=== PATIENT | female | born 1935 | race Caucasian/White ===

== ENCOUNTER 2024-04-10 16:50 | Inpatient (IN) ==
--- NOTE | 2024-04-10 17:36 | Emergency Department Note ---
Impression & Plan Acute UTI, MATHIEU (acute kidney injury), High anion gap metabolic acidosis, Hyperglycemia due to type 2 diabetes mellitus, Acute dehydration, T12 compression fracture ED Provider Note NAME: SANDRA BRASHER AGE: 88 SEX: F : 1935 ARRIVES VIA: Ambulance INFORMANT: Patient ED PROVIDER(S): Rashard Holley MD CHIEF COMPLAINT: Weakness. PLAN: Disposition: Admit MEDICAL DECISION MAKING: The patient is a pleasant 88-year-old woman with a past medical history of diabetes, hypertension, hyperlipidemia who presents to the emergency department via EMS for evaluation of generalized weakness in setting of having a fall this past Friday where the patient reports she fell onto her buttocks and then backwards onto her back and hit her head. Since then the patient has been ambulating but has had increasing generalized weakness per family report to EMS though poor history provided per report. The patient reports that she is uncertain if she fell due to dizziness or if she tripped on anything. She reports she has had a cough throughout the week. She denies nausea, vomiting or diarrhea. Patient ports that she has had low back pain since her fall but otherwise denies any additional pain. She denies fevers. On evaluation the patient is no distress, afebrile with heart rate in the 100s and vital signs otherwise stable. She appears clinically dry. She exhibits mild discomfort of the upper lumbar paraspinal region. She has no midline CTL spine tenderness palpation or step-offs. EKG without overt acute ischemia. CXR negative for acute cardiopulmonary process per my personal preliminary review/interpretation. WBC 13.3 K with neutrophilia but no left shift. H/H and platelets within normal limits. Chemistry demonstrates anion gap metabolic acidosis with anion gap of 21 bicarbonate of 13. Creatinine is 2.2. Glucose is 497 with sodium of 133 which corrects to a sodium of 140. Serum osmolality is 314 consistent with patient's clinically dry appearance. LFTs are unremarkable. Initial high- sensitivity troponin is 31 with delta 2-hour high-sensitivity troponin 49.5, nonspecific. TSH 11 with free T4 within normal limits. UA is suspicious for infection with 1+ bacteria albeit with negative nitrates. Respiratory BioFire was negative. CT of the head, chest, abdomen pelvis as well as a CT L-spine performed. Traumatic injuries limited to acute fracture of the inferior endplate of T12 with mild depression without evidence of retropulsion or subluxation. No involvement of posterior elements. VBG following initial gentle IV hydration 500 cc normal saline demonstrates pH of 7.31 with pCO2 of 34. Repeat PSG was also improving to 382. Lactic acid was 2.9 with additional IV fluid hydration ordered with caution for overload due to acute renal insufficiency. Heart rate improved. Patient agrees with plan for admission for further management. Blood cultures obtained and empiric treatment for UTI initiated with ceftriaxone. Repeat BSG is pending. Case was discussed with Reji Franciskaiser [facility]orena who will evaluate the patient for admission. Further management per admitting team. Triage Nursing notes reviewed and agree them. Prior/external medical records reviewed Vital Signs: reviewed Differential diagnosis: Infection, dehydration, metabolic abnormality, hypo/hyperglycemia, electrolyte disturbance, anemia, hypoxia, cardiac sources, intracerebral event, toxicologic, neurologic, as well as other pathologies. ER treatment provided: See below. Diagnostics interpreted by me: ECG: Sinus tachycardia, 101 bpm, no ectopy, left bundle branch block, no Sgarbossa criteria. QTc 500, QRS 132. Cardiac Monitoring: An order for continuous cardiac monitoring was placed and demonstrated Sinus tachycardia, 101 bpm, no ectopy. Laboratory studies: See below Imaging studies: See below Consultation(s): Case was discussed with Dr. Norris [facility] who will evaluate the patient for admission. HPI: The patient is a pleasant 88-year-old woman with a past medical history of diabetes, hypertension, hyperlipidemia who presents to the emergency department via EMS for evaluation of generalized weakness in setting of having a fall this past Friday where the patient reports she fell onto her buttocks and then backwards onto her back and hit her head. Since then the patient has been ambulating but has had increasing generalized weakness per family report to EMS though poor history provided per report. The patient reports that she is uncertain if she fell due to dizziness or if she tripped on anything. She reports she has had a cough throughout the week. She denies nausea, vomiting or diarrhea. Patient ports that she has had low back pain since her fall but otherwise denies any additional pain. She denies fevers. ROS: See above HPI for pertinent positives & negatives. A total of 10 systems reviewed and were otherwise negative. VITALS:See Below PHYSICAL EXAMINATION: GENERAL: Awake, alert, fatigued-appearing, in no distress HENT: Normocephalic, atraumatic. Oropharynx with dry mucous membranes and otherwise unremarkable. EYES: Normal conjunctiva. Sclera non-icteric. NECK: Supple. No nuchal rigidity. FROM. No JVD. No midline tenderness to palpation or step-offs. RESPIRATORY: Clear to auscultation. CARDIAC: Tachycardic rate, normal rhythm. Extremities warm and well perfused. Pulses equal. ABDOMEN: Soft, non-distended. No tenderness to palpation. No rebound or guarding. No masses. MUSCULOSKELETAL: Chest examination reveals no tenderness. The back is symmetrical on inspection without obvious abnormality. Mild discomfort of the upper lumbar paraspinal region. No midline CTL spine tenderness palpation or step-offs. There is no CVA tenderness to palpation. No joint edema. LOWER EXTREMITIES: Calves are equal size bilaterally and non-tender. No edema. No discoloration. NEURO: Alert to self, place and situation. Cranial nerves II-XII grossly intact. 5/5 strength and SILT x 4 extremities. Intact finger to nose. SKIN: No rash or jaundice noted. Rashard Holley MD Past Med/Surg History Problem List (Updated 04/10/24 @ 21:33 by Rashard Holley MD) T12 compression fracture (Acute) Acute dehydration (Acute) Hyperglycemia due to type 2 diabetes mellitus (Acute) High anion gap metabolic acidosis (Acute) MATHIEU (acute kidney injury) (Acute) Acute UTI (Acute) Cerebral aneurysm Medical History History of gastroesophageal reflux (GERD) Hyperlipidemia Type 2 diabetes mellitus Hypertension Social History Smoking Status: Never smoker Preferred Language: Syrian Feels Safe at Home: Yes Allergies Allergies Allergy/AdvReac Type Severity Reaction Status Date / Time No Known Allergies Allergy Unverified 08/15/18 15:13 Home Meds Home Medications Medication Instructions Recorded Confirmed amlodipine 10 mg tablet 10 mg PO DAILY 08/15/18 04/10/24 atorvastatin 10 mg tablet 10 mg PO DAILY 04/10/24 04/10/24 glipizide 2.5 mg tablet, extended 2.5 mg PO DAILY 04/10/24 04/10/24 release 24 hr lisinopril 5 mg tablet 5 mg PO DAILY 04/10/24 04/10/24 metoprolol succinate 25 mg 25 mg PO DAILY 04/10/24 04/10/24 tablet,extended release 24 hr pantoprazole 40 mg tablet,delayed 40 mg PO DAILY 04/10/24 04/10/24 release Results & Data (ED) Vital Signs Vital Signs - 24 hr 04/10/24 17:07 04/10/24 17:08 04/10/24 17:08 Pulse Rate 103 H 105 H Pulse Rate [Right Brachial] Pulse Rhythm Regular Pulse Rhythm [Right Brachial] Pulse Strength Normal Pulse Strength [Right Brachial] Respiratory Rate 14 Respiratory Effort / Characteristics Non-Labored Respiratory Depth Normal Respiratory Pattern Regular Blood Pressure 101/57 L Blood Pressure [Right Arm] Blood Pressure Mean 71 Blood Pressure Mean [Right Arm] Blood Pressure Position Lying Blood Pressure Position [Right Arm] Pulse Oximetry 94 Oxygen Delivery Method Room Air Room Air Sepsis Recent Fever Within 48 Hours No Sepsis New/Unexplained Change in Mental Status No Sepsis Action Taken by Nursing No Action Required 04/10/24 17:08 04/10/24 17:23 04/10/24 19:00 Pulse Rate Pulse Rate [Right Brachial] 105 H 93 H Pulse Rhythm Pulse Rhythm [Right Brachial] Regular Pulse Strength Pulse Strength [Right Brachial] Normal Respiratory Rate 14 16 Respiratory Effort / Characteristics Non-Labored Respiratory Depth Normal Respiratory Pattern Regular Blood Pressure Blood Pressure [Right Arm] 101/57 L 129/72 Blood Pressure Mean Blood Pressure Mean [Right Arm] 71 91 Blood Pressure Position Blood Pressure Position [Right Arm] Lying Pulse Oximetry 94 94 96 Oxygen Delivery Method Room Air Room Air Sepsis Recent Fever Within 48 Hours Sepsis New/Unexplained Change in Mental Status Sepsis Action Taken by Nursing 04/10/24 20:44 04/10/24 20:53 Pulse Rate 88 Pulse Rate [Right Brachial] 87 Pulse Rhythm Pulse Rhythm [Right Brachial] Pulse Strength Pulse Strength [Right Brachial] Respiratory Rate 16 Respiratory Effort / Characteristics Respiratory Depth Respiratory Pattern Blood Pressure Blood Pressure [Right Arm] 158/88 H Blood Pressure Mean Blood Pressure Mean [Right Arm] 111 Blood Pressure Position Blood Pressure Position [Right Arm] Pulse Oximetry 95 Oxygen Delivery Method Sepsis Recent Fever Within 48 Hours Sepsis New/Unexplained Change in Mental Status Sepsis Action Taken by Nursing Laboratory Data Attestation: I reviewed the patient's lab results. 04/10/24 16:58 04/10/24 16:58 Lab Results 12/04/10/24 04/10/24 Range/Units 16:58 17:49 18:04 WBC 13.34 H (4.8-10.8) K/ul RBC 4.40 (4.20-5.40) M/uL Hgb 13.8 (12.0-16.0) g/dl POC Hgb 13.6 (12.0-16.0) g/dl Hct 42.4 (37.0-47.0) % POC Hct 40 (37-47) % MCV 96.4 (80.0-100.0) fL MCH 31.4 (25.0-34.0) pg MCHC 32.5 (32.0-36.0) g/dL RDW Std Deviation 45.0 (36.4-46.3) fL RDW Coeff of Sarath 12.7 (11.5-14.5) % Plt Count 325 (130-400) K/uL MPV 10.9 (9.4-12.4) fL Immature Gran % (Auto) 0.4 % Neut % (Auto) 90.3 % Lymph % (Auto) 7.1 % [place] % (Auto) 1.8 % Eos % (Auto) 0.1 % Baso % (Auto) 0.3 % Neut # (Auto) 12.03 H (1.40-6.50) K/uL Lymph # (Auto) 0.95 L (1.20-3.40) K/uL [place] # (Auto) 0.24 (0.11-0.59) K/uL Eos # (Auto) 0.02 (0.00-0.50) K/uL Baso # (Auto) 0.04 (0.00-0.20) K/uL Immature Gran # (Auto) 0.06 (0.01-0.20) K/uL Echinocytes 1+ PT 11.2 (9.0-12.0) Seconds INR 1.0 (0.9-1.1) VBG pH (7.36-7.41) VBG pCO2 (38-50) mmHg VBG pO2 mmHg VBG HCO3 mmol/L VBG O2 Saturation % VBG Base Excess mEq/L POC Sodium 132 L (135-144) mmol/L Sodium 133 L (136-145) mmol/L POC Potassium 4.9 (3.3-5.0) mmol/L Potassium 4.2 (3.5-5.1) mmol/L POC Chloride 105 (101-112) mmol/L Chloride 99 (98-107) mmol/L Carbon Dioxide 13 L (21-32) mmol/L POC Total CO2 15 L (24-31) mmol/L Anion Gap 21 H (3-11) POC Anion Gap 18.0 (16-25) mmol/L POC BUN 54 H (7-18) mg/dl BUN 37 H (6-23) mg/dl Creatinine 2.20 H (0.6-1.2) mg/dl POC Creatinine 2.3 H (0.6-1.3) mg/dl Est Cr Clr Drug Dosing 16.5 ml/min eGFR 21.30 BUN/Creatinine Ratio 16.8 (10-20) Glucose 497 H* (70-99(Fasting)) mg/dl POC Glucose (other) 382 H* (70-99) mg/dl Osmolality 314 H (280-300) mOsm/kg Lactate (0.4-2.0) mmol/L Calcium 9.5 (8.6-10.3) mg/dl POC Ioniz Calcium Guillermina 1.12 (1.12-1.32) mmol/l Phosphorus 5.3 H (2.5-4.9) mg/dl Magnesium 2.6 H (1.7-2.4) mg/dl Total Bilirubin 1.1 H (0.2-1.0) mg/dl AST 38 (13-39) U/L ALT 26 (7-52) U/L Alkaline Phosphatase 80 (34-104) U/L Total Creatine Kinase 202 H (26-192) U/L Troponin I High Sens 31.1 H (0-14) pg/ml Total Protein 7.8 (6.0-8.3) gm/dl Albumin 4.6 (3.4-5.0) gm/dl Globulin 3.2 (2.5-4.0) gm/dl Albumin/Globulin Ratio 1.4 (0.9-2) Procalcitonin 1.36 H (0-0.5) ng/ml TSH 11.139 H (0.300-4.500) uIu/ml Free T4 1.10 (0.61-1.60) ng/dl Urine Color Yellow Urine Appearance Cloudy A (Clear) Urine pH 5.5 (4.5-7.5) Ur Specific [place] 1.016 (1.000-1.030) Urine Protein 1+ H (Negative) Urine Glucose (UA) Negative (Negative) Urine Ketones Negative (Negative) Urine Blood Negative (Negative) Urine Nitrite Negative (Negative) Urine Bilirubin Negative (Negative) Urine Urobilinogen Negative (Negative) Ur Leukocyte Esterase 1+ H (Negative) Urine WBC (Auto) 0-5 (0-5) /hpf Urine RBC (Auto) 0-2 (0-2) /hpf U Hyaline Cast (Auto) 11-20 H (0-2) /lpf U Epithel Cells (Auto) 3-5 H (0-2) /hpf Urine Bacteria (Auto) 1+ H (None Seen) Adenovirus (PCR) Not Detected (NotDetected) B. pertussis DNA (PCR) Not Detected (NotDetected) B.parapertussis DNA PCR Not Detected (NotDetected) C. pneumoniae DNA (PCR) Not Detected (NotDetected) Coronavirus OC43 (PCR) Not Detected (NotDetected) Coronavirus HKU1 (PCR) Not Detected (NotDetected) Coronavirus 229E (PCR) Not Detected (NotDetected) SARS-CoV-2 (PCR) Not Detected (NotDetected) Coronavirus NL63 (PCR) Not Detected (NotDetected) Human Metapneumovir PCR Not Detected (NotDetected) Influenza Type A (PCR) Not Detected (NotDetected) Influenza Type B (PCR) Not Detected (NotDetected) M. pneumoniae (PCR) Not Detected (NotDetected) Parainfluenza 1 (PCR) Not Detected (NotDetected) Parainfluenza 2 (PCR) Not Detected (NotDetected) Parainfluenza 3 (PCR) Not Detected (NotDetected) Parainfluenza 4 (PCR) Not Detected (NotDetected) RSV (PCR) Not Detected (NotDetected) Entero/Rhino (PCR) Not Detected (NotDetected) 04/10/24 04/10/24 Range/Units 19:05 19:58 WBC (4.8-10.8) K/ul RBC (4.20-5.40) M/uL Hgb (12.0-16.0) g/dl POC Hgb (12.0-16.0) g/dl Hct (37.0-47.0) % POC Hct (37-47) % MCV (80.0-100.0) fL MCH (25.0-34.0) pg MCHC (32.0-36.0) g/dL RDW Std Deviation (36.4-46.3) fL RDW Coeff of Sarath (11.5-14.5) % Plt Count (130-400) K/uL MPV (9.4-12.4) fL Immature Gran % (Auto) % Neut % (Auto) % Lymph % (Auto) % [place] % (Auto) % Eos % (Auto) % Baso % (Auto) % Neut # (Auto) (1.40-6.50) K/uL Lymph # (Auto) (1.20-3.40) K/uL [place] # (Auto) (0.11-0.59) K/uL Eos # (Auto) (0.00-0.50) K/uL Baso # (Auto) (0.00-0.20) K/uL Immature Gran # (Auto) (0.01-0.20) K/uL Echinocytes PT (9.0-12.0) Seconds INR (0.9-1.1) VBG pH 7.31 L (7.36-7.41) VBG pCO2 34 L (38-50) mmHg VBG pO2 39 mmHg VBG HCO3 17 mmol/L VBG O2 Saturation 63.5 % VBG Base Excess -8.2 mEq/L POC Sodium (135-144) mmol/L Sodium (136-145) mmol/L POC Potassium (3.3-5.0) mmol/L Potassium (3.5-5.1) mmol/L POC Chloride (101-112) mmol/L Chloride (98-107) mmol/L Carbon Dioxide (21-32) mmol/L POC Total CO2 (24-31) mmol/L Anion Gap (3-11) POC Anion Gap (16-25) mmol/L POC BUN (7-18) mg/dl BUN (6-23) mg/dl Creatinine (0.6-1.2) mg/dl POC Creatinine (0.6-1.3) mg/dl Est Cr Clr Drug Dosing ml/min eGFR BUN/Creatinine Ratio (10-20) Glucose (70-99(Fasting)) mg/dl POC Glucose (other) (70-99) mg/dl Osmolality (280-300) mOsm/kg Lactate 2.9 H* (0.4-2.0) mmol/L Calcium (8.6-10.3) mg/dl POC Ioniz Calcium Guillermina (1.12-1.32) mmol/l Phosphorus (2.5-4.9) mg/dl Magnesium (1.7-2.4) mg/dl Total Bilirubin (0.2-1.0) mg/dl AST (13-39) U/L ALT (7-52) U/L Alkaline Phosphatase (34-104) U/L Total Creatine Kinase (26-192) U/L Troponin I High Sens 49.5 H D (0-14) pg/ml Total Protein (6.0-8.3) gm/dl Albumin (3.4-5.0) gm/dl Globulin (2.5-4.0) gm/dl Albumin/Globulin Ratio (0.9-2) Procalcitonin (0-0.5) ng/ml TSH (0.300-4.500) uIu/ml Free T4 (0.61-1.60) ng/dl Urine Color Urine Appearance (Clear) Urine pH (4.5-7.5) Ur Specific [place] (1.000-1.030) Urine Protein (Negative) Urine Glucose (UA) (Negative) Urine Ketones (Negative) Urine Blood (Negative) Urine Nitrite (Negative) Urine Bilirubin (Negative) Urine Urobilinogen (Negative) Ur Leukocyte Esterase (Negative) Urine WBC (Auto) (0-5) /hpf Urine RBC (Auto) (0-2) /hpf U Hyaline Cast (Auto) (0-2) /lpf U Epithel Cells (Auto) (0-2) /hpf Urine Bacteria (Auto) (None Seen) Adenovirus (PCR) (NotDetected) B. pertussis DNA (PCR) (NotDetected) B.parapertussis DNA PCR (NotDetected) C. pneumoniae DNA (PCR) (NotDetected) Coronavirus OC43 (PCR) (NotDetected) Coronavirus HKU1 (PCR) (NotDetected) Coronavirus 229E (PCR) (NotDetected) SARS-CoV-2 (PCR) (NotDetected) Coronavirus NL63 (PCR) (NotDetected) Human Metapneumovir PCR (NotDetected) Influenza Type A (PCR) (NotDetected) Influenza Type B (PCR) (NotDetected) M. pneumoniae (PCR) (NotDetected) Parainfluenza 1 (PCR) (NotDetected) Parainfluenza 2 (PCR) (NotDetected) Parainfluenza 3 (PCR) (NotDetected) Parainfluenza 4 (PCR) (NotDetected) RSV (PCR) (NotDetected) Entero/Rhino (PCR) (NotDetected) Administered Medications Discontinued Medications Sodium Chloride (Nss) 500 mls @ 999 mls/hr IV .Q31M ONE Stop: 04/10/24 17:57 Last Infusion: 04/10/24 18:24 Dose: Infused Documented By: Admin: 04/10/24 17:52 Dose: 999 mls/hr Documented By: LIOR Acetaminophen (Ofirmev) 1,000 mg in 100 mls @ 400 mls/hr IV NOW STA Stop: 04/10/24 17:41 Last Infusion: 04/10/24 18:06 Dose: Infused Documented By: Admin: 04/10/24 17:49 Dose: 400 mls/hr Documented By: LIOR Sodium Chloride (Nss) 500 mls @ 999 mls/hr IV .Q31M ONE Stop: 04/10/24 20:15 Last Infusion: 04/10/24 20:45 Dose: Infused Documented By: Admin: 04/10/24 20:03 Dose: 999 mls/hr Documented By: BEATRICE Ceftriaxone Sodium (Rocephin) 2,000 mg in 50 mls @ 100 mls/hr IV NOW STA Stop: 04/10/24 20:14 Last Infusion: 04/10/24 20:44 Dose: Infused Documented By: Admin: 04/10/24 20:15 Dose: 100 mls/hr Documented By: BEATRICE Imaging Data Radiologist's Impression: Chest X-Ray 04/10/24 17:19 Exam(s): XR CXR 1 VIEW EXAM: XR Chest, 1 View CLINICAL HISTORY: Reason for exam: weakness. TECHNIQUE: Frontal view of the chest. COMPARISON: 04/10/2024 FINDINGS: Lungs: No consolidation. No overt edema. Pleural space: No pleural effusion. No pneumothorax. Heart: Bulky mitral annular calcifications. No cardiomegaly. IMPRESSION: No acute cardiopulmonary abnormality. Electronically signed by: Jose Lee MD 04/10/24 19:[address] 04/10/24 17:22 EXAM: CT Cervical Spine Without Intravenous Contrast INDICATION: Pain and weakness following fall 6 days ago. TECHNIQUE: Axial computed tomography images of the cervical spine without intravenous contrast. Sagittal and coronal reformatted images were created and reviewed. This CT exam was performed using one or more of the following dose reduction techniques: automated exposure control, adjustment of the mA and/or kV according to patient size, and/or use of iterative reconstruction technique. COMPARISON: 08/15/2018 FINDINGS: Limitations: None. Vertebrae: No significant change diffuse moderate facet arthrosis. Stable C5-C7 spondylosis at C5-C6 uncal spurring. There is stable grade 1 degenerative anterolisthesis C4 on C5 and C6 on C7. No fracture. Moderate to space narrowing C5-C6. Discs/spinal canal/neural foramina: See above. Soft tissues: No significant abnormality noted. Vasculature: There is atherosclerosis of the intracranial vertebral arteries and the cervical carotid arteries. Lung apices: No significant abnormality noted. IMPRESSION: Degenerative changes. No cervical fracture. ACT 112: Negative or not required by law. Electronically signed by Sandra Palacios 04-10-2024 6:[address] 04/10/24 17:22 EXAM: CT Head Without Intravenous Contrast INDICATION: Weakness and pain 6 days following fall. TECHNIQUE: Axial computed tomography images of the head/brain without intravenous contrast. Sagittal and/or coronal reformats are provided. Sagittal and coronal reformatted images were created and reviewed. This CT exam was performed using one or more of the following dose reduction techniques: automated exposure control, adjustment of the mA and/or kV according to patient size, and/or use of iterative reconstruction technique. COMPARISON: 08/15/2018 FINDINGS: Artifacts: Artifact from right anterior cavernous clip. Limitations: None. Brain and extra-axial spaces: There is age appropriate cortical atrophy and chronic ischemic periventricular white matter hypodensity. No acute infarct, hemorrhage or mass noted. Bones/joints: No acute changes. Soft tissues: See above. Vasculature: No acute abnormality noted. Sinuses: No layering fluid in the visualized portions of the paranasal sinuses. Mastoid air cells: No mastoid effusion. Orbits: No significant abnormality noted. IMPRESSION: Cerebral atrophy. No acute changes. ACT 112: Negative or not required by law. Electronically signed by Sandra Palacios 04-10-2024 6:39 PM Abdomen/Pelvis CT 04/10/24 18:04 EXAM: CT Abdomen and Pelvis Without Intravenous Contrast INDICATION: Pain and weakness following fall 6 days ago. TECHNIQUE: Assessment of intra-abdominal organ integrity is limited in the absence of IV contrast. COMPARISON: 08/15/2018 FINDINGS: Limitations: None. Lung bases: No abnormality noted. Pleural space: No visualized pleural effusion or pneumothorax. Heart: Increased cardiomegaly. Dense mitral annular calcification. There is moderate coronary calcification. No pericardial effusion. Mediastinum: No abnormality noted. ABDOMEN: Liver: Lack of intravenous contrast limits detection of some masses. No abnormality noted. Gallbladder and bile ducts: Cholecystectomy. No ductal dilation or stone noted. Pancreas: No pancreatic mass, calcification, inflammation or ductal dilation noted. Spleen: No significant abnormality noted. Adrenals: No significant abnormality noted. Kidneys and ureters: 3 mm nonobstructing right kidney stone. Left kidney appears normal. No hydronephrosis. Stomach and bowel: Moderate stool in the rectal vault. Extensive diverticulosis. Small amounts of prominent layering fluid noted in the colon and some small bowel loops. There is no inflammatory process noted. There is an acute minimally depressed fracture of the inferior endplate of T12 without retropulsion. No other fracture noted. PELVIS: Appendix: No findings to suggest acute appendicitis. Bladder: Appears normal for the degree of filling. No stones or inflammation. No large mass. Masses may not be detected in the absence of opacification. Reproductive: Hysterectomy. ABDOMEN and PELVIS: Intraperitoneal space: No free air. No significant fluid collection. Bones/joints: See above. Soft tissues: No significant abnormality noted. Vasculature: Atherosclerotic calcification of the aorta and branches. No aneurysm. Lymph nodes: No pathologically enlarged lymph nodes. IMPRESSION: 1. Study is performed without IV contrast which limits assessment. No traumatic change identified. Impression moderate rectal stool and extensive colonic diverticulosis. There may be minimal developing ileus. 2. Nonobstructing right kidney stone. ACT 112: Negative or not required by law. Electronically signed by Sandra Palacios 04-10-2024 6:[address] 04/10/24 18:04 EXAM: CT Chest Without Intravenous Contrast INDICATION: Pain and weakness following fall 6 days ago. TECHNIQUE: Assessment of aortic integrity limited in the absence of IV contrast. COMPARISON: No relevant prior studies available. FINDINGS: Limitations: None. Lungs and pleural spaces: There is airway thickening and mild atelectasis in the lower lobes. There is minimal mucus in the proximal trachea. No significant effusion. Heart: Cardiomegaly. Dense mitral annular calcification. There is moderate coronary calcification. No pericardial effusion. Mediastinum: There is diffuse mild distention of the esophagus. Thyroid: No abnormality noted. Bones/joints: Diffuse spondylosis of the thoracic segments noted. No thoracic fracture or subluxation. No stenosis. Soft tissues: No significant abnormality noted. Vasculature: Atherosclerotic aorta. No aneurysm. Lymph nodes: No enlarged lymph nodes. Kidneys and ureters: There is a 3 mm nonobstructing right kidney stone. IMPRESSION: 1. No traumatic change noted in the thorax. 2. See separately dictated lumbar spine CT report. ACT 112: Negative or not required by law. Electronically signed by Sandra Palacios 04-10-2024 6:[address] 04/10/24 18:04 EXAM: CT Lumbar Spine Without Intravenous Contrast INDICATION: Pain following fall 6 days ago. TECHNIQUE: Axial computed tomography images of the lumbar spine without intravenous contrast. Sagittal and coronal reformatted images were created and reviewed. This CT exam was performed using one or more of the following dose reduction techniques: automated exposure control, adjustment of the mA and/or kV according to patient size, and/or use of iterative reconstruction technique. COMPARISON: No relevant prior studies available. FINDINGS: Limitations: None. Vertebrae: There is an acute fracture of the inferior endplate of the T12 vertebra which contains small ribs. No retropulsion. Moderate generalized facet arthrosis and spondylosis. There is grade 1 degenerative anterolisthesis of L4 and L5. Sacrum/coccyx: No significant abnormality noted. No acute change noted. Discs/spinal canal/neural foramina: There is generalized disc bulge at L4-L5 with canal stenosis. There is mild right lateral nerve root abutment of the exited L5 root. Soft tissues: No significant abnormality noted. Kidneys and ureters: 3 mm nonobstructing right kidney stone. IMPRESSION: There is an acute mildly compressed fracture of the inferior endplate of T12 without retropulsion. No lumbar fracture noted. ACT 112: Negative or not required by law. Electronically signed by Sandra Palacios 04-10-2024 6:[address] 04/10/24 18:04 EXAM: CT Thoracic Spine Without Intravenous Contrast INDICATION: Pain and weakness following fall 6 days ago. TECHNIQUE: Axial computed tomography images of the thoracic spine without intravenous contrast. Sagittal and coronal reformatted images were created and reviewed. This CT exam was performed using one or more of the following dose reduction techniques: automated exposure control, adjustment of the mA and/or kV according to patient size, and/or use of iterative reconstruction technique. COMPARISON: No relevant prior studies available. FINDINGS: Limitations: None. Vertebrae: There is an acute fracture of the inferior endplate of T12 with mild depression. No retropulsion or subluxation. There is mild scoliotic curvature of the spine and accentuated kyphosis. There is diffuse facet arthrosis and moderate spondylosis. Discs/spinal canal/neural foramina: Multilevel moderate to space narrowing present. No stenosis. Other bones/joints: No abnormality noted. Soft tissues: No significant abnormality noted. Lungs and pleural spaces: Airway thickening and atelectasis noted in the lower lobes. Heart: No abnormality noted. Mediastinum: No significant abnormality noted. Liver: No significant abnormality noted. IMPRESSION: 1. Acute fracture inferior endplate of T12. 2. Airway thickening and atelectasis noted in the lower lobes. This could be acute or chronic. ACT 112: Negative or not required by law. Electronically signed by Sandra Palacios 04-10-2024 6:54 PM Discharge Plan Visit Data Chief Complaint: Weakness Stated Complaint: GEN. WEAKNESS, S/P FALL FRIDAY ED Provider: Rashard Holley Discharge Problem: Acute UTI, MATHIEU (acute kidney injury), High anion gap metabolic acidosis, Hyperglycemia due to type 2 diabetes mellitus, Acute dehydration, T12 compression fracture Forms Stand Alone Forms: [email or web address] Prescriptions Prescriptions: No Action amlodipine 10 mg tablet 10 mg PO DAILY Patient Comments: patient unsure of name and strength for blood pressure medication. found in external med history. atorvastatin 10 mg tablet 10 mg PO DAILY glipizide 2.5 mg tablet extended release 24hr 2.5 mg PO DAILY pantoprazole 40 mg tablet,delayed release (DR/EC) 40 mg PO DAILY lisinopril 5 mg tablet 5 mg PO DAILY metoprolol succinate 25 mg tablet extended release 24 hr 25 mg PO DAILY Referrals Referrals: Zainab Herndon DO [Primary Care Provider] - Discharge Problem: Hyperglycemia due to type 2 diabetes mellitus Qualifiers: Diabetes mellitus fdc insulin use: unspecified bed bug exterminator insulin use status Qualified Code(s): E11.65 - Type 2 diabetes mellitus with hyperglycemia T12 compression fracture Qualifiers: Encounter type: initial encounter Qualified Code(s): S22.080A - Wedge compression fracture of T11-T12 vertebra, initial encounter for closed fracture
[2024-04-10 17:37] LABS: Hematocrit (blood only) 42.4 % (37.0-47.0); Hemoglobin 13.8 g/dl (12.0-16.0); Mean Corpuscular Hemoglobin 31.4 pg (25.0-34.0); Mean Corpuscular Hgb Conc 32.5 g/dL (32.0-36.0); Mean Corpuscular Volume 96.4 fL (80.0-100.0); Mean Platelet Volume 10.9 fL (9.4-12.4); Platelet Count 325 K/uL (130-400); RDW Coefficient of Variation 12.7 % (11.5-14.5); White Blood Count 13.34 K/ul (4.8-10.8)
[2024-04-10] MEDS: ACETAMINOPHEN 1,000 MG/100 ML VIAL IV STA (17:49)
[2024-04-10] MEDS: SODIUM CHLORIDE 0.9% 500 ML IV ONE ×2 (17:52→20:03)
[2024-04-10 17:54] LABS: Basophils # (auto) 0.04 K/uL (0.00-0.20); Basophils % (auto) 0.3 %; Echinocytes 1+; Eosinophils # (auto) 0.02 K/uL (0.00-0.50); Eosinophils % (auto) 0.1 %; Immature Granulocytes # (auto) 0.06 K/uL (0.01-0.20); Immature Granulocytes % (auto) 0.4 %; Lymphocytes # (auto) 0.95 K/uL (1.20-3.40); Lymphocytes % (auto) 7.1 %; Monocytes # (auto) 0.24 K/uL (0.11-0.59); Monocytes % (auto) 1.8 %; Neutrophils # (auto) 12.03 K/uL (1.40-6.50); Neutrophils % (auto) 90.3 %
[2024-04-10 18:00] LABS: Albumin Globulin Ratio 1.4 (0.9-2); Albumin Level 4.6 gm/dl (3.4-5.0); BUN Creatinine Ratio 16.8 (10-20); Bilirubin,Total 1.1 mg/dl (0.2-1.0); Calcium 9.5 mg/dl (8.6-10.3); Creatinine Clr Calc Pharmacy 16.5 ml/min; Globulin 3.2 gm/dl (2.5-4.0); Magnesium 2.6 mg/dl (1.7-2.4); Phosphorus 5.3 mg/dl (2.5-4.9); Potassium 4.2 mmol/L (3.5-5.1); Total Protein 7.8 gm/dl (6.0-8.3); Troponin I High Sensitivity 31.1 pg/ml (0-14)
[2024-04-10 18:09] LABS: Prothrombin Time 11.2 Seconds (9.0-12.0)
[2024-04-10 18:14] LABS: Appearance Urine Cloudy (Clear); Bacteria Urine Automated 1+ (None Seen); Bilirubin Urine Negative (Negative); Blood Urine Negative (Negative); Color Urine Yellow; Glucose Urine UA Negative (Negative); Ketones Urine Negative (Negative); Leukocyte Esterase Urine 1+ (Negative); Nitrite Urine Negative (Negative); Protein Urine 1+ (Negative); RBC Urine Automated 0-2 /hpf (0-2); Specific Gravity Urine 1.016 (1.000-1.030); Urobilinogen Urine Negative (Negative); WBC Urine Automated 0-5 /hpf (0-5); pH Urine 5.5 (4.5-7.5)
[2024-04-10 18:15] LABS: Thyroid Stimulating Hormone 11.139 uIu/ml (0.300-4.500)
[2024-04-10 18:15] LABS: iSTAT Creatinine 2.3 mg/dl (0.6-1.3); iSTAT Hemoglobin 13.6 g/dl (12.0-16.0); iSTAT Ionized Calcium 1.12 mmol/l (1.12-1.32); iSTAT Potassium 4.9 mmol/L (3.3-5.0)
--- NOTE | 2024-04-10 18:39 | CT Scan Report ---
EXAM: CT Head Without Intravenous Contrast INDICATION: Weakness and pain 6 days following fall. TECHNIQUE: Axial computed tomography images of the head/brain without intravenous contrast. Sagittal and/or coronal reformats are provided. Sagittal and coronal reformatted images were created and reviewed. This CT exam was performed using one or more of the following dose reduction techniques: automated exposure control, adjustment of the mA and/or kV according to patient size, and/or use of iterative reconstruction technique. COMPARISON: 08/15/2018 FINDINGS: Artifacts: Artifact from right anterior cavernous clip. Limitations: None. Brain and extra-axial spaces: There is age appropriate cortical atrophy and chronic ischemic periventricular white matter hypodensity. No acute infarct, hemorrhage or mass noted. Bones/joints: No acute changes. Soft tissues: See above. Vasculature: No acute abnormality noted. Sinuses: No layering fluid in the visualized portions of the paranasal sinuses. Mastoid air cells: No mastoid effusion. Orbits: No significant abnormality noted. IMPRESSION: Cerebral atrophy. No acute changes. ACT 112: Negative or not required by law. Electronically signed by Sandra Palacios 04-10-2024 6:39 PM
--- NOTE | 2024-04-10 18:42 | CT Scan Report ---
EXAM: CT Cervical Spine Without Intravenous Contrast INDICATION: Pain and weakness following fall 6 days ago. TECHNIQUE: Axial computed tomography images of the cervical spine without intravenous contrast. Sagittal and coronal reformatted images were created and reviewed. This CT exam was performed using one or more of the following dose reduction techniques: automated exposure control, adjustment of the mA and/or kV according to patient size, and/or use of iterative reconstruction technique. COMPARISON: 08/15/2018 FINDINGS: Limitations: None. Vertebrae: No significant change diffuse moderate facet arthrosis. Stable C5-C7 spondylosis at C5-C6 uncal spurring. There is stable grade 1 degenerative anterolisthesis C4 on C5 and C6 on C7. No fracture. Moderate to space narrowing C5-C6. Discs/spinal canal/neural foramina: See above. Soft tissues: No significant abnormality noted. Vasculature: There is atherosclerosis of the intracranial vertebral arteries and the cervical carotid arteries. Lung apices: No significant abnormality noted. IMPRESSION: Degenerative changes. No cervical fracture. ACT 112: Negative or not required by law. Electronically signed by Sandra Palacios 04-10-2024 6:41 PM
--- NOTE | 2024-04-10 18:44 | CT Scan Report ---
EXAM: CT Chest Without Intravenous Contrast INDICATION: Pain and weakness following fall 6 days ago. TECHNIQUE: Assessment of aortic integrity limited in the absence of IV contrast. COMPARISON: No relevant prior studies available. FINDINGS: Limitations: None. Lungs and pleural spaces: There is airway thickening and mild atelectasis in the lower lobes. There is minimal mucus in the proximal trachea. No significant effusion. Heart: Cardiomegaly. Dense mitral annular calcification. There is moderate coronary calcification. No pericardial effusion. Mediastinum: There is diffuse mild distention of the esophagus. Thyroid: No abnormality noted. Bones/joints: Diffuse spondylosis of the thoracic segments noted. No thoracic fracture or subluxation. No stenosis. Soft tissues: No significant abnormality noted. Vasculature: Atherosclerotic aorta. No aneurysm. Lymph nodes: No enlarged lymph nodes. Kidneys and ureters: There is a 3 mm nonobstructing right kidney stone. IMPRESSION: 1. No traumatic change noted in the thorax. 2. See separately dictated lumbar spine CT report. ACT 112: Negative or not required by law. Electronically signed by Sandra Palacios 04-10-2024 6:44 PM
[2024-04-10 18:45] LABS: Adenovirus PCR Not Detected (NotDetected); Bordetella parapertussis PCR Not Detected (NotDetected); Bordetella pertussis PCR Not Detected (NotDetected); Chlamydia pneumoniae PCR Not Detected (NotDetected); Coronavirus 229E PCR Not Detected (NotDetected); Coronavirus CoV-2 (COVID19)PCR Not Detected (NotDetected); Coronavirus HKU1 PCR Not Detected (NotDetected); Coronavirus NL63 PCR Not Detected (NotDetected); Coronavirus OC43PCR Not Detected (NotDetected); Human Metapneumovirus PCR Not Detected (NotDetected); Influenza A PCR Not Detected (NotDetected); Influenza B PCR Not Detected (NotDetected); Mycoplasma pneumoniae PCR Not Detected (NotDetected); Parainfluenza Virus 1 PCR Not Detected (NotDetected); Parainfluenza Virus 2 PCR Not Detected (NotDetected); Parainfluenza Virus 3 PCR Not Detected (NotDetected); Parainfluenza Virus 4 PCR Not Detected (NotDetected); Respiratory Syncytial VirusPCR Not Detected (NotDetected); Rhinovirus/Enterovirus PCR Not Detected (NotDetected)
--- NOTE | 2024-04-10 18:48 | CT Scan Report ---
EXAM: CT Lumbar Spine Without Intravenous Contrast INDICATION: Pain following fall 6 days ago. TECHNIQUE: Axial computed tomography images of the lumbar spine without intravenous contrast. Sagittal and coronal reformatted images were created and reviewed. This CT exam was performed using one or more of the following dose reduction techniques: automated exposure control, adjustment of the mA and/or kV according to patient size, and/or use of iterative reconstruction technique. COMPARISON: No relevant prior studies available. FINDINGS: Limitations: None. Vertebrae: There is an acute fracture of the inferior endplate of the T12 vertebra which contains small ribs. No retropulsion. Moderate generalized facet arthrosis and spondylosis. There is grade 1 degenerative anterolisthesis of L4 and L5. Sacrum/coccyx: No significant abnormality noted. No acute change noted. Discs/spinal canal/neural foramina: There is generalized disc bulge at L4-L5 with canal stenosis. There is mild right lateral nerve root abutment of the exited L5 root. Soft tissues: No significant abnormality noted. Kidneys and ureters: 3 mm nonobstructing right kidney stone. IMPRESSION: There is an acute mildly compressed fracture of the inferior endplate of T12 without retropulsion. No lumbar fracture noted. ACT 112: Negative or not required by law. Electronically signed by Sandra Palacios 04-10-2024 6:47 PM
--- NOTE | 2024-04-10 18:52 | CT Scan Report ---
EXAM: CT Abdomen and Pelvis Without Intravenous Contrast INDICATION: Pain and weakness following fall 6 days ago. TECHNIQUE: Assessment of intra-abdominal organ integrity is limited in the absence of IV contrast. COMPARISON: 08/15/2018 FINDINGS: Limitations: None. Lung bases: No abnormality noted. Pleural space: No visualized pleural effusion or pneumothorax. Heart: Increased cardiomegaly. Dense mitral annular calcification. There is moderate coronary calcification. No pericardial effusion. Mediastinum: No abnormality noted. ABDOMEN: Liver: Lack of intravenous contrast limits detection of some masses. No abnormality noted. Gallbladder and bile ducts: Cholecystectomy. No ductal dilation or stone noted. Pancreas: No pancreatic mass, calcification, inflammation or ductal dilation noted. Spleen: No significant abnormality noted. Adrenals: No significant abnormality noted. Kidneys and ureters: 3 mm nonobstructing right kidney stone. Left kidney appears normal. No hydronephrosis. Stomach and bowel: Moderate stool in the rectal vault. Extensive diverticulosis. Small amounts of prominent layering fluid noted in the colon and some small bowel loops. There is no inflammatory process noted. There is an acute minimally depressed fracture of the inferior endplate of T12 without retropulsion. No other fracture noted. PELVIS: Appendix: No findings to suggest acute appendicitis. Bladder: Appears normal for the degree of filling. No stones or inflammation. No large mass. Masses may not be detected in the absence of opacification. Reproductive: Hysterectomy. ABDOMEN and PELVIS: Intraperitoneal space: No free air. No significant fluid collection. Bones/joints: See above. Soft tissues: No significant abnormality noted. Vasculature: Atherosclerotic calcification of the aorta and branches. No aneurysm. Lymph nodes: No pathologically enlarged lymph nodes. IMPRESSION: 1. Study is performed without IV contrast which limits assessment. No traumatic change identified. Impression moderate rectal stool and extensive colonic diverticulosis. There may be minimal developing ileus. 2. Nonobstructing right kidney stone. ACT 112: Negative or not required by law. Electronically signed by Sandra Palacios 04-10-2024 6:51 PM
--- NOTE | 2024-04-10 18:54 | CT Scan Report ---
EXAM: CT Thoracic Spine Without Intravenous Contrast INDICATION: Pain and weakness following fall 6 days ago. TECHNIQUE: Axial computed tomography images of the thoracic spine without intravenous contrast. Sagittal and coronal reformatted images were created and reviewed. This CT exam was performed using one or more of the following dose reduction techniques: automated exposure control, adjustment of the mA and/or kV according to patient size, and/or use of iterative reconstruction technique. COMPARISON: No relevant prior studies available. FINDINGS: Limitations: None. Vertebrae: There is an acute fracture of the inferior endplate of T12 with mild depression. No retropulsion or subluxation. There is mild scoliotic curvature of the spine and accentuated kyphosis. There is diffuse facet arthrosis and moderate spondylosis. Discs/spinal canal/neural foramina: Multilevel moderate to space narrowing present. No stenosis. Other bones/joints: No abnormality noted. Soft tissues: No significant abnormality noted. Lungs and pleural spaces: Airway thickening and atelectasis noted in the lower lobes. Heart: No abnormality noted. Mediastinum: No significant abnormality noted. Liver: No significant abnormality noted. IMPRESSION: 1. Acute fracture inferior endplate of T12. 2. Airway thickening and atelectasis noted in the lower lobes. This could be acute or chronic. ACT 112: Negative or not required by law. Electronically signed by Sandra Palacios 04-10-2024 6:54 PM
[2024-04-10 19:06] LABS: T4 Free Thyroxine 1.1 ng/dl (0.61-1.60)
--- NOTE | 2024-04-10 19:30 | XRay Report ---
Exam(s): XR CXR 1 VIEW EXAM: XR Chest, 1 View CLINICAL HISTORY: Reason for exam: weakness. TECHNIQUE: Frontal view of the chest. COMPARISON: 04/10/2024 FINDINGS: Lungs: No consolidation. No overt edema. Pleural space: No pleural effusion. No pneumothorax. Heart: Bulky mitral annular calcifications. No cardiomegaly. IMPRESSION: No acute cardiopulmonary abnormality. Electronically signed by: Jose Lee MD 04/10/24 19:30 PM
[2024-04-10 20:00] LABS: Troponin I High Sensitivity 49.5 pg/ml (0-14)
[2024-04-10 20:10] LABS: Base Excess VBG -8.2 mEq/L; HCO3 VBG 17 mmol/L; Oxygen Saturation VBG 63.5 %; PCO2 VBG 34 mmHg (38-50); PO2 VBG 39 mmHg; pH VBG 7.31 (7.36-7.41)
[2024-04-10] MEDS: cefTRIAXone SODIUM 2,000 MG/50 ML BAG IV STA (20:15)
[2024-04-10] MEDS: NovoLIN-R INSULIN PER UNIT CHARGE IV STA (21:14)
[2024-04-10] MEDS: PIPERACILLIN/TAZOBACTAM 4.5 GM/100 ML BAG IV ONE (21:20)
[2024-04-10] MEDS: SODIUM CHLORIDE 0.9% 1,000 ML IV ONE (21:20)
--- NOTE | 2024-04-10 21:56 | History & Physical Report ---
Date of Service April 10, 2024 Assessment & Plan (1) Encephalopathy: Plan: Encephalopathy Delirium on dementia Multifactorial: Severe sepsis (SIRS plus ARF on CKD plus encephalopathy plus lactic acidosis) secondary to complicated UTI Hyperglycemic crisis (DKA HHS combo), history DM 2 on oral medications, well- controlled as of recent hemoglobin A1c of 6.05 January 2024 Troponin elevation secondary to illness Traumatic T12 compression fracture, patient currently denies pain. chronic LBBB hypertension, BP on the lower side hyperlipidemia, on statin Rx history SAH status post coil embolization Subclinical hypothyroidism Admit to medical telemetry CS, Zosyn for now on the basis of pathogen history (history E. coli, Enterococcus on review of prior urine CS) Monitor creatinine and lactic acid response to IVF Basal bolus insulin, ISS BG goal 1 10-1 40, update hemoglobin A1c; IV insulin if with persistent AGMA Follow troponin, TTE if with progression Orthopedic spine consult Re: T12 compression fracture Initiate levothyroxine, recheck outpatient TSH after 6 weeks DVT prophylaxis. SCDs re: history SAH PT OT eval once medically stable DNR as per discussion with patient's /POA, Lavern Ronaldo Ruckerphart. He requests updates providers through [phone]. Text document was generated using [employer] voice recognition software. It may contain grammatical or spelling errors. Kindly contact undersigned for clarification of any documentation item in question. History of Present Illness Chief Complaint: Could not walk as per patient back pain, fall, worsening confusion as per family Primary Care Provider: Zainab Herndon DO History obtained from patient, family, and records. Limited history from patient secondary to confusion. Medical history significant for chronic LBBB, hypertension, hyperlipidemia, history SAH status post coil embolization, CRI (baseline creatinine 1.2), DM2 on oral medications, GERD, dementia, mood disorder. Patient fell at home few days ago. No syncope as per family, no chest pain, no SOB, no head trauma. Patient complaining of back pain without radiation. Patient later on noted to be more confused than usual. Loose stools noted. Trouble walking from weakness. Patient brought to ER for evaluation. IV ceftriaxone administered at the ER. BSG 497 upon arrival at the ER. Medical History as above Surgical History : ANDRAE, BSO, cholecystectomy, vascular procedure Family History : Alcoholism Personal/Social history : Non-smoker, occasional EtOH intake, retired from factory work, lives with Allergies Allergy/AdvReac Type Severity Reaction Status Date / Time No Known Allergies Allergy Unverified 08/15/18 15:13 Home Medications Medication Instructions Recorded Confirmed Type amlodipine 10 mg tablet 10 mg PO DAILY 08/15/18 04/10/24 History atorvastatin 10 mg tablet 10 mg PO DAILY 04/10/24 04/10/24 History glipizide 2.5 mg tablet, extended 2.5 mg PO DAILY 04/10/24 04/10/24 History release 24 hr lisinopril 5 mg tablet 5 mg PO DAILY 04/10/24 04/10/24 History metoprolol succinate 25 mg 25 mg PO DAILY 04/10/24 04/10/24 History tablet,extended release 24 hr pantoprazole 40 mg tablet,delayed 40 mg PO DAILY 04/10/24 04/10/24 History release Past Med/Surg History Problem List (Updated 04/11/24 @ 01:31 by Matt Norris MD) Encephalopathy T12 compression fracture (Acute) Acute dehydration (Acute) Hyperglycemia due to type 2 diabetes mellitus (Acute) High anion gap metabolic acidosis (Acute) MATHIEU (acute kidney injury) (Acute) Acute UTI (Acute) Cerebral aneurysm Medical History History of gastroesophageal reflux (GERD) Hyperlipidemia Type 2 diabetes mellitus Hypertension Social History Smoking Status: Unknown if ever smoked Hx Alcohol Use: No Hx Substance Use: No Preferred Language: Nigerien [employer] Required: No Beliefs That Will Affect Care: None Current Living Situation: Spouse Feels Safe at Home: Yes Safety Concerns: Feels Safe At This Time Assistive Devices: Cane, Denture - Upper and Walker Assistive Devices Comment: pt states she has a walker and cane at home Review of Systems Review of Systems: Could not be reliably obtained secondary to dementia Physical Exam Physical Exam: GENERAL: Demented, comfortable, no respiratory distress SKIN: Normal color, warm HEENT: [place] palpebral conjunctivae, no ptosis, dry buccal mucosa NECK : Supple, no tenderness CHEST : CTA, no tenderness HEART : RRR, no obvious murmurs BACK : Minimal mid back tenderness, negative SLR ABDOMEN: Some distention, nontender EXTREMITIES : No LE swelling/tenderness, no other conspicuous deformities noted NEUROLOGIC : Demented, no facial asymmetry, MMTS BUE 4/5. BLE 3/5, gait and stance not assessed Results & Data Results & Data Vital Signs (Past 12 Hours) Vital Signs Temp Pulse Pulse Resp BP BP Pulse Ox 04/10/24 21:21 36.4 C L 04/10/24 20:53 88 04/10/24 20:44 87 16 158/88 H 95 04/10/24 19:00 93 H 16 129/72 96 04/10/24 17:23 94 04/10/24 17:08 105 H 14 101/57 L 94 04/10/24 17:08 04/10/24 17:08 105 H 14 101/57 L 94 04/10/24 17:07 103 H O2 Del Method 04/10/24 21:21 04/10/24 20:53 04/10/24 20:44 04/10/24 19:00 04/10/24 17:23 Room Air 04/10/24 17:08 Room Air 04/10/24 17:08 Room Air 04/10/24 17:08 Room Air 04/10/24 17:07 Laboratory Results Laboratory Results WBC 13.34 K/ul (4.8-10.8) H 04/10/24 16:58 RBC 4.40 M/uL (4.20-5.40) 04/10/24 16:58 Hgb 13.8 g/dl (12.0-16.0) 04/10/24 16:58 POC Hgb 13.6 g/dl (12.0-16.0) 04/10/24 18:04 Hct 42.4 % (37.0-47.0) 04/10/24 16:58 POC Hct 40 % (37-47) 04/10/24 18:04 MCV 96.4 fL (80.0-100.0) 04/10/24 16:58 MCH 31.4 pg (25.0-34.0) 04/10/24 16:58 MCHC 32.5 g/dL (32.0-36.0) 04/10/24 16:58 RDW Std Deviation 45.0 fL (36.4-46.3) 04/10/24 16:58 RDW Coeff of Sarath 12.7 % (11.5-14.5) 04/10/24 16:58 Plt Count 325 K/uL (130-400) 04/10/24 16:58 MPV 10.9 fL (9.4-12.4) 04/10/24 16:58 Immature Gran % (Auto) 0.4 % 04/10/24 16:58 Neut % (Auto) 90.3 % 04/10/24 16:58 Lymph % (Auto) 7.1 % 04/10/24 16:58 Mower % (Auto) 1.8 % 04/10/24 16:58 Eos % (Auto) 0.1 % 04/10/24 16:58 Baso % (Auto) 0.3 % 04/10/24 16:58 Neut # (Auto) 12.03 K/uL (1.40-6.50) H 04/10/24 16:58 Lymph # (Auto) 0.95 K/uL (1.20-3.40) L 04/10/24 16:58 Mower # (Auto) 0.24 K/uL (0.11-0.59) 04/10/24 16:58 Eos # (Auto) 0.02 K/uL (0.00-0.50) 04/10/24 16:58 Baso # (Auto) 0.04 K/uL (0.00-0.20) 04/10/24 16:58 Immature Gran # (Auto) 0.06 K/uL (0.01-0.20) 04/10/24 16:58 Echinocytes 1+ 04/10/24 16:58 PT 11.2 Seconds (9.0-12.0) 04/10/24 16:58 INR 1.0 (0.9-1.1) 04/10/24 16:58 VBG pH 7.31 (7.36-7.41) L 04/10/24 19:58 VBG pCO2 34 mmHg (38-50) L 04/10/24 19:58 VBG pO2 39 mmHg 04/10/24 19:58 VBG HCO3 17 mmol/L 04/10/24 19:58 VBG O2 Saturation 63.5 % 04/10/24 19:58 VBG Base Excess -8.2 mEq/L 04/10/24 19:58 POC Sodium 132 mmol/L (135-144) L 04/10/24 18:04 Sodium 133 mmol/L (136-145) L 04/10/24 16:58 POC Potassium 4.9 mmol/L (3.3-5.0) 04/10/24 18:04 Potassium 4.2 mmol/L (3.5-5.1) 04/10/24 16:58 POC Chloride 105 mmol/L (101-112) 04/10/24 18:04 Chloride 99 mmol/L (98-107) 04/10/24 16:58 Carbon Dioxide 13 mmol/L (21-32) L 04/10/24 16:58 POC Total CO2 15 mmol/L (24-31) L 04/10/24 18:04 Anion Gap 21 (3-11) H 04/10/24 16:58 POC Anion Gap 18.0 mmol/L (16-25) 04/10/24 18:04 POC BUN 54 mg/dl (7-18) H 04/10/24 18:04 BUN 37 mg/dl (6-23) H 04/10/24 16:58 Creatinine 2.20 mg/dl (0.6-1.2) H 04/10/24 16:58 POC Creatinine 2.3 mg/dl (0.6-1.3) H 04/10/24 18:04 Est Cr Clr Drug Dosing 16.5 ml/min 04/10/24 16:58 eGFR 21.30 04/10/24 16:58 BUN/Creatinine Ratio 16.8 (10-20) 04/10/24 16:58 Glucose 497 mg/dl (70-99(Fasting)) H* 04/10/24 16:58 POC Glucose (other) 382 mg/dl (70-99) H* 04/10/24 18:04 Osmolality 314 mOsm/kg (280-300) H 04/10/24 16:58 Lactate 2.9 mmol/L (0.4-2.0) H* 04/10/24 19:58 Calcium 9.5 mg/dl (8.6-10.3) 04/10/24 16:58 POC Ioniz Calcium Guillermina 1.12 mmol/l (1.12-1.32) 04/10/24 18:04 Phosphorus 5.3 mg/dl (2.5-4.9) H 04/10/24 16:58 Magnesium 2.6 mg/dl (1.7-2.4) H 04/10/24 16:58 Total Bilirubin 1.1 mg/dl (0.2-1.0) H 04/10/24 16:58 AST 38 U/L (13-39) 04/10/24 16:58 ALT 26 U/L (7-52) 04/10/24 16:58 Alkaline Phosphatase 80 U/L (34-104) 04/10/24 16:58 Total Creatine Kinase 202 U/L (26-192) H 04/10/24 16:58 Troponin I High Sens 49.5 pg/ml (0-14) H D 04/10/24 19:05 Total Protein 7.8 gm/dl (6.0-8.3) 04/10/24 16:58 Albumin 4.6 gm/dl (3.4-5.0) 04/10/24 16:58 Globulin 3.2 gm/dl (2.5-4.0) 04/10/24 16:58 Albumin/Globulin Ratio 1.4 (0.9-2) 04/10/24 16:58 Procalcitonin 1.36 ng/ml (0-0.5) H 04/10/24 16:58 TSH 11.139 uIu/ml (0.300-4.500) H 04/10/24 16:58 Free T4 1.10 ng/dl (0.61-1.60) 04/10/24 16:58 Urine Color Yellow 04/10/24 17:49 Urine Appearance Cloudy (Clear) A 04/10/24 17:49 Urine pH 5.5 (4.5-7.5) 04/10/24 17:49 Ur Specific [place] 1.016 (1.000-1.030) 04/10/24 17:49 Urine Protein 1+ (Negative) H 04/10/24 17:49 Urine Glucose (UA) Negative (Negative) 04/10/24 17:49 Urine Ketones Negative (Negative) 04/10/24 17:49 Urine Blood Negative (Negative) 04/10/24 17:49 Urine Nitrite Negative (Negative) 04/10/24 17:49 Urine Bilirubin Negative (Negative) 04/10/24 17:49 Urine Urobilinogen Negative (Negative) 04/10/24 17:49 Ur Leukocyte Esterase 1+ (Negative) H 04/10/24 17:49 Urine WBC (Auto) 0-5 /hpf (0-5) 04/10/24 17:49 Urine RBC (Auto) 0-2 /hpf (0-2) 04/10/24 17:49 U Hyaline Cast (Auto) 11-20 /lpf (0-2) H 04/10/24 17:49 U Epithel Cells (Auto) 3-5 /hpf (0-2) H 04/10/24 17:49 Urine Bacteria (Auto) 1+ (None Seen) H 04/10/24 17:49 Stl C. diff Tox B Gene Negative Cdiff Gene (Neg) 04/10/24 20:32 Adenovirus (PCR) Not Detected (NotDetected) 04/10/24 17:49 B. pertussis DNA (PCR) Not Detected (NotDetected) 04/10/24 17:49 B.parapertussis DNA PCR Not Detected (NotDetected) 04/10/24 17:49 C. pneumoniae DNA (PCR) Not Detected (NotDetected) 04/10/24 17:49 Coronavirus OC43 (PCR) Not Detected (NotDetected) 04/10/24 17:49 Coronavirus HKU1 (PCR) Not Detected (NotDetected) 04/10/24 17:49 Coronavirus 229E (PCR) Not Detected (NotDetected) 04/10/24 17:49 SARS-CoV-2 (PCR) Not Detected (NotDetected) 04/10/24 17:49 Coronavirus NL63 (PCR) Not Detected (NotDetected) 04/10/24 17:49 Human Metapneumovir PCR Not Detected (NotDetected) 04/10/24 17:49 Influenza Type A (PCR) Not Detected (NotDetected) 04/10/24 17:49 Influenza Type B (PCR) Not Detected (NotDetected) 04/10/24 17:49 M. pneumoniae (PCR) Not Detected (NotDetected) 04/10/24 17:49 Parainfluenza 1 (PCR) Not Detected (NotDetected) 04/10/24 17:49 Parainfluenza 2 (PCR) Not Detected (NotDetected) 04/10/24 17:49 Parainfluenza 3 (PCR) Not Detected (NotDetected) 04/10/24 17:49 Parainfluenza 4 (PCR) Not Detected (NotDetected) 04/10/24 17:49 RSV (PCR) Not Detected (NotDetected) 04/10/24 17:49 Entero/Rhino (PCR) Not Detected (NotDetected) 04/10/24 17:49 Impressions Chest X-Ray 04/10/24 17:19 Exam(s): XR CXR 1 VIEW EXAM: XR Chest, 1 View CLINICAL HISTORY: Reason for exam: weakness. TECHNIQUE: Frontal view of the chest. COMPARISON: 04/10/2024 FINDINGS: Lungs: No consolidation. No overt edema. Pleural space: No pleural effusion. No pneumothorax. Heart: Bulky mitral annular calcifications. No cardiomegaly. IMPRESSION: No acute cardiopulmonary abnormality. Electronically signed by: Jose Lee MD 04/10/24 19:[address] 04/10/24 17:22 EXAM: CT Cervical Spine Without Intravenous Contrast INDICATION: Pain and weakness following fall 6 days ago. TECHNIQUE: Axial computed tomography images of the cervical spine without intravenous contrast. Sagittal and coronal reformatted images were created and reviewed. This CT exam was performed using one or more of the following dose reduction techniques: automated exposure control, adjustment of the mA and/or kV according to patient size, and/or use of iterative reconstruction technique. COMPARISON: 08/15/2018 FINDINGS: Limitations: None. Vertebrae: No significant change diffuse moderate facet arthrosis. Stable C5-C7 spondylosis at C5-C6 uncal spurring. There is stable grade 1 degenerative anterolisthesis C4 on C5 and C6 on C7. No fracture. Moderate to space narrowing C5-C6. Discs/spinal canal/neural foramina: See above. Soft tissues: No significant abnormality noted. Vasculature: There is atherosclerosis of the intracranial vertebral arteries and the cervical carotid arteries. Lung apices: No significant abnormality noted. IMPRESSION: Degenerative changes. No cervical fracture. ACT 112: Negative or not required by law. Electronically signed by Sandra Palacios 04-10-2024 6:[address] 04/10/24 17:22 EXAM: CT Head Without Intravenous Contrast INDICATION: Weakness and pain 6 days following fall. TECHNIQUE: Axial computed tomography images of the head/brain without intravenous contrast. Sagittal and/or coronal reformats are provided. Sagittal and coronal reformatted images were created and reviewed. This CT exam was performed using one or more of the following dose reduction techniques: automated exposure control, adjustment of the mA and/or kV according to patient size, and/or use of iterative reconstruction technique. COMPARISON: 08/15/2018 FINDINGS: Artifacts: Artifact from right anterior cavernous clip. Limitations: None. Brain and extra-axial spaces: There is age appropriate cortical atrophy and chronic ischemic periventricular white matter hypodensity. No acute infarct, hemorrhage or mass noted. Bones/joints: No acute changes. Soft tissues: See above. Vasculature: No acute abnormality noted. Sinuses: No layering fluid in the visualized portions of the paranasal sinuses. Mastoid air cells: No mastoid effusion. Orbits: No significant abnormality noted. IMPRESSION: Cerebral atrophy. No acute changes. ACT 112: Negative or not required by law. Electronically signed by Sandra Palacios 04-10-2024 6:39 PM Abdomen/Pelvis CT 04/10/24 18:04 EXAM: CT Abdomen and Pelvis Without Intravenous Contrast INDICATION: Pain and weakness following fall 6 days ago. TECHNIQUE: Assessment of intra-abdominal organ integrity is limited in the absence of IV contrast. COMPARISON: 08/15/2018 FINDINGS: Limitations: None. Lung bases: No abnormality noted. Pleural space: No visualized pleural effusion or pneumothorax. Heart: Increased cardiomegaly. Dense mitral annular calcification. There is moderate coronary calcification. No pericardial effusion. Mediastinum: No abnormality noted. ABDOMEN: Liver: Lack of intravenous contrast limits detection of some masses. No abnormality noted. Gallbladder and bile ducts: Cholecystectomy. No ductal dilation or stone noted. Pancreas: No pancreatic mass, calcification, inflammation or ductal dilation noted. Spleen: No significant abnormality noted. Adrenals: No significant abnormality noted. Kidneys and ureters: 3 mm nonobstructing right kidney stone. Left kidney appears normal. No hydronephrosis. Stomach and bowel: Moderate stool in the rectal vault. Extensive diverticulosis. Small amounts of prominent layering fluid noted in the colon and some small bowel loops. There is no inflammatory process noted. There is an acute minimally depressed fracture of the inferior endplate of T12 without retropulsion. No other fracture noted. PELVIS: Appendix: No findings to suggest acute appendicitis. Bladder: Appears normal for the degree of filling. No stones or inflammation. No large mass. Masses may not be detected in the absence of opacification. Reproductive: Hysterectomy. ABDOMEN and PELVIS: Intraperitoneal space: No free air. No significant fluid collection. Bones/joints: See above. Soft tissues: No significant abnormality noted. Vasculature: Atherosclerotic calcification of the aorta and branches. No aneurysm. Lymph nodes: No pathologically enlarged lymph nodes. IMPRESSION: 1. Study is performed without IV contrast which limits assessment. No traumatic change identified. Impression moderate rectal stool and extensive colonic diverticulosis. There may be minimal developing ileus. 2. Nonobstructing right kidney stone. ACT 112: Negative or not required by law. Electronically signed by Sandra Palacios 04-10-2024 6:[address] 04/10/24 18:04 EXAM: CT Chest Without Intravenous Contrast INDICATION: Pain and weakness following fall 6 days ago. TECHNIQUE: Assessment of aortic integrity limited in the absence of IV contrast. COMPARISON: No relevant prior studies available. FINDINGS: Limitations: None. Lungs and pleural spaces: There is airway thickening and mild atelectasis in the lower lobes. There is minimal mucus in the proximal trachea. No significant effusion. Heart: Cardiomegaly. Dense mitral annular calcification. There is moderate coronary calcification. No pericardial effusion. Mediastinum: There is diffuse mild distention of the esophagus. Thyroid: No abnormality noted. Bones/joints: Diffuse spondylosis of the thoracic segments noted. No thoracic fracture or subluxation. No stenosis. Soft tissues: No significant abnormality noted. Vasculature: Atherosclerotic aorta. No aneurysm. Lymph nodes: No enlarged lymph nodes. Kidneys and ureters: There is a 3 mm nonobstructing right kidney stone. IMPRESSION: 1. No traumatic change noted in the thorax. 2. See separately dictated lumbar spine CT report. ACT 112: Negative or not required by law. Electronically signed by Sandra Palacios 04-10-2024 6:[address] 04/10/24 18:04 EXAM: CT Lumbar Spine Without Intravenous Contrast INDICATION: Pain following fall 6 days ago. TECHNIQUE: Axial computed tomography images of the lumbar spine without intravenous contrast. Sagittal and coronal reformatted images were created and reviewed. This CT exam was performed using one or more of the following dose reduction techniques: automated exposure control, adjustment of the mA and/or kV according to patient size, and/or use of iterative reconstruction technique. COMPARISON: No relevant prior studies available. FINDINGS: Limitations: None. Vertebrae: There is an acute fracture of the inferior endplate of the T12 vertebra which contains small ribs. No retropulsion. Moderate generalized facet arthrosis and spondylosis. There is grade 1 degenerative anterolisthesis of L4 and L5. Sacrum/coccyx: No significant abnormality noted. No acute change noted. Discs/spinal canal/neural foramina: There is generalized disc bulge at L4-L5 with canal stenosis. There is mild right lateral nerve root abutment of the exited L5 root. Soft tissues: No significant abnormality noted. Kidneys and ureters: 3 mm nonobstructing right kidney stone. IMPRESSION: There is an acute mildly compressed fracture of the inferior endplate of T12 without retropulsion. No lumbar fracture noted. ACT 112: Negative or not required by law. Electronically signed by Sandra Palacios 04-10-2024 6:[address] 04/10/24 18:04 EXAM: CT Thoracic Spine Without Intravenous Contrast INDICATION: Pain and weakness following fall 6 days ago. TECHNIQUE: Axial computed tomography images of the thoracic spine without intravenous contrast. Sagittal and coronal reformatted images were created and reviewed. This CT exam was performed using one or more of the following dose reduction techniques: automated exposure control, adjustment of the mA and/or kV according to patient size, and/or use of iterative reconstruction technique. COMPARISON: No relevant prior studies available. FINDINGS: Limitations: None. Vertebrae: There is an acute fracture of the inferior endplate of T12 with mild depression. No retropulsion or subluxation. There is mild scoliotic curvature of the spine and accentuated kyphosis. There is diffuse facet arthrosis and moderate spondylosis. Discs/spinal canal/neural foramina: Multilevel moderate to space narrowing present. No stenosis. Other bones/joints: No abnormality noted. Soft tissues: No significant abnormality noted. Lungs and pleural spaces: Airway thickening and atelectasis noted in the lower lobes. Heart: No abnormality noted. Mediastinum: No significant abnormality noted. Liver: No significant abnormality noted. IMPRESSION: 1. Acute fracture inferior endplate of T12. 2. Airway thickening and atelectasis noted in the lower lobes. This could be acute or chronic. ACT 112: Negative or not required by law. Electronically signed by Sandra Palacios 04-10-2024 6:54 PM Diagnostic Findings EKG as per my interpretation :Rate 105, sinus tachycardia, LAD, LAFB, LBBB, LVH,
[2024-04-10 22:05] LABS: Adenovirus F 40/41 PCR Not Detected (NotDetected); Astrovirus PCR Not Detected (NotDetected); Campylobacter PCR Not Detected (NotDetected); Cryptosporidium PCR Not Detected (NotDetected); Cyclospora cayetanensis PCR Not Detected (NotDetected); Entamoeba histolytica PCR Not Detected (NotDetected); Enteroaggregative E.coli(EAEC) Not Detected (NotDetected); Enteropathogenic E.coli (EPEC) Not Detected (NotDetected); Enterotoxigenic E.coli (ETEC) Not Detected (NotDetected); Giardia lamblia PCR Not Detected (NotDetected); Norovirus GI/GII PCR Not Detected (NotDetected); Plesiomonas shigelloides PCR Not Detected (NotDetected); Rotavirus A PCR Not Detected (NotDetected); Salmonella PCR Not Detected (NotDetected); Sapovirus PCR Not Detected (NotDetected); Shiga-like Toxin E.coli (STEC) Not Detected (NotDetected); Shigella/Enteroinvasive E.coli Not Detected (NotDetected); Vibrio cholerae PCR Not Detected (NotDetected); Vibrio species PCR Not Detected (NotDetected); Yersinia enterocolitica PCR Not Detected (NotDetected)
[2024-04-10 22:47] LABS: Base Excess VBG -10.7 mEq/L; HCO3 VBG 14 mmol/L; Oxygen Saturation VBG 78.6 %; PCO2 VBG 29 mmHg (38-50); PO2 VBG 48 mmHg
[2024-04-10 23:07] LABS: BUN Creatinine Ratio 20.4 (10-20); Calcium 8.4 mg/dl (8.6-10.3); Creatinine Clr Calc Pharmacy 19.6 ml/min; Potassium 3.4 mmol/L (3.5-5.1)
[2024-04-10 23:47] LABS: Troponin I High Sensitivity 281.1 pg/ml (0-14)
[2024-04-10] MEDS ORDERED: GLUCOSE 40% GEL 15 GM TUBE PO PRN (23:51)
[2024-04-10] MEDS ORDERED: CARBOHYDRATES FOR HYPOGLYCEMIA PO PRN (23:51)
[2024-04-10] MEDS ORDERED: DEXTROSE 50% 50 ML SYRINGE IV PRN (23:51)
[2024-04-10] MEDS ORDERED: GLUCAGON FOR INJ 1 MG VIAL SQ PRN (23:51)
[2024-04-10] MEDS ORDERED: GLUCOSE 10 TAB/TUBE PO PRN (23:51)
[2024-04-11] MEDS: POTASSIUM CHLORIDE CRTAB 20 MEQ TABCR PO STA (00:24)
[2024-04-11] MEDS: NSS + 20MEQ KCL 20 MEQ/1,000 ML BAG IV STA (00:24)
[2024-04-11] MEDS: LIDOCAINE 5% 1 PATCH TD SCH (00:25)
[2024-04-11] MEDS: INSULIN ASPART PER UNIT CHARGE SC SCH ×2 (00:25→09:04)
[2024-04-11] MEDS: LANTUS PER UNIT CHARGE SQ STA (00:26)
[2024-04-11 02:07] LABS: Base Excess VBG -12.4 mEq/L; HCO3 VBG 14 mmol/L; Oxygen Saturation VBG 62.8 %; PCO2 VBG 31 mmHg (38-50); PO2 VBG 38 mmHg; pH VBG 7.25 (7.36-7.41)
[2024-04-11 02:25] LABS: Hematocrit (blood only) 37.3 % (37.0-47.0); Hemoglobin 12.4 g/dl (12.0-16.0); Mean Corpuscular Hemoglobin 31.7 pg (25.0-34.0); Mean Corpuscular Hgb Conc 33.2 g/dL (32.0-36.0); Mean Corpuscular Volume 95.4 fL (80.0-100.0); Mean Platelet Volume 10.5 fL (9.4-12.4); Platelet Count 256 K/uL (130-400); RDW Coefficient of Variation 12.8 % (11.5-14.5); RDW Standard Deviation 44.4 fL (36.4-46.3); Red Blood Count 3.91 M/uL (4.20-5.40); White Blood Count 21.17 K/ul (4.8-10.8)
[2024-04-11 02:28] LABS: BUN Creatinine Ratio 21.7 (10-20); Creatinine Clr Calc Pharmacy 19.4 ml/min
[2024-04-11] MEDS: NSS + 20MEQ KCL 20 MEQ/1,000 ML BAG IV ONE (02:29)
[2024-04-11 02:31] LABS: Basophils # (auto) 0.07 K/uL (0.00-0.20); Basophils % (auto) 0.3 %; Echinocytes 1+; Immature Granulocytes % (auto) 2.4 %; Lymphocytes # (auto) 0.51 K/uL (1.20-3.40); Lymphocytes % (auto) 2.4 %; Monocytes # (auto) 0.78 K/uL (0.11-0.59); Monocytes % (auto) 3.7 %; Neutrophils # (auto) 19.31 K/uL (1.40-6.50); Neutrophils % (auto) 91.2 %
[2024-04-11] MEDS ORDERED: metroNIDAZOLE 500 MG/100 ML BAG IV STA (02:31)
[2024-04-11 02:36] LABS: Troponin I High Sensitivity 326.8 pg/ml (0-14)
[2024-04-11] MEDS: PLASMA-LYTE A 1,000 ML IV ONE (02:39)
[2024-04-11] MEDS: SODIUM BICARB 8.4% INJ 50 MEQ/50 ML SYR IV STA (03:21)
[2024-04-11] MEDS: PIPERACILLIN/TAZOBACTAM 4.5 GM/100 ML BAG IV SCH (05:04)
[2024-04-11] MEDS: LEVOTHYROXINE SODIUM 25 MCG TABLET PO SCH (05:08)
[2024-04-11] MEDS: ALBUT/IPRATROP 3MG/0.5MG NEB 3 ML VIAL NEB STA (05:35)
--- NOTE | 2024-04-11 05:50 | XRay Report ---
EXAM: XR chest 1V portable CLINICAL HISTORY: SOB. TECHNIQUE: X-ray images of the chest were obtained in the AP portable projection. COMPARISON: The previous CT study dated 04/10/2024 was reviewed. FINDINGS: Pulmonary Parenchyma: No evidence of consolidation, collapse, or focal opacities. Bilateral lower lung zones atelectatic plates. No evidence of pleural effusion or pleural thickening. Heart and Mediastinum: Cardiomegaly. There is a longitudinal structure is seen passing along right aspect of the mediastinum adjacent to the aorta (possibly dilated esophagus as seen in previous CT) Bilateral prominent hilar vascular markings. No hilar or mediastinal lymphadenopathy. Bony Thorax: Bony thorax appears intact without fractures or deformities. IMPRESSION: 1. No acute cardiopulmonary abnormalities identified. 2. Bilateral lower lung zones atelectatic plates. 3. Cardiomegaly. 4. Bilateral prominent hilar vascular markings; possibly non specific versus secondary to congestion. Electronically signed by Ju Thorpe 04-11-2024 05:49 AM
[2024-04-11 05:55] LABS: Base Excess VBG -7.1 mEq/L; HCO3 VBG 18 mmol/L; Oxygen Saturation VBG < 60.0 %; PCO2 VBG 34 mmHg (38-50); PO2 VBG 28 mmHg; pH VBG 7.33 (7.36-7.41)
[2024-04-11] MEDS ORDERED: HEPARIN SOD 5,000 UNIT/0.5 ML VIAL SQ SCH (06:00)
[2024-04-11 06:24] LABS: BUN Creatinine Ratio 22.3 (10-20); Calcium 8.2 mg/dl (8.6-10.3); Potassium 4.8 mmol/L (3.5-5.1)
[2024-04-11 06:29] LABS: Troponin I High Sensitivity 295.9 pg/ml (0-14)
[2024-04-11] MEDS: ALBUMIN 25% 25 GM/100 ML VIAL IV SCH (06:34)
[2024-04-11 07:22] LABS: Estimated Average Glucose 183 mg/dl
[2024-04-11] MEDS: ATORVASTATIN 10 MG TAB PO SCH (08:14)
[2024-04-11] MEDS: METOPROLOL SUCC 25MG EXT REL TAB PO SCH (08:14)
[2024-04-11] MEDS: PANTOprazole 40 MG TAB PO SCH (08:14)
[2024-04-11] MEDS: amLODIPine BESYLATE 5 MG TAB PO SCH (08:14)
[2024-04-11] MEDS: PNEUMOCOCCAL VACCINE (PCV20) 20-VAL CONJ-DIP CRM/PF 0.5 ML SYR IM ONE (08:15)
[2024-04-11] MEDS: LANTUS PER UNIT CHARGE SQ SCH (09:05)
--- NOTE | 2024-04-11 09:58 | Orthopedic Consultation ---
Date of Service April 11, 2024 Assessment & Plan (1) T12 compression fracture: Plan Stable appearing T12 endplate fracture, patient can mobilize as tolerated with walker. TLSO brace ordered from orthotics as this will help with pain control, no lifting greater than 5 pounds, no bending, twisting turning. Brace when OOB for pain control. History of Present Illness Reason for Consultation: Back Pain Attending Physician: Mark Anthony Faust MD Patient is a pleasant 88 year old female admiotted for ambulatory dysfunction secondary to weakness and also DKA which is improved. This morning she is alert and answering questions eating in chair. She states she had a fall about 6 days ago and had considerable back pain which limited her ambulation, she has a walker here and states she is doing better with that. Isolated lower thoracic back pain, no neuro deficits or radicular pain. Allergies Allergy/AdvReac Type Severity Reaction Status Date / Time No Known Allergies Allergy Unverified 08/15/18 15:13 Home Medications Medication Instructions Recorded Confirmed Type amlodipine 10 mg tablet 10 mg PO DAILY 08/15/18 04/10/24 History atorvastatin 10 mg tablet 10 mg PO DAILY 04/10/24 04/10/24 History glipizide 2.5 mg tablet, extended 2.5 mg PO DAILY 04/10/24 04/10/24 History release 24 hr lisinopril 5 mg tablet 5 mg PO DAILY 04/10/24 04/10/24 History metoprolol succinate 25 mg 25 mg PO DAILY 04/10/24 04/10/24 History tablet,extended release 24 hr pantoprazole 40 mg tablet,delayed 40 mg PO DAILY 04/10/24 04/10/24 History release Past Med/Surg History Problem List (Updated 04/11/24 @ 01:31 by Matt Norris MD) Encephalopathy T12 compression fracture (Acute) Acute dehydration (Acute) Hyperglycemia due to type 2 diabetes mellitus (Acute) High anion gap metabolic acidosis (Acute) MATHIEU (acute kidney injury) (Acute) Acute UTI (Acute) Cerebral aneurysm Medical History History of gastroesophageal reflux (GERD) Hyperlipidemia Type 2 diabetes mellitus Hypertension Social History Smoking Status: Unknown if ever smoked Hx Alcohol Use: No Hx Substance Use: No Preferred Language: Indonesian Process Treater Required: No Beliefs That Will Affect Care: None Current Living Situation: Spouse Feels Safe at Home: Yes Safety Concerns: Feels Safe At This Time Assistive Devices: Cane, Denture - Upper and Walker Assistive Devices Comment: pt states she has a walker and cane at home Review of Systems All systems reviewed & are unremarkable except as noted in HPI & below. Physical Exam 5/5 strength hip flex, quad, tib ant, ehl, gs SILT LE no clonus lower thoracic tender to palpation Results & Data Results & Data Laboratory Results . Diagnostic Findings Thoracic CT interpreted personally T12 mild inferior endplate compression deformity, appears acute, no posterior cortex involvement, no spinous process gapping, no facet involvement. Accentuated kyphosis in upper T spine, moderate arthropathy throughout Lumbar CT interpreted personally, no evidence of lumbar fracture, moderate spondylosis, L4-5 degenerative spondylolisthesis PG Care Time/CCT Total # of Minutes Spent Total Time Spent with Patient: Total time spent is greater than 50% in coordination of care (as documented) at patient's floor/unit and/or counseling patient: [place] [address] IN/OBS CONSULT LVL 3,45M Patient Type New History Problem Focused Exam Problem Focused Medical Decision Making Straight Forward Diagnoses T12 compression fracture S22.080A Encounter type: initial encounter (1) T12 compression fracture Encounter type: initial encounter Qualified Code(s): S22.080A - Wedge compression fracture of T11-T12 vertebra, initial encounter for closed fracture
--- NOTE | 2024-04-11 11:11 | Hospitalist Progress Note ---
Date of Service April 11, 2024 Assessment & Plan (1) Encephalopathy: Plan: 88-year-old lady with PMH of chronic LBBB, HTN, HLD, SAH status post coil embolization, CKD [baseline creatinine 1.2], T2DM on oral meds, GERD, dementia, mood disorder was brought to the ED with complaint of confusion. Patient fell few days ago ORTHO RN, was complaining of back pain without radiation, currently having loose stool at the time of presentation and was getting weaker. She is being managed for the following: Complicated UTI Severe sepsis POA: Secondary to above. WBC, Pulse rate, lactic elevated at presentation. MATHIEU for CKD noted at presentation. Metabolic encephalopathy: Secondary to above in the setting of dementia. Generalized weakness: Secondary to above Patient presents with confusion and worsening weakness. Admitting UA suggestive of UTI, follow admitting blood culture and urine culture. Continue with Zosyn 04/10 (history E. coli, Enterococcus on review of prior urine CS). Patient more awake and alert, vitals more stable. Lactate trending down. PT/OT Follow cultures. MATHIEU over CKD III: Baseline creatinine of 1.2, admitting creatinine of 2.2. Status post IV fluid, creatinine improving. Avoid nephrotoxic, labs in AM. Uncontrolled hyperglycemia: History of T2DM on oral medications, A1c of 6.9 in December 2023. A1c of 8.0 this admission. Hold home glipizide, continue sliding scale insulin while in hospital. Repeat A1c in 3 months. Follow-up with diabetic clinic upon discharge for ongoing monitoring/management. Demand ischemia: Troponin initially up trended then flat trended around 300. Patient with no chest pain. EKG with sinus tachycardia. Likely secondary to acute illness. Continue telemetry monitoring. Traumatic T12 compression fracture: Patient currently denies pain, orthospine evaluated, patient appreciated the medicine. TLSO brace when OOB, PT/OT. no lifting greater than 5 pounds, no bending, twisting turning. Hypothyroidism: Patient with TSH of 11.1 at presentation. Initiated le vothyroxine, continue. Repeat thyroid function test in 6 weeks, follow-up with PCP office for ongoing monitoring/management. Other chronic medical conditions: Continue with/resume home meds as when able. chronic LBBB hypertension, BP fairly under control. hyperlipidemia, on statin Rx history SAH status post coil embolization DVT prophylaxis. SCDs re: history SAH PT OT eval once medically stable DNR/dni Patient's /POA, Mr. Ronaldo Mcleod [phone]. Text document was generated using [employer] voice recognition software. It may contain grammatical or spelling errors. Kindly contact undersigned for clarification of any documentation item in question. Admission and Anticipated Discharge Date Admission Date: April 10, 2024 Subjective Patient was seen and examined at bedside. Patient was sitting up in chair, on room air, resting comfortably. per RN, patient is doing better Mentation barriga, patient has multiple loose stools overnight and in the morning, eating okay. Patient reports some back pain. Physical Exam Physical Exam: GENERAL: Demented, comfortable, no respiratory distress SKIN: Normal color, warm HEENT: [place] palpebral conjunctivae, no ptosis, moist buccal mucosa NECK : Supple, no tenderness CHEST : CTA, no tenderness HEART : RRR, no obvious murmurs BACK : Minimal mid back tenderness. ABDOMEN: Some distention, nontender EXTREMITIES : No LE swelling/tenderness, no other conspicuous deformities noted NEUROLOGIC : Demented, no facial asymmetry, MMTS BUE 4/5. BLE 4/5, gait and stance not assessed Results & Data Results & Data Vital Signs (Past 12 Hours) Vital Signs Temp Pulse Pulse Pulse Resp BP Pulse Ox 04/11/24 09:04 36.8 C 90 20 129/76 92 04/11/24 05:35 77 18 93 04/11/24 03:48 36.6 C 82 18 122/66 92 04/11/24 00:00 36.6 C 82 16 121/71 92 04/10/24 23:48 81 04/10/24 22:54 85 18 107/66 95 O2 Del Method 04/11/24 09:04 Room Air 04/11/24 05:35 Room Air 04/11/24 03:48 Room Air 04/11/24 00:00 Room Air 04/10/24 23:48 04/10/24 22:54
[2024-04-11 12:08] LABS: BUN Creatinine Ratio 21.1 (10-20); Calcium 8.6 mg/dl (8.6-10.3); Creatinine Clr Calc Pharmacy 21.6 ml/min; Potassium 4.3 mmol/L (3.5-5.1)
--- OUTSIDE RECORDS SUMMARY | 2024-04-11 12:19 | External Medical Summary | Summary of Care ---
Author Name Unknown Organization [facility] Address [address] [facility] [place] [address] Phone [phone] Care Team Providers Care Gluer Machine Setup Operator Name Role Phone Zainab Herndon DO Primary Care Provider Reason for Visit * Reason Comments eRx-Medication Refill Encounter Details Date Type Department Care Team (Late st Contact Info) Description 03/18/2024 Refill Cardiology [address] [place] [id number] Ashli Davenport MD [address] [place] [phone] Essential hypertension with goal blood pressure less than 140/90 Allergies No known active allergiesdocumented as of this encounter (statuses as of 03/19/2024) Medications Rollator Ultra-Light 1 Rollator with hand brakes 1 Each 11/02/19 23 Active Lisinopril 5 MG Oral Tablet (Prinivil)Indicat ions: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 90 Tablet 3 04/29/19 24 Active glipiZIDE ER 2.5 MG Oral Tablet Extended Release 24 Hour (glipiZIDE XL)Indications:Ty pe 2 diabetes mellitus with stage 3b chronic kidney disease, without long-term current use of insulin (HCC) Take 1 Tablet by mouth in the morning. 30 minutes before a meal.. 90 Tablet 1 10/28/19 24 Active amLODIPine Besylate 10 MG Oral Tablet (Norvasc)Indicati ons:Essential hypertension with goal blood pressure less than 140/90 Take 1 Tablet by mouth in the morning. 90 Tablet 3 10/28/19 24 Active Pantoprazole Sodium 40 MG Oral Tablet Delayed Release (Protonix)Indicat ions:History of non-ST elevation myocardial infarction (NSTEMI) Take 1 Tablet by mouth at bedtime. 90 Tablet 3 12/23/19 24 Active Aspirin 81 MG Oral Tablet ChewableIndicatio ns:History of RI (myocardial infarction) Take 1 Tablet by mouth in the morning. with food.. 100 Tablet 3 01/02/20 24 Active Zoster Vac Recomb Adjuvanted 50 MCG/0.5ML Intramuscular Suspension Reconstituted (Shingrix) Inject 0.5 mL into a large muscle now and repeat dose in 60 to 180 days 1 Each 1 01/02/20 24 Active Atorvastatin Calcium 10 MG Oral Tablet (Lipitor) Take 1 Tablet by mouth in the morning. 90 Tablet 3 01/02/20 24 Active Metoprolol Succinate ER 25 MG Oral Tablet Extended Release 24 Hour (toPROL XL)Indications:Es sential hypertension with goal blood pressure less than 140/90 TAKE 1/2 TABLET EVERY MORNING 45 Tablet 03/19/20 24 Active Metoprolol Succinate ER 25 MG Oral Tablet Extended Release 24 Hour (toPROL XL)Indications:Es sential hypertension with goal blood pressure less than 140/90 TAKE 1/2 TABLET EVERY MORNING 45 Tablet 3 02/11/20 23 024 Discontinued documented as of this encounter (statuses as of 03/19/2024) Active Problems Problem Noted Date Diagnosed Date History of non-ST elevation myocardial infarctio n (NSTEMI) 04/30/2022 Chronic kidney disease, stage 3b 11/06/2020 Overview: Per CKD protocol Type 2 diabetes mellitus wit h stage 3b chronic kidney disease 10/10/2020 Overview: Per CKD protocol Benign hypertension with stage 3b chronic kidney disease 10/10/2020 Overview: Per CKD protocol Dementia without behavioral disturbance 03/28/20 Overview (01/28/2022): ICD-10 update of inactive term Frequent falls 04/08/2019 Microalbuminuria due to type 2 diabetes mellitus 01/06/2018 Obesity, Class I, BMI 30.0-34.9 (see actual BMI) 01/28/2017 H/O intracranial hemorrhage 01/28/2017 Essential hypertension with goal blood pressure less than 140/90 01/17/2016 Gastroesophageal reflux disease without esophagi tis 01/17/2016 Type 2 diabetes mellitus wit h hemoglobin A1c goal of less than 8.0% 09/15/2013 Overview (08/24/2015): ICD-10 update of inactive term Senile osteoporosis 09/05/2012 Abnormality of gait 03/13/2012 Vitamin D deficiency 03/13/2012 Hyperlipidemia with target LDL less than 70 02/26 Overview (08/28/2015): ICD-10 update of inactive term Cerebral aneurysm documented as of this encounter (statuses as of 03/19/2024) Resolved Problems Problem Noted Date Diagnosed Date Resolved Date NSTEMI (non-ST elevated myoc ardial infarction) 04/30/2022 04/30/2022 Type 2 diabetes mellitus wit h stage 3a chronic kidney disease 09/05/2020 10/12/2020 Overview: Per CKD protocol Benign hypertension with sta ge 3a chronic kidney disease 09/05/2020 10/12/2020 Overview: Per CKD protocol Diabetes mellitus with stage 3 chronic kidney disease 03/06/2020 09/07/2020 Overview: Per CKD protocol Leg edema, left 04/08/2019 03/28/2020 Incontinence of feces 04/08/20192019 Leg swelling 12/08/2018 03/28/2020 Benign hypertension with chr onic kidney disease, stage III 01/28/2017 09/07/2020 Overview: Per CKD protocol Type 2 diabetes mellitus wit h stage 3 chronic kidney disease, without long-term current use of insulin 01/28/2017 03/09/2020 Overview: Per CKD protocol HTN, goal below 140/90 06/16/201401/16 Urge incontinence 09/15/2013 01/28/2017 Constipation, slow transit 07/14/2013 0 09/15/2013 Balance problems 07/14/2013 01/28/2017 Kidney disease, chronic, sta ge III (GFR 30-59 ml/min) 06/21/2013 08/08/2017 Overview: Per CKD protocol #1 Persistent insomnia 03/15/2013 07/05/19 15 HTN, goal below 140/90 01/21/201301/21 HTN, goal below 140/80 01/21/201306/16 Type 2 diabetes mellitus wit h hemoglobin A1c goal of less than 7.0% 03/13/2012 09/15/2013 Overview (08/22/2015): ICD-10 update of inactive term Anemia 03/13/2012 01/09/2015 Memory deficits 03/13/2012 03/28/2020 [facility] 03/13/2012 012 Slow transit constipation 03/11/2012 SAH (subarachnoid hemorrhage) 02/03/2012 01/28/2017 Hypokalemia 02/03/2012 03/13/2012 GERD (gastroesophageal reflux disease) 07/17/2016 Major depressive disorder Overview (02/18/2017): ICD-10 update of inactive term Subarachnoid hemorrhage 02/26 Cerebral aneurysm 01/28/2017 HTN, goal below 130/80 01/21 Type II or unspecified type diabetes mellitus without mention of complication, not stated as uncontrolled 03/13/2012 documented as of this encounter (statuses as of 03/19/2024) Immunizations Name Administration Dates Next Due COVID-19 mRNA, LNP-s, No Pre serve, 2-Dose Series (Moderna) 08/15/2020,07/11/2020 COVID-19, MRNA-LNP, PF, 30 M CG/0.3 mL, 12 YRS AND ABOVE, IM (PFIZER-Comirnaty) 02/05/2024 Pneumococcal Conjugate Vacc, 13 Valent (Prevnar) 07/04/2014 Pneumococcal Polysaccharide PPV23 (Pneumovax) 09/28/2008 Season Influenza, Quad, PF, Adjuvanted, 65+ Yrs, IM (FLUAD) 02/07/2020 Seasonal Influenza Vac., MDV , IM, 0.5 mL (Fluzone) 12/27/2013,03/15/2013,01/27/2012 Seasonal Influenza, High Dos e, Trivalent, PF, IM (Fluzone HD) 02/05/2024,03/22/2019 Seasonal Influenza, PF, 6 M & above, IM , (FluLaval or Fluzone) 03/12/2019,12/31/2017,01/28/2017 Seasonal Influenza, Quadriva lent Hd (Fluzone Hd) 04/04/2021 Seasonal Influenza, Quadriva lent Hd, 65+ Yrs 03/19/2022 Seasonal Influenza, Quadriva lent, No Preserve, IM 01/17/2016,02/13/2015 documented as of this encounter Social History Tobacco Use Types Packs/Day Years Used Date Smoking Tobacco: Never Smokeless Tobacco: Never Alcohol Use Standard Drinks/Week Comments No 0 (1 standard drink = 0.6 oz pur e alcohol) PHQ-2 Answer Date Recorded PHQ Adult Total Score 3 01/20/2024 Hunger Vital Sign Answer Date Recorded Within the past 12 months, y ou worried that your food would run out before you got the money to buy more. Never true 01/20/20 24 Within the past 12 months, t he food you bought just didn't last and you didn't have money to get more. Never true 01/20/2024 Childcare Answer Date Recorded Do you feel overwhelmed with taking care of a child, family member or friend? No 01/20/2024 Does your family need help f inding childcare? (Household - for ages 0-17 years) Not on file 01/20/2024 Clothing Answer Date Recorded Have you been unable to get clothing when it was really needed? No 01/20/2024 Is your family able to get c lothes or diapers when needed? (Household - for ages 0-17 years) Not on file 01/20/2024 Personal Safety Answer Date Recorded Do you feel unsafe or have concerns for your saf ety? No 01/20/2024 Do you have concerns for you r family's safety? (Household - for ages 0-17 years) Not on file 01/20/2024 Utilities Answer Date Recorded Do you have trouble paying y our heating, water, or electric bill? No 01/20/2024 Is your family able to pay t he heat, water, or electric bill? (Household - for ages 0-17 years) Not on file 01/20/2024 Does your family have access to good internet? (Household - for ages 0-17 years) Not on file 01/20/2024 Employment Status Answer Date Recorded Are you unemployed or without regular income? No 01/20/2024 Does the household have a re lar source of income? (Household - for ages 0-17 years) Not on file 01/20/2024 Social Connections Answer Date Recorded How often do you feel lonely or isolated from th ose around you? Never 01/20/2024 Financial Resource Strain Answer Date R ecorded Do you have any trouble payi ng for your medications, or do you think you might in the future? No 01/20/2024 Does your family have troubl e paying for medicine? (Household - for ages 0-17 years) Not on file 01/20/2024 Transportation Needs Answer Date Record ed Do you have trouble getting a ride to medical visits or work? (Adult - for ages 18 years and over) Not on file 01/20/2024 Does your family have a hard time getting a ride to doctors visits? (Household - for ages 0-17 years) Not on file 01/20/2024 Has lack of transportation k ept you from medical appointments, meetings, work, or from getting things needed for daily living? Check all that apply. No 01/20/2024 Do you (or your family) have trouble finding or paying for a ride (transportation)? (Household - for ages 0-17 years) Not on file 01/20/2024 Housing Stability Answer Date Recorded Do you currently live in a s helter or have no steady place to sleep at night? No 01/20/2024 Do you think you are at risk of becoming homeless? (Adult - for ages 18 years and over) Not on file 01/20/2024 Does your family worry about paying for your home or becoming homeless? (Household - for ages 0-17 years) Not on file 0 01/20/2024 Are you homeless or worried that you might be in the future? No 01/20/2024 Are you (or your family) sherin eless or worried that you might be in the future? (Household - for ages 0-17 years) Not on file Food Insecurity Answer Date Recorded Do you need food for this week? No 01/20/2024 Are you able to get enough f ood for your family? (Household - for ages 0-17 years) Not on file 01/20/2024 Does your family need food t his week? (Household - for ages 0-17 years) Not on file 01/20/2024 Do you always have enough fo od for your family? (Household - for ages 0-17 years) Not on file 01/20/2024 Comments No Sex and Gender Information Value Date Recorded Sex Assigned at Female 01/20/2024 1:28 PM EDT Legal Sex Female 5:27 AM EST Gender Identity Female 01/20/2024 1:28 PM EDT Sexual Orientation Straight 01/20/2024 1: 28 PM EDT Occupation Industry Job Start Date Job End Date Retired Not on file Not on file Not on file documented as of this encounter Miscellaneous Notes * Telephone Encounter - Ashli Davenport MD - 03/19/2024 10:42 AM ESTSigned Prescriptions: Disp Refills Metoprolol Succinate ER 25 MG Oral Tablet *45 Tab*0 Sig: TAKE 1/2 TABLET EVERY MORNING Authorizing Provider: ASHLI DAVENPORT * Telephone Encounter - Marlee Chávez CPhT - 03/19/2024 10:25 AM ESTPending Prescriptions: Disp Refills Metoprolol Succinate ER 25 MG Oral Tablet *45 Tab*0 Sig: TAKE 1/2 TABLET EVERY MORNING * Telephone Encounter - Marlee Chávez CPhT - 03/19/2024 10:24 AM EST Received message from [facility] regarding patient needing an appointment. Call Placed, Unable to reach pt, as there was no answer and no VM available to leave message. Letter created and sent to patient. Thank you, Marlee Chávez CPhT Manager Of Disaster Recovery [facility] 03/19/2024,10:24 AM * Telephone Encounter - Robert Giang [facility] - 03/19/2024 9:47 AM ESTPending Prescriptions: Disp Refills Metoprolol Succinate ER 25 MG Oral Tablet *45 Tab*0 Sig: TAKE 1/2 TABLET EVERY MORNING * Telephone Encounter - Robert Ginag [facility] - 03/19/2024 9:43 AM EST Unable to authorize medication refills for pended medication(s) at this time. Part of the protocol criteria used for refill authorization was not satisfied. Per refill protocol patient should have office visit on file within past year. Please contact patient to schedule office visit with CARDIOLOGY. Last Visit: 08/06/2022 (in office), Visit date not found (telemedicine) Next Visit: Visit date not found After contacting patient, please forward request to Ashli Davenport MD. Thank you, Robert Giang, PharmD Clinical Pharmacist [facility] ([facility] [phone] 03/19/2024, 9:46 AM documented in this encounter Plan of Treatment Upcoming Encounters Date Type Department Care Team (Late st Contact Info) Description 08/20/2024 3:10 PM EDT Office Visit Family Medicine [address] [place] [phone] Zainab Herndon, [address] [place] [phone] 01/20/2025 2:30 PM EDT Nurse Only Ancillary [address] [place] [address] [place], Nurse Annual [address] [place] [address] Health Maintenance Due Date Last Done Comments DTap/Tdap Vaccines (1 - Tdap) 1954 Zoster Vaccines (1 of 2) 10/14/1987 DXA Scan 09/28/2022 09/28/2020, 02/28, 08/02/2015, Additional history exists HbA1c 07/01/2024 01/02/2024, 10/26, 11/01/2022, Additional history exists Albumin/Creatinine Ratio 01/01/2025 024, 04/30/2022, 04/04/2021, Additional history exists CKD HGB USE SMARTSET 82286 01/01/202501/01, 01/02/2024, 05/28/2022, Additional history exists CKD PHOS USE SMARTSET 48227 01/01/2025 09/0 09/2023, 04/30/2022, 04/10/2022, Additional history exists Diabetic Foot Exam 01/01/2025 01/02/2024, 0 11/01/2022, 10/03/2021, Additional history exists Adult Wellness Visit 01/19/2025 01/20/2024 Depression Screening 01/19/2025 01/20/2024 Diabetic Eye Exam 01/19/2025 01/20/2024, , 07/16/2018, Additional history exists Pneumococcal Vaccine: 65+ Years Completed 07/04/2014, 09/28/2008 *BISPHONATE OR OTHER ACCEPTABLE MEDICATION NEEDED FOR OSTEOPOROSIS (REFER TO SMARTSET #1146) Addressed 01/28/2017 (Refused) Overridden wi th the intention of not completing the topic VITAMIN D LEVEL ONCE IN A LIFETIME-USE SMARTSET# 84920 Completed 01/02/2024, 04/04/2021, 09/27/2020, Additional history exists COVID-19 Vaccine Completed 02/05/2024, , 10/03/2021, Additional history exists Influenza Vaccine (FLU shot) Completed 02/05/2024, 03/19/2022, 03/19/2022, Additional history exists HPV (Gardasil) Vaccine Aged Out No lo nger eligible based on patient's age to complete this topic Hepatitis B Vaccine Aged Out No longe r eligible based on patient's age to complete this topic MENINGOCOCCAL (MENACTRA/MENVEO) Aged Out No longer eligible based on patient's age to complete this topic documented as of this encounter Medical Devices Implanted Type Area Termite Exterminator Device Identifier Shelf Expiration Date Model / Serial / Lot Galaxy Xtrasoft 2.5 X 5 Coil Implanted:Qty: 1 on 02/03/2012 at OR [facility] N/A: Head [employer] 07/03/2013 / [id number] / [id number] documented as of this encounter Visit Diagnoses Diagnosis Essential hypertension with goal blood pressure less than 140/90 documented in this encounter Advance Directives * Full Code (Latest Code Status on File) Date Activated Date Inactivated Comments 02/03/2012 2:32 AM 02/19/2012 10:12 PM This order reflects the patients wishes and were consensually agreed upon. Question Answer Comments Discussion of Advance Directives occurred with: Not Discussed Does the patient have a Living Will? No Does the patient have Health Care Power of Attor eleanor? No Care Teams Gluer Machine Setup Operator Relationship Specialty Start Date End Date Zainab Herndon DO [address] [place] [address] [place] [phone] PCP - General Internal Medicine 9/6/17 documented as of this encounter
--- OUTSIDE RECORDS SUMMARY | 2024-04-11 12:19 | External Medical Summary | Summary of Care ---
Author Name Unknown Organization [facility] Address [address] [facility] [place] [address] Phone [phone] Care Team Providers Care Input Output Clerk Name Role Phone Zainab Herndon DO Primary Care Provider Reason for Visit * Reason Comments Adult Annual Wellness Visit, Subsequent Visit Encounter Details Date Type Department Care Team (Late Contact Info) Description 01/20/2024 1:00 PM EDT Nurse Only Ancillary [address] [place] [id number] [facility] [address] [place] [address] Adult Annual Wellness Visit, Subsequent Visit Allergies No known active allergiesdocumented as of this encounter (statuses as of 01/20/2024) Medications Medication Sig Dispensed Refills Start Date End Date Status Rollator Ultra-Light 1 Rollator with hand brakes 1 Each 11/01/2022 Active Metoprolol Succinate ER 25 MG Oral Tablet Extended Release 24 Hour (toPROL XL)Indications:Essent ial hypertension with goal blood pressure less than 140/90 TAKE 1/2 TABLET EVERY MORNING 45 Tablet 3 02/10/2023 Active Lisinopril 5 MG Oral Tablet (Prinivil)Indications :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 90 Tablet 3 04/29/2023 Active glipiZIDE ER 2.5 MG Oral Tablet Extended Release 24 Hour (glipiZIDE XL)Indications:Type 2 diabetes mellitus with stage 3b chronic kidney disease, without long-term current use of insulin (HCC) Take 1 Tablet by mouth in the morning. 30 minutes before a meal.. 90 Tablet 1 10/28/2023 Active amLODIPine Besylate 10 MG Oral Tablet (Norvasc)Indications: Essential hypertension with goal blood pressure less than 140/90 Take 1 Tablet by mouth in the morning. 90 Tablet 3 10/28/2023 Active Pantoprazole Sodium 40 MG Oral Tablet Delayed Release (Protonix)Indications :History of non-ST elevation myocardial infarction (NSTEMI) Take 1 Tablet by mouth at bedtime. 90 Tablet 3 12/23/2023 Active Aspirin 81 MG Oral Tablet ChewableIndications:H istory of [place] (myocardial infarction) Take 1 Tablet by mouth in the morning. with food.. 100 Tablet 3 01/02/2024 Active Zoster Vac Recomb Adjuvanted 50 MCG/0.5ML Intramuscular Suspension Reconstituted (Shingrix) Inject 0.5 mL into a large muscle now and repeat dose in 60 to 180 days 1 Each 1 01/02/2024 Active Atorvastatin Calcium 10 MG Oral Tablet (Lipitor) Take 1 Tablet by mouth in the morning. 90 Tablet 3 01/02/2024 Active documented as of this encounter (statuses as of 01/20/2024) Active Problems Problem Noted Date Diagnosed Date History of non-ST elevation myocardial infarctio n (NSTEMI) 04/30/2022 Chronic kidney disease, stage 3b 11/06/2020 Overview: Per CKD protocol Type 2 diabetes mellitus wit h stage 3b chronic kidney disease 10/10/2020 Overview: Per CKD protocol Benign hypertension with stage 3b chronic kidney disease 10/10/2020 Overview: Per CKD protocol Dementia without behavioral disturbance 03/28/20 Overview: ICD-10 update of inactive term Frequent falls 04/08/2019 Microalbuminuria due to type 2 diabetes mellitus 01/06/2018 Obesity, Class I, BMI 30.0-34.9 (see actual BMI) 01/28/2017 H/O intracranial hemorrhage 01/28/2017 Essential hypertension with goal blood pressure less than 140/90 01/17/2016 Gastroesophageal reflux disease without esophagi tis 01/17/2016 Type 2 diabetes mellitus wit h hemoglobin A1c goal of less than 8.0% 09/15/2013 Overview: ICD-10 update of inactive term Senile osteoporosis 09/05/2012 Abnormality of gait 03/13/2012 Vitamin D deficiency 03/13/2012 Hyperlipidemia with target LDL less than 70 02/26 Overview: ICD-10 update of inactive term Cerebral aneurysm documented as of this encounter (statuses as of 01/20/2024) Resolved Problems Problem Noted Date Diagnosed Date [...] goal of less than 7.0% 03/13/2012 09/15/2013 Overview: ICD-10 update of inactive term Anemia 03/13/2012 01/09/2015 Memory deficits 03/13/2012 03/28/2020 [facility] 03/13/2012 012 Slow transit constipation 03/11/2012 SAH (subarachnoid hemorrhage) 02/03/2012 01/28/2017 Hypokalemia 02/03/2012 03/13/2012 GERD (gastroesophageal reflux disease) 07/17/2016 Major depressive disorder Overview: ICD-10 update of inactive term Subarachnoid hemorrhage 02/26 Cerebral aneurysm 01/28/2017 HTN, goal below 130/80 01/21 Type II or unspecified type diabetes mellitus without mention of complication, not stated as uncontrolled 03/13/2012 documented as of this encounter (statuses as of 01/20/2024) Immunizations Name Administration Dates Next Due COVID-19 mRNA, LNP-s, No Pre serve, 2-Dose Series (Moderna) 08/15/2020,07/11/2020 Pneumococcal Conjugate Vacc, 13 Valent (Prevnar) 07/04/2014 Pneumococcal Polysaccharide PPV23 (Pneumovax) 09/28/2008 Season Influenza, Quad, PF, Adjuvanted, 65+ Yrs, IM (FLUAD) 02/07/2020 Seasonal Influenza, High Dos e, Trivalent, PF, IM (Fluzone HD) 03/22/2019 Seasonal Influenza, PF, 6 M & above, IM , (FluLaval or Fluzone) 03/12/2019,12/31/2017,01/28/2017 Seasonal Influenza, Quadriva lent Hd (Fluzone Hd) 04/04/2021 Seasonal Influenza, Quadriva lent Hd, 65+ Yrs 03/19/2022 Seasonal Influenza, Quadriva lent, No Preserve, IM 01/17/2016,02/13/2015 Seasonal Influenza, Trivalen t, (IIV3), with Preserv, (Fluzone) 12/27/2013,03/15/2013,01/27/2012 documented as of this encounter Social History [...] 01/20/2024 Does the household have a re gular source of income? (Household - for ages [...] ages 0-17 years) Not on file 01/20/2024 Sex and Gender Information Value Date Recorded Sex Assigned at Female 01/20/2024 1:28 PM EDT Gender Identity Female 01/20/2024 1:28 PM EDT Sexual Orientation Straight 01/20/2024 1: 28 PM EDT Job Start Date Occupation Industry Not on file Not on file Not on file documented as of this encounter Last Filed Vital Signs Vital Sign Reading Time Taken Comments Blood Pressure 104/60 01/20/2024 1:23 PM EDT Pulse 95 01/20/2024 1:23 PM EDT Temperature 36.3 C (97.3 F) 01/20/2024 1:23 PM ED T Respiratory Rate - - Oxygen Saturation 96% 01/20/2024 1:23 PM EDT Inhaled Oxygen Concentration - - Weight 74.4 kg (164 lb) 01/20/2024 1:23 PM EDT Height 152.4 cm (5') 01/20/2024 1:23 PM EDT Body Mass Index 32.03 01/20/2024 1:23 PM EDT documented in this encounter Patient Instructions * Patient Instructions* Alisia Lopez RN - 01/20/2024 1:19 PM EDT Images from the original note were not included. Patient Instructions - Fall Prevention (This education is for all patients over 65 regardless of symptoms) Remember to take your current medications as prescribed. In order to prevent falls, you are encouraged to: Exercise Utilize assistive/adaptive devices Avoid multifocal lenses when walking Avoid hazards in home Maintain a regular toileting schedule Any questions please contact our office. Preventing Falls in the Home (This education is for all patients over 65 regardless of symptoms) As you get older, falls are more likely. Thats because your reaction time slows. Your muscles and joints may also get stiffer, making them less flexible. Illness, medications, and vision changes can also affect your balance. A fall could leave you unable to live on your own. To make your home safer, follow these tips: Floors Put nonskid pads under area rugs Remove throw rugs Replace worn floor coverings Tack carpets firmly to each step on carpeted stairs. Put nonskid strips on the edges of uncarpeted stairs Keep floors and stairs free of clutter and cords Arrange furniture so there are clear pathways Clean up any spills right away Bathrooms Install grab bars in the tub or shower Apply nonskid strips or put a nonskid rubber mat in the tub or shower Sit on a bath chair to bathe Use bathmats with nonskid backing Lighting Keep a flashlight in each room Put a nightlight along the pathway between the bedroom and the bathroom [employer] Patient Education Copyright 2008 - 2010 [employer] except where otherwise noted Preventing Falls: Exercises to Improve Balance, Flexibility, Strength, and Staying Power (This education is for all patients over 65 regardless of symptoms) Certain types of exercises may help make you less likely to fall. Try the ones below. Or do other exercises that your healthcare provider suggests. Depending on your health, you may need to start slowly. Dont let that stop you. Even small amounts of exercise can help you. Be sure to talk to yourhealthcare provider before starting any exercise program. Improve Balance Many types of exercise can help improve balance. Richi chi and yoga are good examples. Heres another one to try. You can do it anytime and almost anywhere. Stand next to a counter or solid support. Push yourself up onto your tiptoes. Hold for 5 seconds. If you start to lose your balance, hold on to the counter. Rest and repeat 5 times. Work up to holding for 20 to 30 seconds, if you can. Increase Flexibility Being more flexible makes it easier for you to move around safely. Try exercises like the seated hamstring stretch. Sit in a chair and put one foot on a stool. Straighten your leg and reach with both hands down either side of your leg. Reach as far down your leg as you can. Hold for about 20 seconds. Go back to the starting position. Then repeat 5 times. Switch legs. Build Strength Resistance exercises help build strength. You can do them without equipment. Or you can use weights, elastic bands, or special machines. One such exercise is called the biceps curl. You can hold a 1 pound weight or even a can of soup. Do this exercise at least 3 times a week. Strive for everyday. Sit up straight in a chair. Keep your elbow close to your body and your wrist straight. Bend your arm, moving your hand up to your shoulder. Then slowly lower your arm. Repeat 5 times. Switch to the other arm. Build Your Staying Power Aerobic exercises make your heart and lungs stronger so you can keep moving longer. Walking and swimming are two of the best types of exercises you can do. Using a stationary bike is great, too. Find an aerobic exercise that you enjoy. Start slowly and build up. Even 5 minutes is helpful. Aimfor a goal of 30 minutes, at least 3 times a week. You dont have to do 30 minutes in one session. Break it up and walk a little throughout the day. More Helpful Tips Start easy. Slowly work up to doing more. Talk with your healthcare provider about the best exercises for you. Call senior centers or health clubs about exercise programs. If needed, have a family member watch you walk every so often to check your stability. Exercise with a friend. Choose an activity you both enjoy. Try exercises that you can do anytime, anywhere. Here are two examples. Have someone with you when you first try these: Practice walking by placing one foot right in front of the other. Stand up and sit down 10 times. Repeat this throughout the day. [employer] Patient Education Copyright 2009 - 2010 [employer] except where otherwise noted. Preventing Falls: Moving Safely Using a Cane or Walker (This education is for all patients over 65 regardless of symptoms) Keep the cane away from your feet so you dont trip. A walking aid, such as a cane or walker, can help you stay more independent and avoid falls. Remember to keep your walking aid within easy reach when youre in a chair or in bed. And learn how to use it safely so you dont injure yourself. Using a Cane If you have a stronger side, hold the cane on that side. Get your balance. Move the cane and your weaker leg forward. Support your weight on both the cane and your weaker side. Step with your stronger leg. Start again from step 1. If youre using a folding walker, be sure you know how to lock it open. Check that its locked open before each use. Using a Walker Roll the walker (or lift it, if youre using one without wheels) forward about 12 inches. Step forward with your weaker leg first. Use the walker to help keep your balance. Bring your other foot forward to the center of the walker. Start again from step 1. Helpful Tips Check with your healthcare provider about the right walking aid to use. Ask about a walker with a seat attached. Check the tips of your cane or walker to make sure they have nonskid covers. Move slowly from room to room. Dont godinez. Sit down to get dressed. Use a mi pack or backpack to keep your hands free. Get help for jobs that mean climbing, even on a stepstool. [employer] Patient Education Copyright 2008 - 2010 [employer] except where otherwise noted. Urinary Incontinence Plan of Care Documentation: (This education is for all patients over 65 regardless of symptoms) Current medications reconciled. Patient encouraged to: Practice kegal exercises Provide education materials Use the restroom every 2 hours throughout the day Limit caffeine, alcohol, spicy foods and acidic foods Keep a bladder diary Limit fluid intake 3-4 hours before bed Lose weight Prevent constipation Take fluid pills at a time when you can get to the bathroom quickly Control sugar better if diabetic Limit fluid intake to 60 oz. per day Wear support stockings (TEDs)if you have edema Alisia Lopez RN 01/20/2024 Kegel Exercises Kegel exercises dont require special clothing or equipment. Theyre easy to learn and simple to do. And if you do them right, no one can tell youre doing them, so they can be done almost anywhere. Your doctor, nurse, or physical therapist can answer any questions you have and help you get started. A Weak Pelvic Floor The pelvic floor muscles may weaken due to aging, and vaginal childbirth, injury, surgery, chronic cough, or lack of exercise. If the pelvic floor is weak, your bladder and other pelvic organs may sag out of place. The urethra may also open too easily and allow urine to leak out. Kegel exercises can help you strengthen your pelvic floor muscles so they can better support the pelvic organs and control urine flow. How Kegel Exercises Are Done Try each of the Kegel exercises described below. When youre doing them, try not to move your leg, buttock, or stomach muscles. While youre urinating, try to stop the flow of urine. Start and stop it as often as you can. Contract as if you were stopping your urine stream, but do it when youre not urinating. Tighten your rectum as if trying not to pass gas. Contract your anus, but dont move your buttocks. Helpful Hints Do your Kegels as often as you can. The more you do them, the faster youll feel the results. Pick an activity you do often as a reminder. For instance, do your Kegels every time you sit down. Tighten your pelvic floor before you sneeze, get up from a chair, cough, laugh, or lift. This protects your pelvic floor from injury and can help prevent urine leakage. Try to hold each Kegel for a slow count to five. You probably wont be able to hold them for thatlong at first, but keep practicing. It will get easier as your pelvic floor gets stronger. Eventually, special weights that you place in your vagina may be recommended to help make your Kegels even more effective. [employer] Patient Education Copyright 2009 - 2010 [employer] except where otherwise noted. Here are some helpful tips for your urinary incontinence: (This education is for all patients over 65 regardless of symptoms) Practice Kegel exercises Use the restroom every 2 hours throughout the day Limit caffeine, alcohol, spicy foods, and acidic foods Keep a bladder diary Limit fluid intake 3-4 hours before bed Lose weight Prevent constipation Take fluid pills at a time when can get to the bathroom quickly Control sugar better if diabetic Limit fluid intake to 60 oz. per day Any questions, please feel free to contact our office. Diabetic Retinopathy: Evaluating Your Eyes Diabetic retinopathy is a condition that happens when diabetes damages blood vessels in the rear ofthe eye. It can lead to vision loss. To help catch it early, have a complete dilated eye exam at least once a year. During the exam, the eye healthcare provider will review your medical history, examine your eyes, and check your vision. Women who are and have pre-existing type 1 or type 2 diabetes have an increased risk of retinopathy. Women with diabetes should have an eye exam before or in the first trimester. They should continue to be monitored every trimester and for 1 year after delivery, depending on the severity of the retinopathy. The retina is the light-sensitive part of the eye that allows you to see. High blood sugar can damage blood vessels of the retina and cause them to leak or bleed. This damage can lead to abnormal blood vessel growth. This condition is called diabetic retinopathy. You may not have symptoms early in the disease. Later, there may be floaters, blurred vision, or poor night vision. There may also be partial or complete vision loss. Early cases of diabetic retinopathy can be treated by carefully controlling blood sugar, blood pressure, and cholesterol. Surgery or laser treatments may help restore lost vision. Laser surgery can shrink abnormal blood vessels or close ones that are leaking. Medicines injected in the eye can help decrease swelling of the retina. Home care Take all medicines, including insulin or oral diabetic medicine, exactly as prescribed. Follow the diet advised by your healthcare provider. If you have high cholesterol, follow a low-fat, low-cholesterol diet. Monitor blood sugars as advised. Try to achieve your ideal weight. If you smoke, quit smoking. Tobacco use worsens the effect of diabetes on your blood vessels. If you have high blood pressure, consider buying an automatic blood pressure machine. These are available at most pharmacies. Use this to monitor your blood pressure. Report your blood pressure readings to your healthcare provider. Exercise regularly. Follow-up care Follow up with your healthcare provider, or as advised. You must have a complete eye exam at least once a year, more often if needed. Untreated diabetic retinopathy can lead to complete loss of vision. Occupational therapists can help you adapt to any vision loss you have, including learning techniques to safely administer insulin. When to seek medical advice Call your healthcare provider right away if any of these occur. Increasing blurriness or any sudden changes in your vision Sudden flashes of light inside your eye New floaters (small dots or strings that seem to be moving across your field of vision) Eye pain, redness, or discharge from your eyelid New dark spots appearing in your field of vision Halos around lights Dimness of vision Partial or complete loss of vision Women with diabetes should have a complete eye exam before becoming , or as soon as possible when they find out they are . Retinopathy sometimes worsens during . Your eye exam Your eye healthcare provider uses an eye chart and other tools to check your vision. Then he or sheexamines your eyes for signs of disease. You are given eye drops to widen (dilate) your pupils. Youmay have one or more of the following tests: Tonometry to measure fluid pressure inside the eye. Slit lamp exam to allow the healthcare provider to view the structures of your eye. Ultrasound to create an image of the eye using sound waves. Ultrasound may be used if blood is found in the clear gel that fills the eye (vitreous). Ocular coherence tomography (OCT) to create an image of the retina using light waves. This shows ifthere is fluid leaking into certain parts of the eye. It can also measure the thickness of the retina. Fluorescein angiography This test may be done to check the health of the inside lining of the eye (retina). It also checks the tiny blood vessels (capillaries) that carry blood to the retina. During the test: Photographs are taken of the retina. A dye is then injected into the bloodstream through the arm or hand. The dye travels to the capillaries in the eye. More photographs are taken of the retina. The dye causes the capillaries to stand out on the photographs. You may feel brief nausea during the procedure. For a few hours after the test, your skin, eyes, and urine may appear yellow. Talk with your healthcare provider for more information about this test. Date Last Reviewed: 09/27/[id number] [employer] [place] [address]. All rights reserved. This information is not intended as a substitute for professional medical care. Always follow your healthcare professional's instructions. Hi Ms. Mcleod, As your primary care physician, I know that regular visits with my patients who have several chronic conditions can go a long way in helping you stay healthy. Many times, the clinic team and I are in touch with you and/or other care team members between office visits to adjust medications, discuss any changes in your health, and review our care plan to make sure it is still meeting your needs. I am dedicated to helping you take a more active role in your overall care. It is important that there are resources available to you, so I created a personalized plan of care with a Health Calendar for you, which is included on the next page of this letter. Below is a list that summarizes your electronic health record: Health Maintenance Due: Health Maintenance Due Topic Date Due DTap/Tdap Vaccines (1 - Tdap) Never done Zoster Vaccines (1 of 2) Never done DXA Scan 09/28/2022 Diabetic Eye Exam 12/20/2022 Influenza Vaccine (FLU shot) (1) 12/28/2023 COVID-19 Vaccine ( season) 2023 Current Medication List: (as of Visit date not found (in office), Visit date not found (telemedicine) ) Current Outpatient Medications Medication Sig Dispense Refill Rollator Ultra-Light 1 Rollator with hand brakes 1 Each 0 Metoprolol Succinate ER 25 MG Oral Tablet Extended Release 24 Hour (toPROL XL) TAKE 1/2 TABLET EVERY MORNING 45 Tablet 3 Lisinopril 5 MG Oral Tablet (Prinivil) Take 1 Tablet by mouth in the morning. 90 Tablet 3 glipiZIDE ER 2.5 MG Oral Tablet Extended Release 24 Hour (glipiZIDE XL) Take 1 Tablet by mouth in the morning. 30 minutes before a meal.. 90 Tablet 1 amLODIPine Besylate 10 MG Oral Tablet (Norvasc) Take 1 Tablet by mouth in the morning. 90 Tablet 3 Pantoprazole Sodium 40 MG Oral Tablet Delayed Release (Protonix) Take 1 Tablet by mouth at bedtime. 90 Tablet 3 Aspirin 81 MG Oral Tablet Chewable Take 1 Tablet by mouth in the morning. with food.. 100 Tablet 3 Atorvastatin Calcium 10 MG Oral Tablet (Lipitor) Take 1 Tablet by mouth in the morning. 90 Tablet 3 Zoster Vac Recomb Adjuvanted 50 MCG/0.5ML Intramuscular Suspension Reconstituted (Shingrix) Inject 0.5 mL into a large muscle now and repeat dose in 60 to 180 days 1 Each 1 No current facility-administered medications for this visit. Current List of Allergies: (as of Visit date not found (in office), Visit date not found (telemedicine) ) Review of patient's allergies indicates: No Known Allergies Most Recent Lab Results: Results for orders placed or performed in visit on 01/02/24 ALBUMIN / CREATININE RATIO, URINE Result Value Ref Range Albumin, Random Urine 8.00 mg/dL Creatinine, Random Urine 127 mg/dL Albumin / Creatinine Ratio, Urine 63 (H) <30 mg/g Creat PHOSPHORUS Result Value Ref Range Phosphorus 3.9 2.5 - 4.8 mg/dL HEMOGLOBIN A1C Result Value Ref Range Hemoglobin A1C 6.9 (H) 4.0 - 5.6 % Estimated Average Glucose 151 (H) <126 mg/dL LIPID PANEL WITH DIRECT LDL IF TG IS HIGH Result Value Ref Range Triglycerides 355 (H) <=174 mg/dL Cholesterol 254 (H) <200 mg/dL HDL Cholesterol 51 >49 mg/dL Non-HDL Cholesterol 203 (H) <=159 mg/dL LDL Cholesterol 132 (H) <=129 mg/dL 25-HYDROXY VITAMIN D Result Value Ref Range 25-Hydroxy Vitamin D 29 >19 ng/mL ANEMIA CBC Result Value Ref Range WBC 5.45 4.00 - 10.80 K/uL RBC 3.68 3.85 - 5.15 M/uL HGB 12.2 12.0 - 15.3 g/dL HCT 38.8 36.0 - 45.2 % MCV 105.4 81.5 - 97.5 fL MCH 33.2 27.0 - 34.0 pg MCHC 31.4 32.0 - 36.0 g/dL RDW 14.4 11.5 - 15.5 % PLT 284 140 - 400 K/uL MPV 11.0 6.6 - 11.1 fL nRBCs 0 <=0 /100 WBCs DIFFERENTIAL, AUTOMATED Result Value Ref Range WBC 5.45 4.00 - 10.80 K/uL Neutrophils % 64.2 40.0 - 75.0 % Lymphocytes % 22.0 18.0 - 42.0 % Monocytes % 10.3 1.0 - 11.0 % Eosinophils % 2.2 0.0 - 6.0 % Basophils % 0.9 0.0 - 2.0 % Immature Granulocytes % 0.4 0.0 - 2.0 % Absolute Neutrophils 3.50 1.80 - 7.70 K/uL Absolute Lymphocytes 1.20 1.00 - 4.80 K/ul Absolute Monocytes 0.56 0.00 - 1.10 K/uL Absolute Eosinophils 0.12 0.00 - 0.70 K/uL Absolute Basophils 0.05 0.00 - 0.20 K/uL Absolute Immature Granulocytes 0.02 0.00 - 0.20 K/uL Sincerely, Zainab Herndon, 01/20/2024 [facility] Calendar (as of Visit date not found (in office), Visit date not found (telemedicine) ) Care needs Care needs Last completed Due next Diphtheria, tetanus & pertussis vaccines (1 - Tdap) --- Never done Zoster (Shingles) Vaccine (1 of 2) --- Never done Bone Density 09/28/2020 09/28/2022 Diabetic Eye Exam 12/20/2021 12/20/2022 Flu vaccine (recommended) (1) 03/19/2022 12/28/2023 COVID-19 Vaccine (2023- season) 2022 12/28/2023 A1C blood sugar test 01/02/2024 07/01/2024 Urine albumin/creatinine test 01/02/2024 01/01/2025 Diabetic Foot Exam 01/02/2024 01/01/2025 Adult Wellness Visit 01/20/2024 01/19/2025 As you look over the recommended services, be sure to check with your insurance company to determine what's covered. [employer] is a great tool that helps you review your medical record online, including test results, doctor notes and your health summary. You can also schedule appointments with me and other members of your care team, request prescription refills and ask for advice related to your medical conditions at [employer]. documented in this encounter Progress Notes * Alisia Lopez RN - 01/20/2024 1:19 PM EDT Images from the original note were not included. Fall Risk Plan of Care Documentation: - Current medications reconciled Patient encouraged to: - Exercise - Provide education materials for Core strengthening - Utilize assistive/adaptive devices - Provide education materials - Avoid multifocal lenses when walking - Avoid hazards in home - Provide education materials - Maintain a regular toileting schedule Alisia Lopez RN 01/20/2024 Urinary Incontinence Plan of Care Documentation: (This education is for all patients over 65 regardless of symptoms) Current medications reconciled. Patient encouraged to: Practice kegal exercises Provide education materials Use the restroom every 2 hours throughout the day Limit caffeine, alcohol, spicy foods and acidic foods Keep a bladder diary Limit fluid intake 3-4 hours before bed Lose weight Prevent constipation Take fluid pills at a time when you can get to the bathroom quickly Control sugar better if diabetic Limit fluid intake to 60 oz. per day Wear support stockings (TEDs)if you have edema Alisia Lopez RN 01/20/2024The importance of having a yearly diabetic eye exam has been discussed with patient. Orderand/or Referral placed along with patient instructions. Provider made aware. Alisia Lopez RN The importance of having a yearly diabetic eye exam has been discussed with patient. Order and/or Referral placed along with patient instructions. Provider made aware. Alisia Lopez RN Diabetic Retinopathy: Evaluating Your Eyes Diabetic retinopathy is a condition that happens when diabetes damages blood vessels in the rear ofthe eye. It can lead to vision loss. To help catch it early, have a complete dilated eye exam at least once a year. During the exam, the eye healthcare provider will review your medical history, examine your eyes, and check your vision. Women who are and have pre-existing type 1 or type 2 diabetes have an increased risk of retinopathy. Women with diabetes should have an eye exam before or in the first trimester. They should continue to be monitored every trimester and for 1 year after delivery, depending on the severity of the retinopathy. The retina is the light-sensitive part of the eye that allows you to see. High blood sugar can damage blood vessels of the retina and cause them to leak or bleed. This damage can lead to abnormal blood vessel growth. This condition is called diabetic retinopathy. You may not have symptoms early in the disease. Later, there may be floaters, blurred vision, or poor night vision. There may also be partial or complete vision loss. Early cases of diabetic retinopathy can be treated by carefully controlling blood sugar, blood pressure, and cholesterol. Surgery or laser treatments may help restore lost vision. Laser surgery can shrink abnormal blood vessels or close ones that are leaking. Medicines injected in the eye can help decrease swelling of the retina. Home care Take all medicines, including insulin or oral diabetic medicine, exactly as prescribed. Follow the diet advised by your healthcare provider. If you have high cholesterol, follow a low-fat, low-cholesterol diet. Monitor blood sugars as advised. Try to achieve your ideal weight. If you smoke, quit smoking. Tobacco use worsens the effect of diabetes on your blood vessels. If you have high blood pressure, consider buying an automatic blood pressure machine. These are available at most pharmacies. Use this to monitor your blood pressure. Report your blood pressure readings to your healthcare provider. Exercise regularly. Follow-up care Follow up with your healthcare provider, or as advised. You must have a complete eye exam at least once a year, more often if needed. Untreated diabetic retinopathy can lead to complete loss of vision. Occupational therapists can help you adapt to any vision loss you have, including learning techniques to safely administer insulin. When to seek medical advice Call your healthcare provider right away if any of these occur. Increasing blurriness or any sudden changes in your vision Sudden flashes of light inside your eye New floaters (small dots or strings that seem to be moving across your field of vision) Eye pain, redness, or discharge from your eyelid New dark spots appearing in your field of vision Halos around lights Dimness of vision Partial or complete loss of vision Women with diabetes should have a complete eye exam before becoming , or as soon as possible when they find out they are . Retinopathy sometimes worsens during . Your eye exam Your eye healthcare provider uses an eye chart and other tools to check your vision. Then he or sheexamines your eyes for signs of disease. You are given eye drops to widen (dilate) your pupils. Youmay have one or more of the following tests: Tonometry to measure fluid pressure inside the eye. Slit lamp exam to allow the healthcare provider to view the structures of your eye. Ultrasound to create an image of the eye using sound waves. Ultrasound may be used if blood is found in the clear gel that fills the eye (vitreous). Ocular coherence tomography (OCT) to create an image of the retina using light waves. This shows ifthere is fluid leaking into certain parts of the eye. It can also measure the thickness of the retina. Fluorescein angiography This test may be done to check the health of the inside lining of the eye (retina). It also checks the tiny blood vessels (capillaries) that carry blood to the retina. During the test: Photographs are taken of the retina. A dye is then injected into the bloodstream through the arm or hand. The dye travels to the capillaries in the eye. More photographs are taken of the retina. The dye causes the capillaries to stand out on the photographs. You may feel brief nausea during the procedure. For a few hours after the test, your skin, eyes, and urine may appear yellow. Talk with your healthcare provider for more information about this test. Date Last Reviewed: 09/27/[id number] [employer] [place] [address], [place] [address]. All rights reserved. This information is not intended as a substitute for professional medical care. Always follow your healthcare professional's instructions.AD8 Dementia Screening Interview Person answering questions: patient Remember, "Yes, a change" indicates that there has been a change in the last several years caused by cognitive (thinking and memory) problems 1. Problems with judgement (eg: problems making decisions, bad financial decisions, problems with thinking). No (0) 2. Less interest in hobbies/activities. No (0) 3. Repeats the same things over and over (questions, stories, or statements). Yes (1) 4. Trouble learning how to use a tool, appliance, or gadget (eg: VCR, computer, microwave, remote control). No (0) 5. Forgets correct month or year. Yes (1) 6. Trouble handling complicated financial affairs (eg: balancing checkbook, income taxes, paying bills). No (0) 7. Trouble remembering appointments. Yes (1) 8. Daily problems with thinking and/or memory. Yes (1) TOTAL AD8: 4 - AD8 Dementia Screening Score The final score is a sum of the number items marked "Yes, A Change". 0 - 1: Normal cognition; 2 or greater: Cognitive impairments is likely to be present - further testing required Adult Annual Wellness Visit: Sandra Mcleod is a 88 year old female who presents for an Adult Annual Wellness Visit. Depression Screening: Did the patient complete the screening questionnaire for Depression? Yes Is the patient's total score for Depression 15 or greater? No, no further intervention needed, unless requested by patient. Did the patient answer positively to the suicide question? No, no further intervention needed, unless requested by patient. In general, compared to other people your age, what would you say that your health is? Good Ht Readings from Last 1 Encounters: 01/20/24 1.524 m (5') Wt Readings from Last 1 Encounters: 01/20/24 74.4 kg (164 lb) Body Mass Index: BMI Greater than 30 Body mass index is 32.03 kg/m. BP Readings from Last 1 Encounters: 01/20/24 104/60 Medical/Surgical/Family History Reviewed: Yes Past Medical History: Diagnosis Date Abnormality of gait 03/13/2012 Anemia 03/13/2012 Balance problems 07/14/2013 Cerebral aneurysm Constipation, slow transit 07/14/2013 Depressive disorder, not elsewhere classified DM type 2, goal A1c below 7 03/13/2012 DM type 2, goal A1C below 8.0 09/15/2013 Essential hypertension with goal blood pressure less than 140/90 01/17/2016 Fall at prison 03/13/2012 Gastroesophageal reflux disease without esophagitis 01/17/2016 GERD (gastroesophageal reflux disease) HTN, goal below 130/80 HTN, goal below 140/80 01/21/2013 HTN, goal below 140/90 06/16/2014 Memory deficits 03/13/2012 Persistent insomnia 03/15/2013 SAH (subarachnoid hemorrhage) (HCC) 02/03/2012 Senile osteoporosis 09/05/2012 Subarachnoid hemorrhage (HCC) Type II or unspecified type diabetes mellitus without mention of complication, not stated as uncontrolled Urge incontinence 09/15/2013 Vitamin D deficiency 03/13/2012 Past Surgical History: Procedure Laterality Date ANGIO-VERTEBRAL/CEREBRAL 02/03/2012 ANGIOGRAPHY VERTEBRAL CEREBRAL OR INTRACRANIAL performed by Alan Hernandez MD at [facility] [address] CATHETER IN ARTERIES 06/30/2013 CATHETER PLACEMENT, BRACHIOCEPHALIC, THIRD ORDER BRANCH performed by Alan Hernandez MD at OR [facility] [place] REMOVE CATARACT, INSERT LENS PROSTH 09/27/13 left eye - Dr. Iqbal REMOVE CATARACT, INSERT LENS PROSTH 11/30/13 right eye REMOVE GALLBLADDER Dr Silvestre TOTAL ABD HYSTERECTOMY W/WO REMOVAL OF TUBE(S) 1970 took ovaries too, Friday in [place] Family History Problem Relation Name Age of Onset Alcohol and Other Disorders Associated Sister Lung Disorder Father Other (Other) Brother in MVA Has patient ever had cancer? No Social History Tobacco Use Smoking status: Never Smokeless tobacco: Never Substance Use Topics Alcohol use: No Vaping/E-Cigarette Use Vaping/E-Cigarette Substances Vaping/E-Cigarette Devices Tobacco/Alcohol screening completed today? Yes Hospital Care: Admissions (within the last year): Not Applicable ER within 30 days: No Does the patient have an Advance Directives/Living Will? No. Does the patient want information? Yes. Information given to patient Last Physical Exam: Last physical exam: 01.02.24 Does patient see primary provider regularly? Yes Does patient see other providers? Yes, Specialist Patient Care Team updated? Yes Review of patient's allergies indicates: No Known Allergies Immunization History Administered Date(s) Administered COVID-19 mRNA, LNP-s, No Preserve, 2-Dose Series (Moderna) 07/11/2020, 08/15/2020, 04/04/2021, 10/03/2021 Covid-19, Mrna, Lnp-s, Pf, Bivalent, 50 Mcg, IM, 12 yrs and above (Moderna) 03/19/2022 Pneumococcal Conjugate Vacc, 13 Valent (Prevnar) 07/04/2014 Pneumococcal Polysaccharide PPV23 (Pneumovax) 09/28/2008 Season Influenza, Quad, PF, Adjuvanted, 65+ Yrs, IM (FLUAD) 02/07/2020 Seasonal Influenza, High Dose, Trivalent, PF, IM (Fluzone HD) 03/22/2019 Seasonal Influenza, PF, 6 M & above, IM , (FluLaval or Fluzone) 01/28/2017, 12/31/2017, 03/12/2019 Seasonal Influenza, Quadrivalent Hd (Fluzone Hd) 04/04/2021 Seasonal Influenza, Quadrivalent Hd, 65+ Yrs 03/19/2022 Seasonal Influenza, Quadrivalent, No Preserve, IM 02/13/2015, 01/17/2016 Seasonal Influenza, Trivalent, (IIV3), with Preserv, (Fluzone) 01/27/2012, 03/15/2013, 12/27/2013 Current Outpatient Medications Medication Sig Dispense Refill Rollator Ultra-Light 1 Rollator with hand brakes 1 Each 0 Metoprolol Succinate ER 25 MG Oral Tablet Extended Release 24 Hour (toPROL XL) TAKE 1/2 TABLET EVERY MORNING 45 Tablet 3 Lisinopril 5 MG Oral Tablet (Prinivil) Take 1 Tablet by mouth in the morning. 90 Tablet 3 glipiZIDE ER 2.5 MG Oral Tablet Extended Release 24 Hour (glipiZIDE XL) Take 1 Tablet by mouth in the morning. 30 minutes before a meal.. 90 Tablet 1 amLODIPine Besylate 10 MG Oral Tablet (Norvasc) Take 1 Tablet by mouth in the morning. 90 Tablet 3 Pantoprazole Sodium 40 MG Oral Tablet Delayed Release (Protonix) Take 1 Tablet by mouth at bedtime.90 Tablet 3 Aspirin 81 MG Oral Tablet Chewable Take 1 Tablet by mouth in the morning. with food.. 100 Tablet 3 Atorvastatin Calcium 10 MG Oral Tablet (Lipitor) Take 1 Tablet by mouth in the morning. 90 Tablet 3 Zoster Vac Recomb Adjuvanted 50 MCG/0.5ML Intramuscular Suspension Reconstituted (Shingrix) Inject 0.5 mL into a large muscle now and repeat dose in 60 to 180 days 1 Each 1 No current facility-administered medications for this visit. 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 Yes Patient takes medications as prescribed? Yes Patient manages own medications: No Patient uses a pill box? Yes, refill(s) completed by judah rader Dental Exam: upper dentures only Eye Screening: Yes: Every yearly Are you having trouble with hearing? No Do you use an assistive device to help your hearing? No Exercise Screening: exercises 1-2 times per week, physical therapy Nutrition Assessment: Eats three meals a day coffee for breakfast. Pain Screening: Are you having any pain? No Sleep Screening Tool 'STOP': Do you snore? Yes Do you feel fatigued during the day? No Do you wake up feeling like you haven't slept? No Have you been told you stop breathing at night? No Do you gasp for air or choke while sleeping? No Have you been told you have Sleep Apnea? No Do you have high blood pressure or are on medication(s) to control high blood pressure? Yes SCORE: If you check YES to two or more questions, make a referral for Obstructive Sleep Apnea Declined corinna referral Patient and Caregiver Support System: Patient lives with a spouse Means of Transportation: Family transports Patient lives in Two Story - How many stairs: 13, railings Community Resources: Meals on Wheels Functional Status and ADL Skills: Has patient ever had an amputation? No Functional Assessment: 89- Able to carry on normal activity, minor symptoms of disease Ambulation: Patient ambulates with assistive device. Cane and Walker Dressing: Gets clothes and dresses without any assistance: Independent Able to move freely in chair or bed including turning over: Independent Repositioning (bed or chair): Not applicable Transfers: Independent Toileting: Goes to bathroom, uses toilet, arranges clothes and returns without any assistance: Independent Toileting: continent of bowel and incontinent of bladder Feeding: Self Bathing: Assist; Shower Chair, walk in shower and grab bars Requires minimal assistance with ADLs. Instrumental ADL's: Shopping: Moderate Assistance Housekeeping: Moderate Assistance Handling Finances: Moderate Assistance DME Vendor Name: Not Applicable Fall Risk Assessment: Can the patient demonstrate that she can stand from a sitting position? Yes Has the patient had a fall within the last 6 months? Yes Does the patient have a problem with her gait or balance? Yes Does the patient take 4 or more prescription medicines? Yes Does the patient use sedatives or narcotics? No Fall Risk Factors Present: History of falls within the past 6 months Yes Uses more than 4 medications Uses assistive devices Balance or gait disturbances Lower extremity weakness Visually impaired History of dementia Xqn-Xn-wqe-Go Test: Time began at 100. Patient stood from sitting position and walked approximately 10 feet, returned and sat down. Total time for jwb-oy-ewf-go test was 15 seconds. Jmf-Zy-rjg-Go Test completed? Yes Gender Specific Preventative Plan: Health Maintenance Topic Date Due DTap/Tdap Vaccines (1 - Tdap) Never done Zoster Vaccines (1 of 2) Never done DXA Scan 09/28/2022 Diabetic Eye Exam 12/20/2022 Influenza Vaccine (FLU shot) (1) 12/28/2023 COVID-19 Vaccine ( season) 2023 HbA1c 07/01/2024 Albumin/Creatinine Ratio 01/01/2025 Diabetic Foot Exam 01/01/2025 CKD HGB USE SMARTSET 31205 01/01/2025 CKD PHOS USE SMARTSET 75121 01/01/2025 Depression Screening 01/19/2025 Adult Wellness Visit 01/19/2025 VITAMIN D LEVEL ONCE IN A LIFETIME-USE SMARTSET# [id number] Completed Pneumococcal Vaccine: 65+ Years Completed *BISPHONATE OR OTHER ACCEPTABLE MEDICATION NEEDED FOR OSTEOPOROSIS (REFER TO SMARTSET #[id number]) Addressed Hepatitis B Vaccine Aged Out MENINGOCOCCAL (MENACTRA/MENVEO) Aged Out HPV (Gardasil) Vaccine Aged Out Follow Up/ Referrals/Handouts: Depression screening - completed Mini mental screening - 20, I will send a message to Zainab Herndon, DO to make her aware Functional assessment - doing fine, lives with 90yo spouse Falls Risk screening - patient has fallen recently and is doing physical therapy 2 x a wk. Exercise screening - encouraged to stay active Nutrition assessment -. Education Provided Pain screening - none Incontinence screening - patient does have UI, but declined a uro/stone derrickman and rigger referral Routine general medical examination at a health care facility (Primary) Risk and functional assessment DM type 2 nursing care encounter (HCC) - TELEMEDICINE DIABETIC EYE Advanced care planning/counseling discussion Advance Care Planning is important for all adults. Discussed the process of thinking and talking about future healthcare decisions.ACP form and pamphlet given to patient to take home to discuss with family. Once form is completed , patient to get a copy to us to scan into their chart. Abnormality of gait Patient is doing physical therapy 2 x a wk currently Benign hypertension with stage 3b chronic kidney disease ([facility]) - Med reconciliation completed and compliance discussed. - pt to continue present medications. Chronic kidney disease, stage 3b ([facility]) Component Latest Ref Rng 11/12/2023 BUN 6 - 20 mg/dL 19 CREATININE 0.5 - 1.0 mg/dL 1.2 (H) EGFR >=60 mL/min 44 (L) Legend: (H) High (L) Low Dementia without behavioral disturbance (HCC) MINI MENTAL SCORE 20 Essential hypertension with goal blood pressure less than 140/90 - Med reconciliation completed and compliance discussed. - pt to continue present medications. BP Readings from Last 3 Encounters: 01/20/24 104/60 01/02/24 146/78 11/12/23 148/70 Frequent falls Gastroesophageal reflux disease without esophagitis - Med reconciliation completed and compliance discussed. - pt to continue present medications. Hyperlipidemia with target LDL less than 70 - Med reconciliation completed and compliance discussed. - pt to continue present medications. Labs were recently abnormal and again I asked the Grand daughter to make sure she is still taking the Atorvastatin. Component Latest Ref Rng 01/02/2024 Triglycerides <=174 mg/dL 355 (H) Cholesterol <200 mg/dL 254 (H) HDL Cholesterol >49 mg/dL 51 Non-HDL Cholesterol <=159 mg/dL 203 (H) LDL Cholesterol <=129 mg/dL 132 (H) Legend: (H) High Senile osteoporosis - Med reconciliation completed and compliance discussed. - pt to continue present medications. Type 2 diabetes mellitus with hemoglobin A1c goal of less than 8.0% (HCC) Type 2 diabetes mellitus with stage 3b chronic kidney disease ([facility]) - Med reconciliation completed and compliance discussed. - pt to continue present medications. Hemoglobin AIC Results: Lab Results Component Value Date/Time HEMOGLOBIN A1C - [facility] 6.9 (H) 01/02/2024 09:44 AM HEMOGLOBIN A1C - [facility] 7.1 (H) 11/12/2023 09:29 AM HEMOGLOBIN A1C - [facility] 7.0 (H) 11/01/2022 04:02 PM HEMOGLOBIN A1C - [facility] 7.7 (H) 02/07/2020 12:04 PM HEMOGLOBIN A1C - [facility] 6.9 (H) 10/14/2018 02:09 PM HEMOGLOBIN A1C - [facility] 8.3 (H) 04/08/2018 02:46 PM Vitamin D deficiency - Med reconciliation completed and compliance discussed. - pt to continue present medications. Eye exam done today. Declined dexa Follow Up: Return in 1 year (on 01/19/2025) for 12 month Subsequent Adult Wellness Visit. | For: 12 month Subsequent Adult Wellness Visit | Check-out note: 12 month Subsequent Adult Wellness Visit Would patient like to schedule next AWV visit? Yes Alisia Lopez RN documented in this encounter Miscellaneous Notes * ACP (Advance Care Planning) - Alisia Lopez RN - 01/20/2024 3:37 PM EDT Images from the original note were not included. Patient-centered Communication 01/20/2024 The patient/surrogate voluntarily agreed to participate in advance care planning discussion. They were advised that this is a separate service which may incur out of pocket cost in the form of copayment and/or deductibles. Location: Clinic Individual(s) present for conversation: Patient and grand daughter prasanth Decisions Additional Comments Synopsis [employer] Most Recent Value Past ~10 years 01/20/2024 15:53 Additional Comments Additional Comments: Advance Care Planning is important for all adults. Discussed the process of thinking and talking about future healthcare decisions.ACP form and pamphlet given to patient to take home to discuss with family. Once form is completed , patient to get a copy to us to scan into their chart. 01/20/2024 Advance Care Planning is important for all adults. Discussed the process of thinking and talking about future healthcare decisions.ACP form and pamphlet given to patient to take home to discuss with family. Once form is completed , patient to get a copy to us to scan into their chart. Discerning What Matters Most to the Patient: Source: Content from [facility] Aligning Care With What Matters Most: No data to display Rationale for Decisions Source: Content from [facility] 5 minutes spent in direct [id number] discussion today, Alisia Lopez RN * Pt Handout (on AVS) - Alisia Lopez RN - 01/20/2024 1:57 PM EDT Images from the original note were not included. [id number] Progressive Relaxation Your body needs relaxation to reduce stress and calm the [id number] response. It helps to planfor about 20 minutes of relaxation every day when you can take time for yourself. Sit or lie comfortably, limiting distractions like phones. Put on some soft music or simply sit in silence. Then incorporate the progressive relaxation technique below. How to do progressive relaxation Progressive relaxation helps your whole body relax. To try this technique, follow these steps: 1. Find a quiet room. Sit in a comfortable chair or lie on your back. 2. Breathe in deeply to a slow count of 5. Feel your belly, chest, and back expand. Breathe out slowly to a count of 5. Do this for several minutes. 3. After a few minutes, breathe in deeply again, but this time tighten the muscles in your feet. Notice how it feels. Hold the tension for 3 seconds. 4. Breathe out while relaxing the tightened muscles. Notice how relaxed you feel. 5. Repeat steps 3 and 4 with another muscle group. You can move from your feet, calves, and thighs to your stomach, arms, and hands. Remember the 4 A?s Avoid a stressor. For example, if someone is smoking when you?re trying to quit, leave the room. Alter how you deal with a stressor. For example, let the [employer] machine fish bait picker if a constantly ringing phone is a stressor. Accept a stressor you can?t change, like a job loss, by knowing that your feelings are normal. Adapt to some stressors. For example, when starting a new exercise program, instead of focusing on how hard it will be, think how good you will feel. Last Reviewed Date: 07/27/202119993336-7281 [employer]. All rights reserved. This information is not intended as a substitute for professional medical care. Always follow your healthcare professional's instructions. * Pt Handout (on AVS) - Alisia Lopez RN - 01/20/2024 1:56 PM EDT [id number] Overview of Sleep Disorders Facts about sleep disorders Loss of sleep can cause problems at home or on the job. It can lead to serious or even fatal accidents. The National Sleep Foundation notes that: Between 50 and 70 million [place] adults have some type of sleep or wakefulness disorder. Sleep problems often get worse as you get older. Poor sleep cost billions of dollars a year. This is from healthcare expenses and lost productivity. Drowsy drivers cause about 40,000 vehicle crashes in the [place] every year. This includes more than 1,500 deaths. Types of sleep disorders There are many types of sleep disorders. They can affect health and quality of life. The disorders include: Insomnia Sleep apnea Sleepwalking Bedwetting Nightmares Night terror Restless legs syndrome Snoring Narcolepsy Why is sleep important? Sleep is not just resting or taking a break from busy routines. Sleep is a quintanilla part of good health.Getting enough sleep may help the body recover from illness and injury. Not getting enough sleep over a period of time is linked to health problems. They include obesity, diabetes, and heart disease. The mental benefits of sleep are also important. Sleep problems can make daily life feel more stressful and less productive. Some people with chronic trouble sleeping (insomnia) are more likely to have mental health problems. Sleep problems are also tied to depression. In a research survey, people who had trouble getting enough sleep had trouble doing tasks that use memory and learning. How much sleep do you need? Sleep needs vary from person to person. But most healthy adults need about 7 to 9 hours of sleep a night. You may need more or better sleep if you: Have trouble staying alert during quiet activities Are irritable with coworkers, family, or friends Have trouble focusing or remembering facts Have trouble falling asleep or staying asleep, or wake up early and can't get back to sleep Getting treatment for a sleep disorder For those who suffer from sleep disorders, help is available from many sources. Sleep problems can be treated or managed by different kinds of healthcare providers. You may be treated by a healthcareprovider who specializes in any of these: Internal medicine Gerontology Pediatrics Family practice Pulmonary medicine Neurology Psychiatry Otolaryngology You can also find a healthcare provider who is certified in sleep medicine by the [place] [employer]. Talk with your healthcare provider about finding a sleep disorder program. Last Reviewed Date: 04/28/202219990872-9248 [employer]. All rights reserved. This information is not intended as a substitute for professional medical care. Always follow your healthcare professional's instructions. * Pt Handout (on AVS) - Alisia Lopez RN - 01/20/2024 1:56 PM EDT [id number] Controlling Your Cholesterol Cholesterol is a waxy substance. Your body needs it to stay healthy. But too much can cause problems. It travels in your blood through the blood vessels. If you have a lot of cholesterol in your blood, it can build up along the wheeler of the blood vessels. This makes the vessels narrower and decreases blood flow. You are then at greater risk of a heart attack or a stroke. Good and bad cholesterol Cholesterol is a type of lipid. Lipids are fats. Blood is mostly water. Fat and water don't mix. Solipids are carried in the blood inside a protein shell. These are called lipoproteins. There are 2 main kinds of lipoproteins: LDL (low-density lipoprotein). This is known as bad cholesterol. It mainly carries cholesterol to body cells. Excess LDL will build up on artery wheeler. This raises your risk for heart disease and stroke. HDL (high-density lipoprotein). This is known as good cholesterol. This protein shell collects excess cholesterol that LDL has left behind on blood vessel wheeler. That's why high levels of HDL can lower your risk of heart disease and stroke. Controlling cholesterol levels Total cholesterol includes LDL and HDL cholesterol, as well as other fats in the bloodstream. If your total cholesterol is high, follow the steps below to help lower your total cholesterol level: Eat less unhealthy fat Cut back on saturated fats and trans fats. A diet that?s high in these fats raises your bad cholesterol. It's not enough to just cut back on foods that have cholesterol. Trans fats are also calledpartially hydrogenated oil. Choose lean cuts of meat and low-fat dairy. Use oils instead of solid fats. Limit baked goods, processed meats, and fried foods. Eat about 2 servings of fish each week. A serving size is about 3.5 ounces. Good choices includesalmon, mackey, tuna, sardines, or mackerel. The fish should not be fried. Most fish contain omega-3 fatty acids. These help lower total blood cholesterol. [place]-3 fatty acids lowers triglyceride levels, another form of fat in the blood. If you are , planning to be , or are , talk with your healthcare provider for advice. Ask about the best fish choices and how much is safe to eat. Eat more whole grains. Eat soluble fiber, such as oat bran. These lower overall cholesterol. Be active Moderate physical activity has been shown to raise high-density lipoprotein (HDL) cholesterol, the good cholesterol. That's one of the many reasons regular physical activity can help keep you healthy. If you haven't been exercising regularly, start slowly. Check with your healthcare provider to make sure the exercise plan is right for you. Choose a physical activity you enjoy. Walk, swim, or ride a bike. These are all good ways to be active. Start at a level where you feel comfortable. Increase your time and pace a little each week. Work up to 30 to 40 minutes of moderate to high intensity physical activity at least 3 to 4 daysper week. Remember, some activity is better than none. Quit smoking Quitting smoking can improve your lipid levels. It also lowers your risk for heart disease and stroke. Manage your weight If you are overweight, your healthcare provider will help you to lose weight. They will help you lower your BMI (body mass index) to a normal or near-normal level. Making diet changes and increasing physical activity can help. Take medicine as directed Many people need medicine to help their cholesterol levels. Medicine to treat high cholesterol is effective and safe. But keep in mind that medicine does not take the place of exercise and eating healthy foods. All of these things work together. Your healthcare provider can tell you if you may needa medicine to help lower your cholesterol. Last Reviewed Date: 07/28/202319996425-7628 [employer]. All rights reserved. This information is not intended as a substitute for professional medical care. Always follow your healthcare professional's instructions. * Pt Handout (on AVS) - Alisia Lopez RN - 01/20/2024 1:56 PM EDT Images from the original note were not included. [id number] 5 Steps for Eating Healthier Changing the way you eat can improve your health. It can lower your cholesterol and blood pressure,and help you stay at a healthy weight. Your diet doesn?t have to be bland and boring to be healthy.Just watch your calories and follow these steps: Step 1. Eat fewer unhealthy fats Choose more fish and lean meats instead of fatty cuts of meat. Skip butter and lard, and use less margarine. Replace these with healthier fats, such as olive, canola, or avocado oils. Pass on foods that have palm, coconut, or partially hydrogenated oils. Eat fewer high-fat dairy foods like cheese, ice cream, and whole milk. Get a heart-healthy cookbook and try some new recipes. Step 2. Go light on salt Keep the saltshaker off the table. Limit high-salt ingredients, such as soy sauce, bouillon, and garlic salt. Instead of adding salt when cooking, season your food with herbs, spices, and other flavorings. Try lemon, garlic, onion, vinegar, or salt-free herb seasonings. Limit convenience foods, such as boxed or canned foods and restaurant food. Read food labels and choose lower-sodium options. Buy fresh, frozen, or canned vegetables that don't have added salt. Step 3. Limit sugar Pause before you add sugars to pancakes, cereal, coffee, or tea. This includes white and brown table sugar, syrup, honey, and molasses. Cut your usual amount by half. Swap out sugar-filled soda and other drinks. Buy sugar-free or low-calorie beverages. Remember, water is always the best choice. Try adding lemon juice to water for extra flavor. Read labels and choose foods with less added sugar. Keep in mind that dairy foods and foods withfruit will have some natural sugar. Cut the sugar in recipes by 1/3 to 1/2. Boost the flavor with extracts like almond, vanilla, or orange. Or add spices such as cinnamon or nutmeg. Step 4. Eat more fiber Eat fresh fruits and vegetables every day. Boost your diet with whole grains. Go for oats, whole-grain rice, and bran. Add beans and lentils to your meals. Drink more water to match your fiber increase to help prevent constipation. Step 5. Pay attention to serving sizes Remember that a serving size is a standard measurement. It will let you track the amount of fat,calories, and other nutrients in the food you eat. Read the Nutrition Facts label on packaged foods to learn their serving sizes. Use serving sizes to assess how much food you put on your plate. Pay attention to your portions.How many servings are you eating? Keep in mind that your needs may change if you?re more active or less active, or if you have other factors that change your calorie needs. Use your hand to help you measure serving sizes. For example: o 1 teaspoon: This is about the size of the first joint of your thumb. o 1 tablespoon: This is about the size of the first 2 joints of your thumb. o 1 ounce: This is about what you can fit in your cupped hand. o 2 to 3 ounces: This is about the size of the palm of your hand. o cup: This is also about what you can fit in your cupped hand. o 1 cup: This is about the size of your fist. Last Reviewed Date: 03/28/202219998462-6721 [employer]. All rights reserved. This information is not intended as a substitute for professional medical care. Always follow your healthcare professional's instructions. documented in this encounter Plan of Treatment Upcoming Encounters Date Type Department Care Team (Late st Contact Info) Description 02/05/2024 3:00 PM EDT Nurse Only Ancillary [address] [place] [address] [place], Nurse [address] [place] [address] 02/05/2024 3:15 PM EDT [address] [address] [phone] Jm Burkett MD [address] [place] [id number] 08/20/2024 3:10 PM EDT Office [address] [facility] [address] [phone] Zainab Herndon, [address] [place] [address] 01/20/2025 2:30 PM EDT Nurse Only Ancillary [address] [place] [address] [place], Nurse [address] [place] [id number] Health Maintenance Due Date Last Done Comments DTap/Tdap Vaccines (1 - Tdap) 1954 Zoster Vaccines (1 of 2) 10/14/1987 DXA Scan 09/28/2022 09/28/2020, 02/28, 08/02/2015, Additional history exists COVID-19 Vaccine ( season) 2023 03/19/2022, 10/03/2021, 04/04/2021, Additional history exists Influenza Vaccine (FLU shot) (#1) 2023 03/19/2022, 03/19/2022, 04/04/2021, Additional history exists HbA1c 07/01/2024 01/02/2024, 10/26, 11/01/2022, Additional history exists Albumin/Creatinine Ratio 01/01/2025 024, 04/30/2022, 04/04/2021, Additional history exists CKD HGB USE SMARTSET 15606 01/01/202501/01, 01/02/2024, 05/28/2022, Additional history exists CKD PHOS USE SMARTSET [id number] 01/01/2025 09/0 09/2023, 04/30/2022, 04/10/2022, Additional history [...] D LEVEL ONCE IN A LIFETIME-USE SMARTSET# [id number] Completed 01/02/2024, 04/04/2021, 09/27/2020, Additional history exists HPV (Gardasil) Vaccine Aged Out No lo nger eligible based on patient's age to complete this topic Hepatitis B Vaccine Aged Out No longe r eligible based on patient's age to complete this topic MENINGOCOCCAL (MENACTRA/MENVEO) Aged Out No longer eligible based on patient's age to complete this topic documented as of this encounter Medical Devices Implanted Type Area Replanting Machine Crewman Device Identifier Shelf Expiration Date Model / Serial / Lot Galaxy Xtrasoft 2.5 X 5 Coil Implanted:Qty: 1 on 02/03/2012 at [facility] [place] N/A: Head [employer] XI 07/03/2013 / [id number] / [id number] documented as of this encounter Procedures Procedure Name Priority Date/Time Associated Diagnosis Comments TELEMEDICINE DIABETIC EYE Routine 01/20/2024 DM type 2 nursing care encounter (HCC) documented in this encounter Results * TELEMEDICINE DIABETIC EYE (01/20/2024) 01/20/2024 Zainab Herndon DO DIGITAL PHOTOGRAPHY documented in this encounter Visit Diagnoses Diagnosis Routine general medical examination at a health care facility- Primary Risk and functional assessment Screening for unspecified condition DM type 2 nursing care encounter (HCC) Type II or unspecified type diabetes mellitus without mention of complication, not stated as uncontrolled Advanced care planning/counseling discussion Other specified counseling Abnormality of gait 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) Chronic kidney disease, stage 3b (HCC) Dementia without behavioral disturbance (HCC) Dementia, unspecified, without behavioral disturbance Essential hypertension with goal blood pressure less than 140/90 Frequent falls Personal history of fall Gastroesophageal reflux disease without esophagitis Esophageal reflux Hyperlipidemia with target LDL less than 70 Other and unspecified hyperlipidemia Senile osteoporosis Type 2 diabetes mellitus with hemoglobin A1c goal of less than 8.0% ([facility]) Vitamin D deficiency Unspecified vitamin D deficiency documented in this encounter Advance Directives * [...] Power of Attor eleanor? No Care Teams Input Output Clerk Relationship Specialty Start Date End Date Zainab Herndon DO [address] [place] [address] [place] [address] PCP - General Internal Medicine 01/01/17 documented as of this encounter
--- OUTSIDE RECORDS SUMMARY | 2024-04-11 12:19 | External Medical Summary | Summary of Care ---
Author Name Unknown Organization [facility] Address [address] [place] [address] Phone [phone] Care Team Providers Care Instrument Room Technician Name Role Phone Zainab Herndon DO Primary Care Provider [phone] Reason for Referral * Evaluate & Treat - Unlimited Visits (Within 10 days (routine)) - Authorized Specialty Diagnoses / Procedures Referred By Leandro dutta Referred To Contact HOME CARE / Home Care Diagnoses Ambulatory dysfunction Zainab Herndon DO [address] [place] [address] [place] [address] Referral ID Status Reason Start Date Expiration Date Visits Requested Visits Authorized [id number] Authorized Specialty Services Required 01/06/2024 999 999 Question Answer Referral Priority Within 10 days (routine) Where should this appointment be scheduled? Gloria Comments Documentation of Vcpr-di-Vgnw Encounter Addendum Patient Name: Sandra Mcleod I certify that this patient is under my care and that I, or a nurse practitioner or physician's emergency room physician assistant working with me, had a wpgj-vt-sbdk encounter that meets the physician gfru-sn-culv encounter requirements with this patient on: 01/02/24 The encounter with the patient was in whole, or in part, for the following medical condition, which is the primary reason for home health care (List medical condition): Gait dysfunction I certify that, based on my findings, the following services are medically necessary home health services: Physical Therapy To provide the following care/treatments: (All hospitalists not following the patient after discharge should complete this section): Improve ambulatory status Primary Care Physician to follow home care plan of care after discharge: Zainab Herndon DO My clinical findings support the need for the above services because: limited mobility following recent illnesses Further, I certify that my clinical findings support that this patient is homebound (i.e. Absences from home require considerable and taxing effort and are for medical reasons or yazdanism services or infrequently or of short duration when for other reason) because: Requires assistance and assistive device to leave the home. Physician Signature: Date of Signature: Physician Printed Name: Zainab Herndon DO Reason for Visit * Reason Onset Date Comments Home Health 01/06/2024 Encounter Details Date Type Department Care Team (Late st Contact Info) Description 01/06/2024 Telephone Family Medicine [address] [phone] Zainab Herndon DO [address] [place] [address] [place] [address] Home Health Allergies No known active allergiesdocumented as of this encounter (statuses as of 01/14/2024) Medications Medication Sig Dispensed Refills Start Date [...] 81 MG Oral Tablet ChewableIndications:H istory of [place] (myocardial infarction) Take 1 Tablet by mouth [...] as of this encounter (statuses as of 01/14/2024) Active Problems Problem Noted Date Diagnosed Date History of non-ST elevation myocardial infarctio n (NSTEMI) 04/30/2022 Chronic kidney disease, stage 3b 11/06/2020 Overview: Per CKD protocol Type 2 diabetes mellitus wit h stage 3b chronic kidney disease 10/10/2020 Overview: Per CKD protocol Benign hypertension with stage 3b chronic kidney disease 10/10/2020 Overview: Per CKD protocol Dementia without behavioral disturbance 03/28/20 20 Overview: ICD-10 update of inactive term Frequent [...] as of this encounter (statuses as of 01/14/2024) Resolved Problems Problem Noted Date Diagnosed Date [...] 01/09/2015 Memory deficits 03/13/2012 03/28/2020 [facility] 03/13/2012 012 Slow transit constipation 03/11/2012 SAH (subarachnoid hemorrhage) 02/03/2012 01/28/2017 Hypokalemia 02/03/2012 03/13/2012 GERD (gastroesophageal reflux disease) 07/17/2016 Major depressive disorder Overview: ICD-10 update of inactive term Subarachnoid hemorrhage 02/26 Cerebral aneurysm 01/28/2017 HTN, goal below 130/80 01/21 Type II or unspecified type diabetes mellitus without mention of complication, not stated as uncontrolled 03/13/2012 documented as of this encounter (statuses as of 01/14/2024) Immunizations Name Administration Dates Next Due COVID-19 [...] pur e alcohol) PHQ-2 Answer Date Recorded PHQ-2 Score 0 03/01/2018 Utilities Answer Date Recorded Do you have trouble paying y our heating, water, or electric bill? (Adult - for ages 18 years and over) Not on file 10/14/2023 Is your family able to pay t he heat, water, or electric bill? (Household - for ages 0-17 years) Not on file 10/14/2023 Does your family have access to good internet? (Household - for ages 0-17 years) Not on file 10/14/2023 Social Connections Answer Date Recorded How often do you feel lonely or isolated from those around you? (Adult - for ages 18 years and over) Not on file 10/14/2023 Sex and Gender Information Value Date Recorded Sex Assigned at Not on file Gender Identity Not on file Sexual Orientation Not on file Job Start Date Occupation Industry Not on file Not on file Not on file documented as of this encounter Miscellaneous Notes * Telephone Encounter - Mar Puga RN - 01/14/2024 3:44 PM EDT faxed * Telephone Encounter - Zainab Herndon DO - 01/06/2024 11:37 AM EDT Please fax new referral. * Telephone Encounter - Shannon De Leon LPN - 01/06/2024 10:04 AM EDT Jamila from [facility] calling to request new HH order. They had an old order from 11/11 for HH. When this order was received HH was unable to successful onreaching pt to set up services. Yesterday they received a call from family to set up HH services but the order from 11/11 is too old. documented in this encounter Plan of Treatment Upcoming Encounters Date Type Department Care Team (Late st Contact Info) Description 01/20/2024 1:00 PM EDT Nurse Only Ancillary [address] [place] [address] [place], Nurse [address] [place] [address] 02/05/2024 3:00 PM EDT Nurse Only Ancillary [address] [place] [address] Trevor, Nurse [address] [place] [address] 02/05/2024 3:15 PM EDT Office Visit Orthopaedics [address] [place] [phone] Jm Burkett MD [address] [place] [address] 08/20/2024 3:10 PM EDT Office Visit Family Medicine [address] [place] [phone] Zainab Herndon DO [address] [place] [address] [place] [address] Scheduled Referrals Name Type Priority Associated Diagnoses Orde r Schedule HOME HEALTH REFERRAL OP Referral Within 10 days (routine) Ambulatory dysfunction Ordered: 01/06/2024 Health Maintenance Due Date Last Done Comments DTap/Tdap Vaccines (1 - Tdap) 1954 Zoster Vaccines (1 of 2) 10/14/1987 Adult Wellness Visit 10/14/2003 Depression Screening 12/04/2018 12/04/2017 DXA Scan 09/28/2022 09/28/2020, 02/28, 08/02/2015, Additional history exists Diabetic Eye Exam 12/20/2022 12/20/2021, , 03/14/2016, Additional history exists COVID-19 Vaccine ( season) 2023 03/19/2022, 10/03/2021, 04/04/2021, Additional history exists Influenza Vaccine (FLU shot) (#1) 2023 03/19/2022, 03/19/2022, 04/04/2021, Additional history exists HbA1c 07/01/2024 01/02/2024, 10/26, 11/01/2022, Additional history exists Albumin/Creatinine Ratio 01/01/20252 024, 04/30/2022, 04/04/2021, Additional history exists CKD HGB USE SMARTSET 84141 01/01/202501/01, 01/02/2024, 05/28/2022, Additional history exists CKD PHOS USE SMARTSET 04048 01/01/2025 09/0 09/2023, 04/30/2022, 04/10/2022, Additional history exists Diabetic Foot Exam 01/01/2025 01/02/2024, 0 11/01/2022, 10/03/2021, Additional history exists Pneumococcal Vaccine: 65+ Years Completed 07/04/2014, 09/28/2008 *BISPHONATE OR OTHER ACCEPTABLE MEDICATION NEEDED FOR OSTEOPOROSIS (REFER TO SMARTSET #2363) Addressed 01/28/2017 (Refused) Overridden wi th the intention of not completing the topic VITAMIN D LEVEL ONCE IN A LIFETIME-USE SMARTSET# 44794 Completed 01/02/2024, 04/04/2021, 09/27/2020, Additional history exists [...] this encounter Medical Devices Implanted Type Area Academic Assistant Device Identifier Shelf Expiration Date Model / Serial / Lot Galaxy Xtrasoft 2.5 X 5 Coil Implanted:Qty: 1 on 02/03/2012 at OR [facility] [place] N/A: Head [employer] 07/03/2013 / [id number] / [id number] documented as of this encounter Visit Diagnoses Diagnosis Ambulatory dysfunction- Primary documented in this encounter Advance Directives * [...] Power of Attor eleanor? No Care Teams Instrument Room Technician Relationship Specialty Start Date End Date Zainab Herndon DO [address] [place] [address] [place] [address] PCP - General Internal Medicine 01/01/17 documented as of this encounter
--- OUTSIDE RECORDS SUMMARY | 2024-04-11 12:19 | External Medical Summary | Summary of Care ---
Author Name Unknown Organization [facility] Address [address] [facility] [place] [address] Phone [phone] Care Team Providers Care Preform Machine Operator Name Role Phone Zainab Herndon DO Primary Care Provider [phone] Reason for Visit * Reason Comments eRx-Medication Refill Encounter Details Date Type Department Care Team (Late st Contact Info) Description 07/28/2023 Refill Cardiology [address] [place] [address] Cristopher Davenport MD [address] [place] [address] Hyperlipidemia with target LDL less than 70* Allergies No known active allergiesdocumented as of this encounter (statuses as of 01/02/2024) Medications Medication Sig Dispensed Refills Start Date End Date Status Rollator Ultra-Light 1 Rollator with hand brakes 1 Each 11/01/2022 Active Metoprolol Succinate ER 25 MG Oral Tablet Extended Release 24 Hour (toPROL XL)Indications:Es sential hypertension with goal blood pressure less than 140/90 TAKE 1/2 TABLET EVERY MORNING 45 Tablet 3 02/10/2023 Active Lisinopril 5 MG Oral Tablet (Prinivil)Indicat ions: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 90 Tablet 3 04/29/2023 Active Aspirin Low Dose 81 MG Oral Tablet Delayed Release Take 1 Tablet by mouth in the morning. 04/11/2022 4 Discontinued Cepacol 15-2.3 MG Mouth/Throat Lozenge (Benzocaine-Menth ol) Apply to the mouth or throat . 4 Discontinued Docusate Sodium 100 MG Oral Capsule (Colace) Take 1 Capsule by mouth 2 times a day as needed for Constipation. 4 Discontinued Atorvastatin Calcium 10 MG Oral Tablet (Lipitor) Take 1 Tablet by mouth in the morning. 90 Tablet 3 08/06/2022 4 Discontinued(Ref ill) amLODIPine Besylate 10 MG Oral Tablet (Norvasc) Take 1 Tablet by mouth in the morning. 90 Tablet 3 11/01/2022 4 Discontinued(Ref ill) Pantoprazole Sodium 40 MG Oral Tablet Delayed Release (Protonix)Indicat ions:History of non-ST elevation myocardial infarction (NSTEMI) Take 1 Tablet by mouth at bedtime. 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 30 minutes before a meal.. 90 Tablet 1 04/29/2023 4 Discontinued(Ref ill) documented as of this encounter (statuses as of 01/02/2024) Active Problems Problem Noted Date Diagnosed Date [...] as of this encounter (statuses as of 01/02/2024) Resolved Problems Problem Noted Date Diagnosed Date [...] 01/09/2015 Memory deficits 03/13/2012 03/28/2020 Fall at [facility] 03/13/2012 012 Slow transit constipation 03/11/2012 SAH (subarachnoid hemorrhage) 02/03/2012 01/28/2017 Hypokalemia 02/03/2012 03/13/2012 GERD (gastroesophageal reflux disease) 07/17/2016 Major depressive disorder Overview: ICD-10 update of inactive term Subarachnoid hemorrhage 02/26 Cerebral aneurysm 01/28/2017 HTN, goal below 130/80 01/21 Type II or unspecified type diabetes mellitus without mention of complication, not stated as uncontrolled 03/13/2012 documented as of this encounter (statuses as of 01/02/2024) Immunizations Name Administration Dates Next Due COVID-19 [...] Hd (Fluzone Hd) 04/04/2021 Seasonal Influenza, Quadriva brooke Hd, 65+ Yrs 03/19/2022 Seasonal Influenza, Quadriva [...] encounter Miscellaneous Notes * Telephone Encounter - Arabella Cristobal CMA - 07/29/2023 10:51 AM EDTPending Prescriptions: Disp Refills Atorvastatin Calcium 10 MG Oral Tablet (Li*90 Tab*0 Sig: TAKE 1 TABLET EVERY MORNING * Telephone Encounter - Arabella Cristobal CMA - 07/29/2023 10:50 AM EDT Scheduling -- please contact pt for follow up. * Telephone Encounter - Arabella Cristobal CMA - 07/29/2023 10:50 AM EDT Did you pend patient's preferred pharmacy and medication before forwarding?yes Pharmacy: [facility] [address] [facility] [place] Pending Prescriptions: Disp Refills Atorvastatin Calcium 10 MG Oral Tablet (L*90 Tab*0 Sig: TAKE 1 TABLET EVERY MORNING Last Visit: 08/06/2022 (in office), Visit date not found (telemedicine) Next Visit: Visit date not found If no future appointments scheduled, and last appointment is greater than a year ago, please schedule patient for a follow-up appointment Last date the medication was ordered: 08-06-2022 Is this request for a controlled substance?No Urine Drug Screen:No results found for this or any previous visit. Patient Phone Numbers Labs: Lab Results Component Value Date/Time CREAT 1.2 (H) 11/01/2022 04:02 PM CREAT 1.10 (A) 05/14/2022 12:00 AM CREAT 1.3 (H) 02/07/2020 12:04 PM POTASSIUM 4.3 11/01/2022 04:02 PM POTASSIUM 4.0 05/14/2022 12:00 AM POTASSIUM 3.9 02/07/2020 12:04 PM TSH 3.11 10/03/2021 02:52 PM TSH 3.03 04/08/2018 02:46 PM LDLCALC 43 04/30/2022 01:55 PM LDLCALC UNINTERPRETABLE RESULT 10/14/2018 02:09 PM LDLDIRECT 67 04/04/2021 03:59 PM LDLDIRECT 75 02/07/2020 12:04 PM ALT 23 04/30/2022 01:55 PM ALT 33 02/07/2020 12:04 PM HGBA1C 7.0 (H) 11/01/2022 04:02 PM HGBA1C 6.9 04/10/2022 12:00 AM HGBA1C 7.7 (H) 02/07/2020 12:04 PM documented in this encounter Plan of Treatment Upcoming Encounters Date Type Department Care Team (Late st Contact Info) Description 01/20/2024 1:00 PM EDT Nurse Only Ancillary [address] [place] [address] Nurse Saul [address] [place] [address] 02/05/2024 3:00 PM EDT Nurse Only Ancillary [address] [place] [address] Trevor, [address] [place] [address] 02/05/2024 3:15 PM EDT Office [place] [address] [address] [phone] Jm Burkett MD [address] [place] [address] 08/20/2024 3:10 PM EDT Office Visit Family Medicine [address] [phone] Zainab Herndon [address] [place] [address] Health Maintenance Due Date Last Done Comments DTap/Tdap Vaccines (1 - Tdap) 1954 Zoster Vaccines (1 of 2) 10/14/1987 Adult Wellness Visit 10/14/2003 Depression Screening 12/04/2018 12/04/2017 DXA Scan 09/28/2022 09/28/2020, 02/28, 08/02/2015, Additional history exists Diabetic Eye Exam 12/20/2022 12/20/2021, , 03/14/2016, Additional history exists Albumin/Creatinine Ratio 04/30/2023 023, 04/04/2021, 09/28/2020, Additional history exists CKD PHOS USE SMARTSET 03446 04/30/2023 01/0 06/2022, 04/10/2022, 04/04/2021, Additional history exists CKD HGB USE SMARTSET 08630 05/28/202305/28, 05/28/2022, 05/14/2022, Additional history exists COVID-19 Vaccine ( season) 2023 03/19/2022, 10/03/2021, 04/04/2021, Additional history exists Influenza Vaccine (FLU shot) (#1) 2023 03/19/2022, 03/19/2022, 04/04/2021, Additional history exists HbA1c 05/14/2024 11/12/2023, 07/0 10/2022, 04/30/2022, Additional history exists Diabetic Foot Exam 01/01/2025 01/02/2024, 0 11/01/2022, 10/03/2021, Additional history exists Pneumococcal Vaccine: 65+ Years Completed 07/04/2014, 09/28/2008 *BISPHONATE OR OTHER ACCEPTABLE MEDICATION NEEDED FOR OSTEOPOROSIS (REFER TO SMARTSET #1146) Addressed 01/28/2017 (Refused) Overridden wi th the intention of not completing the topic VITAMIN D LEVEL ONCE IN A LIFETIME-USE SMARTSET# 23978 Completed 04/04/2021, 09/27/2020, 02/07/2020, Additional history exists HPV (Gardasil) Vaccine Aged Out No lo nger eligible based on patient's age to complete this topic Hepatitis B Vaccine Aged Out No longe r eligible based on patient's age to complete this topic MENINGOCOCCAL (MENACTRA/MENVEO) Aged Out No longer eligible based on patient's age to complete this topic documented as of this encounter Medical Devices Implanted Type Area Nnp Device Identifier Shelf Expiration Date Model / Serial / Lot Galaxy Xtrasoft 2.5 X 5 Coil Implanted:Qty: 1 on 02/03/2012 at [place] [facility] [place] N/A: Head [employer] 07/03/2013 / [id number] / [id number] documented as of this encounter Visit Diagnoses Diagnosis Hyperlipidemia with target LDL less than 70- Primary Other and unspecified hyperlipidemia documented in this encounter Advance Directives * [...] Power of Attor eleanor? No Care Teams Preform Machine Operator Relationship Specialty Start Date End Date Zainab Herndon DO [address] [place] [address] [place] [phone] PCP - General Internal Medicine 01/01/17 documented as of this encounter
--- OUTSIDE RECORDS SUMMARY | 2024-04-11 12:19 | External Medical Summary | Summary of Care ---
Author Name Unknown Organization [facility] Address [address] [place] [address] Phone [phone] Care Team Providers Care Incident Analyst Name Role Phone Zainab Herndon DO Primary Care Provider Reason for Visit * Reason Comments Outpatient Testing Encounter Details Date Type Department Care Team (Late st Contact Info) Description 01/02/2024 9:40 AM EDT Laboratory Laboratory [address] [place] [phone] [place] [address] Chronic kidney disease, unspecified CKD stage; DM type 2 nursing care encounter ([facility]); Hyperlipidemia with target LDL less than 70; Type 2 diabetes mellitus with stage 3b chronic kidney disease, without long-term current use of insulin ([facility]); Vitamin D deficiency Allergies No known active allergiesdocumented as of this encounter (statuses as of 01/02/2024) Medications Medication Sig Dispensed Refills Start Date End Date Status Rollator Ultra-Light 1 Rollator with hand brakes 1 Each 11/01/2022 Active Metoprolol Succinate ER 25 MG Oral Tablet Extended Release 24 Hour (toPROL XL)Indications:Essen tial hypertension with goal blood pressure less than 140/90 TAKE 1/2 TABLET EVERY MORNING 45 Tablet 3 02/10/2023 Active Lisinopril 5 MG Oral Tablet (Prinivil)Indication s:Benign hypertension with stage 3b chronic kidney disease [...] Active amLODIPine Besylate 10 MG Oral Tablet (Norvasc)Indications :Essential hypertension with goal blood pressure less than 140/90 Take 1 Tablet by mouth in the morning. 90 Tablet 3 10/28/2023 Active Pantoprazole Sodium 40 MG Oral Tablet Delayed Release (Protonix)Indication s:History of non-ST elevation myocardial infarction (NSTEMI) Take 1 Tablet by mouth at bedtime. 90 Tablet 3 12/23/2023 Active Aspirin 81 MG Oral Tablet ChewableIndications: History of HI (myocardial infarction) Take 1 Tablet by mouth in the morning. with food.. 100 Tablet 3 01/02/2024 Active Yworcdc-Sqsehe-Demee Pertussis 5-2.5-18.5 LF-MCG/0.5 Suspension Prefilled Syringe (Boostrix) Inject 0.5 mL into a large muscle once for 1 dose. As directed 0.5 mL 01/02/2024 01/02/2024 Active Zoster Vac Recomb Adjuvanted 50 [...] 01/09/2015 Memory deficits 03/13/2012 03/28/2020 Fall at [facility] 03/13/2012 012 Slow transit constipation 03/11/2012 SAH [...] on file documented as of this encounter Plan of Treatment Upcoming Encounters Date Type Department Care Team (Late st Contact Info) Description 01/20/2024 1:00 PM EDT Nurse Only Ancillary [address] [place] [address] [place], Nurse [address] [place] [address] 02/05/2024 3:00 PM EDT Nurse Only Ancillary [address] [place] [address] Trevor Nurse [address] [place] [address] 02/05/2024 3:15 PM EDT Office Visit Orthopaedics [address] [phone] Jm Burkett MD [address] [place] [address] 08/20/2024 3:10 PM EDT Office Visit Family Medicine [address] [phone] Zainab Herndon DO [address] [place] [address] [place] [address] Pending Results Name Type Priority Associated Diagnoses Date /Time ALBUMIN / CREATININE RATIO, URINE Lab Routine Chronic kidney disease, unspecified CKD stage 01/02/2024 9:44 AM EDT PHOSPHORUS Lab Routine Chronic kidney disease, unspecified CKD stage 01/02/2024 9:44 AM EDT HEMOGLOBIN A1C Lab Routine DM type 2 nursing care encounter ([facility]) 01/02/2024 9:44 AM EDT LIPID PANEL WITH DIRECT LDL IF TG IS HIGH Lab Routine Hyperlipidemia with target LDL less than 70 01/02/2024 9:44 AM EDT CBC WITH WBC DIFFERENTIAL AND ANEMIA REFLEX WORKUP Lab Routine Type 2 diabetes mellitus with stage 3b chronic kidney disease, without long-term current use of insulin ([facility]) 01/02/2024 9:44 AM EDT 25-HYDROXY VITAMIN D Lab Routine Vitamin D deficiency 01/02/2024 9:44 AM EDT ANEMIA CBC Lab Routine Type 2 diabetes mellitus with stage 3b chronic kidney disease, without long-term current use of insulin ([facility]) 01/02/2024 9:44 AM EDT DIFFERENTIAL, AUTOMATED Lab Routine Type 2 diabetes mellitus with stage 3b chronic kidney disease, without long-term current use of insulin ([facility]) 01/02/2024 9:44 AM EDT ANEMIA REFLEX CHEMISTRY HOLD Lab Routine Type 2 diabetes mellitus with stage 3b chronic kidney disease, without long-term current use of insulin (HCC) 01/02/2024 9:44 AM EDT Health Maintenance Due Date Last Done Comments DTap/Tdap Vaccines (1 - Tdap) 1954 Zoster Vaccines (1 of 2) 10/14/1987 Adult Wellness Visit 10/14/2003 Depression Screening 12/04/2018 12/04/2017 DXA Scan 09/28/2022 09/28/2020, 02/28, 08/02/2015, Additional history exists Diabetic Eye Exam 12/20/2022 12/20/2021, , 03/14/2016, Additional history exists Albumin/Creatinine Ratio 04/30/2023 023, 04/04/2021, 09/28/2020, Additional history exists CKD PHOS USE SMARTSET 59242 04/30/202306/2022, 04/10/2022, 04/04/2021, Additional history exists CKD HGB USE SMARTSET 79190 05/28/202305/28, 05/28/2022, 05/14/2022, Additional history exists COVID-19 Vaccine (2022- season) 2023 03/19/2022, 10/03/2021, 04/04/2021, Additional history [...] D LEVEL ONCE IN A LIFETIME-USE SMARTSET# 36024 Completed 04/04/2021, 09/27/2020, 02/07/2020, Additional history exists [...] this encounter Medical Devices Implanted Type Area Heel Cover Splitter Device Identifier Shelf Expiration Date Model / Serial / Lot Galaxy Xtrasoft 2.5 X 5 Coil Implanted:Qty: 1 on 02/03/2012 at [place] [facility] [place]A: Head [employer] 07/03/2013 / [id number] / [id number] documented as of this encounter Visit Diagnoses Diagnosis Chronic kidney disease, unspecified CKD stage DM type 2 nursing care encounter (HCC) Type II or unspecified type diabetes mellitus without mention of complication, not stated as uncontrolled Hyperlipidemia with target LDL less than 70 Other and unspecified hyperlipidemia Type 2 diabetes mellitus with stage 3b chronic kidney disease, without long-term current use of insulin (HCC) Vitamin D deficiency Unspecified vitamin D deficiency [...] Power of Attor eleanor? No Care Teams Incident Analyst Relationship Specialty Start Date End Date Zainab Herndon DO [address] [place] [address] [place] [address] PCP - General Internal Medicine 01/01/17 documented as of this encounter
--- OUTSIDE RECORDS SUMMARY | 2024-04-11 12:19 | External Medical Summary | Summary of Care ---
Author Name Unknown Organization [facility] Address [address] [place] [address] Phone [phone] Care Team Providers Care Supervisor Orchard Name Role Phone Tarah Ta DO Primary Care Provider Reason for Visit * Reason Onset Date Comments Medication Refill 03/19/2024 Encounter Details Date Type Department Care Team (Late st Contact Info) Description 03/19/2024 Refill Family Medicine [address] [phone] Tarah Ta [address] [place] [address] Type 2 diabetes mellitus with stage 3b chronic kidney disease, without long-term current use of insulin (HCC) Allergies No known active allergiesdocumented as of this encounter (statuses as of 03/19/2024) Medications Rollator Ultra-Light 1 Rollator with hand brakes 1 Each 3 Active amLODIPine Besylate 10 MG Oral Tablet (Norvasc)Indicati ons:Essential hypertension with goal blood pressure less than 140/90 Take 1 Tablet by mouth in the morning. 90 Tablet 3 4 Active Pantoprazole Sodium 40 MG Oral Tablet Delayed Release (Protonix)Indicat ions:History of non-ST elevation myocardial infarction (NSTEMI) Take 1 Tablet by mouth at bedtime. 90 Tablet 3 4 Active Aspirin 81 MG Oral Tablet ChewableIndicatio ns:History of [place] (myocardial infarction) Take 1 Tablet by mouth in the morning. with food.. 100 Tablet 3 4 Active Zoster Vac Recomb Adjuvanted 50 MCG/0.5ML Intramuscular Suspension Reconstituted (Shingrix) Inject 0.5 mL into a large muscle now and repeat dose in 60 to 180 days 1 Each 1 4 Active Atorvastatin Calcium 10 MG Oral Tablet (Lipitor) Take 1 Tablet by mouth in the morning. 90 Tablet 3 4 Active Metoprolol Succinate ER 25 MG Oral Tablet Extended Release 24 Hour (toPROL XL)Indications:Es sential hypertension with goal blood pressure less than 140/90 TAKE 1/2 TABLET EVERY MORNING 45 Tablet 4 Active glipiZIDE ER 2.5 MG Oral Tablet Extended Release 24 Hour (glipiZIDE XL)Indications:Ty pe 2 diabetes mellitus with stage 3b chronic kidney disease, without long-term current use of insulin (HCC) Take 1 Tablet by mouth in the morning. 30 minutes before a meal.. 90 Tablet 1 4 Active Lisinopril 5 MG Oral Tablet (Prinivil)Indicat ions: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 90 Tablet 3 4 03/19/20 24 Discontin ued(Refil l) glipiZIDE ER 2.5 MG Oral Tablet Extended Release 24 Hour (glipiZIDE XL)Indications:Ty pe 2 diabetes mellitus with stage 3b chronic kidney disease, without long-term current use of insulin (HCC) Take 1 Tablet by mouth in the morning. 30 minutes before a meal.. 90 Tablet 1 4 03/19/20 24 Discontin ued(Refil l) documented as of this encounter (statuses as [...] 01/09/2015 Memory deficits 03/13/2012 03/28/2020 [facility] 03/13/2012 012 Slow transit constipation 03/11/2012 SAH [...] encounter Miscellaneous Notes * Telephone Encounter - Tarah Ta DO - 03/19/2024 1:41 PM ESTSigned Prescriptions: Disp Refills glipiZIDE ER 2.5 MG Oral Tablet Extended R*90 Tab*1 Sig: Take 1 Tablet by mouth in the morning. 30 minutes before a meal.. Authorizing Provider: TARAH TA * Telephone Encounter - Alisia Lopez RN - 03/19/2024 1:17 PM ESTPending Prescriptions: Disp Refills glipiZIDE ER 2.5 MG Oral Tablet Extended R*90 Tab*1 Sig: Take 1 Tablet by mouth in the morning. 30 minutes before a meal.. * Telephone Encounter - Kimberley Escobar OSA - 03/19/2024 11:28 AM EST Did you pend patient's preferred pharmacy and medication before forwarding?yes [facility] [id number] [facility] Pending Prescriptions: Disp Refills glipiZIDE ER 2.5 MG Oral Tablet Extended *90 Tab*1 Sig: Take 1 Tablet by mouth in the morning. 30 minutes before a meal.. Last Visit: 01/02/2024 (in office), Visit date not found (telemedicine) Next Visit: 08/20/2024 If no future appointments scheduled, and last appointment is greater than a year ago, please schedule patient for a follow-up appointment Last date the medication was ordered: 7 Is this request for a controlled substance?No Urine Drug Screen:No results found for this or any previous visit. Patient Phone Numbers Labs: Lab Results Component Value Date/Time CREAT 1.2 (H) 11/12/2023 09:29 AM CREAT 1.10 (A) 05/14/2022 12:00 AM CREAT 1.3 (H) 02/07/2020 12:04 PM POTASSIUM 4.7 11/12/2023 09:29 AM POTASSIUM 4.0 05/14/2022 12:00 AM POTASSIUM 3.9 02/07/2020 12:04 PM TSH 3.11 10/03/2021 02:52 PM TSH 3.03 04/08/2018 02:46 PM LDL 132 (H) 01/02/2024 09:44 AM LDL 75 02/07/2020 12:04 PM LDL UNINTERPRETABLE RESULT 10/14/2018 02:09 PM ALT 23 04/30/2022 01:55 PM ALT 33 02/07/2020 12:04 PM HGBA1C 6.9 (H) 01/02/2024 09:44 AM HGBA1C 6.9 04/10/2022 12:00 AM HGBA1C 7.7 (H) 02/07/2020 12:04 PM documented in this encounter Plan of Treatment Upcoming Encounters Date Type Department Care Team (Late st Contact Info) Description 08/20/2024 3:10 PM EDT Office Visit Family Medicine [address] [place] [phone] Tarah Ta, [address] [place] [address] 01/20/2025 2:30 PM EDT Nurse Only Ancillary [address] [place] [address] [place], Nurse [address] [place] [address] Health Maintenance Due Date Last Done Comments DTap/Tdap Vaccines (1 - Tdap) 1954 Zoster Vaccines (1 of 2) 10/14/1987 DXA Scan 09/28/2022 09/28/2020, 02/28, 08/02/2015, Additional history exists HbA1c 07/01/2024 01/02/2024, 10/26, 11/01/2022, Additional history exists Albumin/Creatinine Ratio 01/01/2025 024, 04/30/2022, 04/04/2021, Additional history exists CKD HGB USE SMARTSET 29911 01/01/202501/01, 01/02/2024, 05/28/2022, Additional history exists CKD PHOS USE SMARTSET 86495 01/01/2025 09/0 09/2023, 04/30/2022, 04/10/2022, Additional history [...] D LEVEL ONCE IN A LIFETIME-USE SMARTSET# 74279 Completed 01/02/2024, 04/04/2021, 09/27/2020, Additional history exists [...] this encounter Medical Devices Implanted Type Area Help Desk Representative Device Identifier Shelf Expiration Date Model / Serial / Lot Galaxy Xtrasoft 2.5 X 5 Coil [place]ed:[place] [facility] [place] Head [employer] 07/03/2013 / [id number] / [id number] documented as of this encounter Visit Diagnoses Diagnosis Type 2 diabetes mellitus with stage 3b chronic kidney disease, without long-term current use of insulin (HCC) documented in this encounter Advance Directives * [...] Power of Attor eleanor? No Care Teams Supervisor Orchard Relationship Specialty Start Date End Date Tarah Ta DO [address] [place] [address] [place] [phone] PCP - General Internal Medicine 01/01/17 documented as of this encounter
--- OUTSIDE RECORDS SUMMARY | 2024-04-11 12:19 | External Medical Summary | Summary of Care ---
Author Name Unknown Organization [facility] Address [address] [facility] [address] Phone [phone] Care Team Providers Care Solar Installer Pv Name Role Phone Zainab Herndon DO Primary Care Provider Reason for Visit * Reason Comments Follow Up L hip Encounter Details Date Type Department Care Team (Late st Contact Info) Description 02/05/2024 3:15 PM EDT Office Visit Orthopaedics [address] [phone] Jm Burkett MD [address] [place] [id number] Hip pain, left* Allergies No known active allergiesdocumented as of this encounter (statuses as of 02/05/2024) Medications Medication Sig Dispensed Refills Start Date [...] 81 MG Oral Tablet ChewableIndications:H istory of [place] (myocardial infarction) Take 1 Tablet by mouth [...] as of this encounter (statuses as of 02/05/2024) Active Problems Problem Noted Date Diagnosed Date [...] as of this encounter (statuses as of 02/05/2024) Resolved Problems Problem Noted Date Diagnosed Date [...] as of this encounter (statuses as of 02/05/2024) Immunizations Name Administration Dates Next Due COVID-19 mRNA, LNP-s, No Pre serve, 2-Dose Series (Moderna) 08/15/2020,07/11/2020 COVID-19, MRNA-LNP, 24-25, P R, 30MCG/0.3ML, IM, 12YRS AND ABOVE ([employer]reathe[place]-Comirnaty) 02/05/2024 Pneumococcal Conjugate Vacc, 13 Valent (Prevnar) [...] on file documented as of this encounter Progress Notes * Jm Burkett MD - 02/05/2024 3:22 PM EDT Sandra Mcleod [phone] Sandra Mcleod is a 88 year old female who presents for follow-up for left hip injury/pain to [facility]. I saw her originally for this on 11/27/2023 Sandra Mcleod is here with her granddaughter Quality: reviewed and agree with Nursing Notes for HPI elements History: History on 11/27/2023 - L Hip Pt seen on 11/01/23 @ [facility] ED Pt DENIES pain today Pain is noted along the lateral aspect of her hip. She has been seen by her primary care office in follow-up this and was given a home health/PT recommendation. Unfortunately her family did not receive the phone calls due to their work schedules and did not schedule yet. She is also taking Tylenol which controls her pain. She is taking regular strength 3 times per day. Since that visit: L hip Pt denies pain at this visit Pt has had some home PT nearly 3 sessions ROS: ROS per HPI otherwise non-contributory Past Medical History: Diagnosis Date Abnormality of gait 03/13/2012 Anemia 03/13/2012 Balance problems 07/14/2013 Cerebral aneurysm Constipation, slow transit 07/14/2013 Depressive disorder, not elsewhere classified DM type 2, goal A1c below 7 03/13/2012 DM type 2, goal A1C below 8.0 09/15/2013 Essential hypertension with goal blood pressure less than 140/90 01/17/2016 Fall [facility] 03/13/2012 Gastroesophageal reflux disease without esophagitis 01/17/2016 GERD (gastroesophageal reflux disease) HTN, goal below 130/80 HTN, goal below 140/80 01/21/2013 HTN, goal below 140/90 06/16/2014 Memory deficits 03/13/2012 Persistent insomnia 03/15/2013 SAH (subarachnoid hemorrhage) ([facility]) 02/03/2012 Senile osteoporosis 09/05/2012 Subarachnoid hemorrhage (HCC) Type II or unspecified type diabetes mellitus without mention of complication, not stated as uncontrolled Urge incontinence 09/15/2013 Vitamin D deficiency 03/13/2012 Family History Problem Relation Name Age of Onset Alcohol and Other Disorders Associated Sister Lung Disorder Father Other (Other) Brother in MVA Social History Socioeconomic History Marital status: Spouse name: Not on file Number of children: 4 Years of education: Not on file Highest education level: Not on file Occupational History Occupation: Retired Tobacco Use Smoking status: Never Smokeless tobacco: Never Substance and Sexual Activity Alcohol use: No Drug use: No Sexual activity: Not on file Other Topics Concern Not on file Social History Narrative 60yrs 01/20/2024 Social Determinants of Health Financial Resource Strain: Low Risk (01/20/2024) Financial Resource Strain Do you have any trouble paying for your medications, or do you think you might in the future? (Adult - for ages 18 years and over): No Does your family have trouble paying for medicine? (Household - for ages 0-17 years): Not on file Food Insecurity: No Food Insecurity (01/20/2024) Food Insecurity Do you need food for this week? (Adult - for ages 18 years and over): No Are you able to get enough food for your family? (Household - for ages 0-17 years): Not on file Does your family need food this week? (Household - for ages 0-17 years): Not on file Do you always have enough food for your family? (Household - for ages 0-17 years): Not on file Transportation Needs: No Transportation Needs (01/20/2024) Transportation Needs Do you have trouble getting a ride to medical visits or work? (Adult - for ages 18 years and over):Not on file Does your family have a hard time getting a ride to doctors visits? (Household - for ages 0-17 years): Not on file Has lack of transportation kept you from medical appointments, meetings, work, or from getting things needed for daily living? Check all that apply. (Adult - for ages 18 years and over): No Do you (or your family) have trouble finding or paying for a ride (transportation)? (Household - for ages 0-17 years): Not on file Social Connections: Socially Integrated (01/20/2024) Social Connections How often do you feel lonely or isolated from those around you? (Adult - for ages 18 years and over): Never Housing Stability: Low Risk (01/20/2024) Housing Stability Do you currently live in a retirement or have no steady place to sleep at night? (Adult - for ages 18 years and over): No Do you think you are at risk of becoming homeless? (Adult - for ages 18 years and over): Not on file Does your family worry about paying for your home or becoming homeless? (Household - for ages 0-17 years): Not on file Are you homeless or worried that you might be in the future? (Adult - for ages 18 years and over): No Are you (or your family) homeless or worried that you might be in the future? (Household - for ages0-17 years): Not on file Physical Exam Constitutional: Generally well-nourished and in no acute distress Psychiatric: Mood and Affect normal Eyes: EOMI Respiratory: Normal respiratory effort with regular rate and rhythm Cardiovascular: No edema in the affected extremity (s) Radiology: Outside films: Full report and images now available in our system 11/27/2023: Three-view x-ray left hip including AP pelvis Impression: Stable degenerative changes without acute osseous abnormality. Soft tissue calcifications adjacent to the greater trochanter may relate calcific tendinopathy in the appropriate setting. 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 Near resolution of symptoms With 3 physical therapy sessions at home. She has 1 more session and then we will be doing home exercises She will follow up p.r.n. Jm Burkett MD Primary Care Sports Medicine Orthopaedics [address] [phone] documented in this encounter Nursing Notes * Adalgisa Ortiz LPN - 02/05/2024 3:13 PM EDT F/u L hip Pt denies pain at this visit Pt has had some home PT nearly 3 sessions Pt is accompanied by her granddaughter today Ariela AmadorLavern HILL documented in this encounter Plan of Treatment Upcoming Encounters Date Type Department Care Team (Late st Contact Info) Description 08/20/2024 3:10 PM EDT Office Visit Family Medicine [address] [place] [phone] Zainab Herndon, [address] [place] [address] 01/20/2025 2:30 PM EDT Nurse Only Ancillary [address] [place] [address] [place], Nurse Annual [address] [place] [address] Health Maintenance Due Date Last Done Comments DTap/Tdap Vaccines (1 - Tdap) 1954 Zoster Vaccines (1 of 2) 10/14/1987 DXA Scan 09/28/2022 09/28/2020, 02/28, 08/02/2015, Additional history exists HbA1c 07/01/2024 01/02/2024, 10/26, 11/01/2022, Additional history exists Albumin/Creatinine Ratio 01/01/2025 024, 04/30/2022, 04/04/2021, Additional history exists CKD HGB USE SMARTSET 39926 01/01/202501/01, 01/02/2024, 05/28/2022, Additional history exists CKD PHOS USE SMARTSET 32854 01/01/2025 09/0 09/2023, 04/30/2022, 04/10/2022, Additional history [...] D LEVEL ONCE IN A LIFETIME-USE SMARTSET# 45558 Completed 01/02/2024, 04/04/2021, 09/27/2020, Additional history exists [...] this encounter Medical Devices Implanted Type Area Tray Drier Operator Device Identifier Shelf Expiration Date Model / Serial / Lot Galaxy Xtrasoft 2.5 X 5 Coil Implanted:Qty: 1 on 02/03/2012 [place] [facility] [place] Head [employer] 07/03/2013 / [id number] / [id number] documented as of this encounter Visit Diagnoses Diagnosis Hip pain, left- Primary Pain in joint, pelvic region and thigh documented in this encounter Advance Directives * [...] Power of Attor eleanor? No Care Teams Solar Installer Pv Relationship Specialty Start Date End Date Zainab Herndon DO [address] [place] [address] [place] [address] PCP - General Internal Medicine 01/01/17 documented as of this encounter
--- OUTSIDE RECORDS SUMMARY | 2024-04-11 12:19 | External Medical Summary | Summary of Care ---
Author Name Unknown Organization [facility] Address [address] [facility] [place] [address] Phone [phone] Care Team Providers Care Expander Name Role Phone Zainab Herndon DO Primary Care Provider [phone] Encounter Details Date Type Department Care Team (Late st Contact Info) Description 02/05/2024 3:00 PM EDT Nurse Only Ancillary [address] [place] [address] [place], Nurse [address] [place] [address] Arrived Allergies No known active allergiesdocumented as of [...] 81 MG Oral Tablet ChewableIndications:H istory of [place] (myocardial infarction) Take 1 Tablet by mouth [...] Per CKD protocol #1 Persistent insomnia 03/15/2013 03/09/20 15 HTN, goal below 140/90 01/21/201301/21 HTN, [...] P R, 30MCG/0.3ML, IM, 12YRS AND ABOVE (Pfizer-Comirnat) 02/05/2024 Pneumococcal Conjugate Vacc, 13 Valent (Prevnar) [...] PM EDT Office Visit Family Medicine [address] [place] [phone] Zainab Herndon[address] [place] [address] 01/20/2025 2:30 PM EDT Nurse Only Ancillary [address] [place] [address] [place], Nurse Annual Wellness [address] [place] [address] [place] [address] Health Maintenance Due Date Last Done Comments DTap/Tdap Vaccines (1 - Tdap) 1954 Zoster Vaccines (1 of 2) 10/14/1987 DXA Scan 09/28/2022 09/28/2020, 02/28, 08/02/2015, Additional history exists HbA1c 07/01/2024 01/02/2024, 10/26, 11/01/2022, Additional history exists Albumin/Creatinine Ratio 01/01/20252 024, 04/30/2022, 04/04/2021, Additional history exists CKD HGB USE SMARTSET 90266 01/01/202501/01, 01/02/2024, 05/28/2022, Additional history exists CKD PHOS USE SMARTSET 61198 01/01/2025 09/0 09/2023, 04/30/2022, 04/10/2022, Additional history [...] D LEVEL ONCE IN A LIFETIME-USE SMARTSET# [id number] Completed 01/02/2024, 04/04/2021, 09/27/2020, Additional history exists [...] this encounter Medical Devices Implanted Type Area Renal Medicine Physician Device Identifier Shelf Expiration Date Model / Serial / Lot Galaxy Xtrasoft 2.5 X 5 Coil Implanted:Qty: 1 on 02/03/2012 [place] [facility] [place] Head [employer] 07/03/2013 / [id number] / [id number] documented as of this encounter Advance Directives * Full Code [...] Power of Attor eleanor? No Care Teams Expander Relationship Specialty Start Date End Date Zainab Herndon DO [address] [place] [address] [place] [phone] PCP - General Internal Medicine 01/01/17 documented as of this encounter
--- OUTSIDE RECORDS SUMMARY | 2024-04-11 12:19 | External Medical Summary ---
Author Name Unknown Address Unknown Organization [id number]:[facility] [place] - [address] [place] [address] [address] [place] [place] [address] Laboratory Report Ordering Provider Test Date Status KEYON RASCON 01/02/2024 09:44:53 Final Observation Date Value Abnormality Reference (Units ) Status WBC, Total 01/02/2024 09:44:53 5.45 4.00-10.8 0 (K/uL) Final RBC 01/02/2024 09:44:53 3.68 3.85-5.15 (M/uL) Final Hemoglobin 01/02/2024 09:44:53 12.2 12.0-15.3 (g/dL) Final Anemia reflex testing trigge rs on a HGB < 12.0 for Females and HGB < 13.0 for Males in accordance with the WHO Anemia Guidelines
Anemia reflex testing triggers on a HGB < 12.0 for Females and HGB < 13.0 for Males in accordance with the WHO Anemia Guidelines HCT 01/02/2024 09:44:53 38.8 36.0-45.2 (%) Final MCV 01/02/2024 09:44:53 105.4 81.5-97.5 (fL) Final MCH 01/02/2024 09:44:53 33.2 27.0-34.0 (pg) Final MCHC 01/02/2024 09:44:53 31.4 32.0-36.0 (g/dL) Final RDW 01/02/2024 09:44:53 14.4 11.5-15.5 (%) Final Platelets 01/02/2024 09:44:53 284 140-400 (K /uL) Final MPV 01/02/2024 09:44:53 11.0 6.6-11.1 ( fL) Final Nucleated erythrocytes/100 leukocytes [Ratio] in Blood by Automated count 01/02/2024 09:44:53 0 <=0 (/100 WBCs) Fi formerly [facility] Performing Location [facility] [place] - [address] [facility] [address]
--- OUTSIDE RECORDS SUMMARY | 2024-04-11 12:19 | External Medical Summary ---
Author Name Unknown Address Unknown Organization K01[place] [place] [address] [place] [address] Laboratory Report Ordering Provider Test Date Status KEYON RASCON 01/02/2024 09:44:53 Final Normal: <30 mg/g creatinine< br/>High: 30-300 mg/g creatinine
Very High: >300 mg/g creatinine
Nephrotic: >2200 mg/g creatinine Observation Date Value Abnormality Reference (Units ) Status Albumin, Urine 01/02/2024 09:44:53 8.00 (mg/dL) Final Creatinine, Urine 01/02/2024 09:44:53 127 (mg/dL) Final Albumin/Creatinine [Mass Ratio] in Urine 01/02/2024 09:44:53 63 Above high normal <30 (mg/g Creat) Final Performing Location [facility] [place] [address] [place] [address]
--- OUTSIDE RECORDS SUMMARY | 2024-04-11 12:19 | External Medical Summary | Summary of Care ---
Author Name Unknown Organization [facility] Address [address] [place] [address] Phone [phone] Care Team Providers Care Radiator Fitter Name Role Phone Zainab Herndon DO Primary Care Provider [phone] Reason for Visit * Reason Onset Date Comments Scan To Read 01/20/2024 Encounter Details Date Type Department Care Team (Late st Contact Info) Description 01/20/2024 Telephone Family Medicine [address] [phone] Zainab Herndon [address] [place] [address] Scan To Read Allergies No known active allergiesdocumented as of this encounter (statuses as of 02/13/2024) Medications Medication Sig Dispensed Refills Start Date [...] 81 MG Oral Tablet ChewableIndications:H istory of [place] (myocardial infarction) Take 1 Tablet by mouth [...] as of this encounter (statuses as of 02/13/2024) Active Problems Problem Noted Date Diagnosed Date [...] as of this encounter (statuses as of 02/13/2024) Resolved Problems Problem Noted Date Diagnosed Date [...] 01/09/2015 Memory deficits 03/13/2012 03/28/2020 Fall at residential 03/13/2012 012 Slow transit constipation 03/11/2012 SAH (subarachnoid hemorrhage) 02/03/2012 01/28/2017 Hypokalemia 02/03/2012 03/13/2012 GERD (gastroesophageal reflux disease) 07/17/2016 Major depressive disorder Overview: ICD-10 update of inactive term Subarachnoid hemorrhage 02/26 Cerebral aneurysm 01/28/2017 HTN, goal below 130/80 01/21 Type II or unspecified type diabetes mellitus without mention of complication, not stated as uncontrolled 03/13/2012 documented as of this encounter (statuses as of 02/13/2024) Immunizations Name Administration Dates Next Due COVID-19 [...] money to buy more. Never true 01/20/20 Within the past 12 months, t he [...] encounter Miscellaneous Notes * Telephone Encounter - Gerald Joe MD - 01/21/2024 11:31 AM EDT Retinal Scan Imaging Sandra Ruckerphart [id number] Retinal Scan Interpretation: There is no retinopathy in both eyes Diabetes Retinal Imaging Care Plan: The retinal scan results are normal - I will forward this encounter to the Ophthalmology DM Letter Pool [[id number]], they will send a normal retinal scan letter to the patient, and the patient will be seen back for a yearly scan. Gerald Joe MD 01/21/2024 11:31 AM * Telephone Encounter - Alisia Lopez RN - 01/20/2024 3:46 PM EDT A Diabetic Telemed Eye image was taken and requires your interpretation for Dr Zainab Herndon DO .Please check your inbasket for image. [facility]. documented in this encounter Plan of Treatment Upcoming Encounters Date Type Department Care Team (Late st Contact Info) Description 08/20/2024 3:10 PM EDT Office Visit Family Medicine [address] [place] [phone] Zainab Herndon DO [address] [place] [address] [place] [address] 01/20/2025 2:30 PM EDT Nurse Only Ancillary [address] [place] [address] Saul, Nurse Annual Wellness [address] [place] [address] [place] [address] Health Maintenance Due Date Last Done Comments DTap/Tdap Vaccines (1 - Tdap) 1954 Zoster Vaccines (1 of 2) 10/14/1987 DXA Scan 09/28/2022 09/28/2020, 02/28, 08/02/2015, Additional history exists HbA1c 07/01/2024 01/02/2024, 10/26, 11/01/2022, Additional history exists Albumin/Creatinine Ratio 01/01/2025 024, 04/30/2022, 04/04/2021, Additional history exists CKD HGB USE SMARTSET 29271 01/01/202501/01, 01/02/2024, 05/28/2022, Additional history exists CKD PHOS USE SMARTSET 91495 01/01/2025 09/0 09/2023, 04/30/2022, 04/10/2022, Additional history [...] D LEVEL ONCE IN A LIFETIME-USE SMARTSET# 20066 Completed 01/02/2024, 04/04/2021, 09/27/2020, Additional history exists [...] this encounter Medical Devices Implanted Type Area Health Education Specialist Device Identifier Shelf Expiration Date Model / Serial / Lot Galaxy Xtrasoft 2.5 X 5 Coil Implanted:Qty: 1 on 02/03/2012 at OR [facility] N/A: Head [employer] 07/03/2013 / [id number] / [id number] documented as of this encounter Advance Directives [...] Power of Attor eleanor? No Care Teams Radiator Fitter Relationship Specialty Start Date End Date Zainab Herndon DO [address] [place] [address] [place] [address] PCP - General Internal Medicine 01/01/17 documented as of this encounter
--- OUTSIDE RECORDS SUMMARY | 2024-04-11 12:19 | External Medical Summary ---
Author Name Unknown Address Unknown Organization K01:[facility] [place] [address] [place] [address] Laboratory Report Ordering Provider Test Date Status KEYON RASCON 01/02/2024 09:44:53 Final Observation Date Value Abnormality Reference (Units ) Status HbA1C 01/02/2024 09:44:53 6.9 Above high normal 4. 0-5.6 (%) Final The use of HbA1c to monitor glycemic status is based on normal hemoglobin and HbA composition. This test should not be used in patients with abnormal hemoglobin that affects the half life of the red blood cell or the in vivo glycation rates. Glucose, estimated average 01/02/2024 09:44:53 151 Above high normal <126 (mg/dL) Lang mandel Performing Location [facility] [address] [place] [address]
--- OUTSIDE RECORDS SUMMARY | 2024-04-11 12:19 | External Medical Summary | Summary of Care ---
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 90 Tablet 3 4 03/19/20 24 Discontin ued(Refil l) documented [...] protocol Dementia without behavioral disturbance 03/28/20 20 Overview (01/28/2022): ICD-10 update of inactive term [...] 03/19/2024 1:41 PM ESTSigned Prescriptions: Disp Refills Lisinopril 5 MG Oral Tablet (Prinivil) 90 Tab*3 Sig: Take 1 Tablet by mouth in the morning. Authorizing Provider: TARAH TA * Telephone Encounter - Alisia Lopez RN - 03/19/2024 1:32 PM ESTPending Prescriptions: Disp Refills Lisinopril 5 MG Oral Tablet (Prinivil) 90 Tab*3 Sig: Take 1 Tablet by mouth in the morning. * Telephone Encounter - Kimberley Escobar OSA - 03/19/2024 11:38 AM EST Did you pend patient's preferred pharmacy and medication before forwarding?yes Pharmacy[facility] [address] [facility] Pending Prescriptions: Disp Refills Lisinopril 5 MG Oral Tablet (Prinivil) 90 Tab*3 Sig: Take 1 Tablet by mouth in the morning. Last Visit: 01/02/2024 (in office), Visit date not found (telemedicine) Next Visit: 08/20/2024 If no future appointments scheduled, and last appointment is greater than a year ago, please schedule patient for a follow-up appointment Last date the medication was ordered: 04.29.23 Is this request for a controlled substance?No [...] 3:10 PM EDT Office Visit Family Medicine [address] [place] [phone] Tarah Ta [address] [place] [address] 01/20/2025 2:30 PM EDT Nurse Only Ancillary [address] [place] [address] [place], Nurse Annual Wellness [address] [place] [address] [place] [address] Health Maintenance Due Date Last Done Comments DTap/Tdap Vaccines (1 - Tdap) 1954 Zoster Vaccines (1 of 2) 10/14/1987 DXA Scan 09/28/2022 09/28/2020, 02/28, 08/02/2015, Additional history exists HbA1c 07/01/2024 01/02/2024, 10/26, 11/01/2022, Additional history exists Albumin/Creatinine Ratio 01/01/20252 024, 04/30/2022, 04/04/2021, Additional history exists CKD HGB USE SMARTSET 74982 01/01/202501/01, 01/02/2024, 05/28/2022, Additional history exists CKD PHOS USE SMARTSET 10699 01/01/2025 09/0 09/2023, 04/30/2022, 04/10/2022, Additional history [...] D LEVEL ONCE IN A LIFETIME-USE SMARTSET# 66623 Completed 01/02/2024, 04/04/2021, 09/27/2020, Additional history exists [...] this encounter Medical Devices Implanted Type Area Machine Sorter Device Identifier Shelf Expiration Date Model / Serial / Lot Galaxy Xtrasoft 2.5 X 5 Coil Implanted:Qty: 1 on 02/03/2012 at OR [facility] N/A: Head [employer] 07/03/2013 / [id number] / [id number] documented as of this encounter Visit Diagnoses Diagnosis 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 No Care Teams Field Pipelines Supervisor Relationship Specialty Start Date End Date Tarah Ta DO [address] [place] [address] [place] [address] PCP - General Internal Medicine 01/01/17 documented as of this encounter
--- OUTSIDE RECORDS SUMMARY | 2024-04-11 12:19 | External Medical Summary | Summary of Care ---
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 Encounter Details Date Type Department Care Team ([facility] st Contact Info) Description 01/02/2024 8:50 AM EDT Office Visit Family Medicine [address] [place] [phone] Zainab Herndon [address] [place] [address] Type 2 diabetes mellitus with hemoglobin A1c goal of less than 8.0% ([facility])*; Type 2 diabetes mellitus with stage 3b chronic kidney disease, without long-term current use of insulin ([facility]); Hyperlipidemia with target LDL less than 70; Dementia without behavioral disturbance ([facility]); Essential hypertension with goal blood pressure less than 140/90; Vitamin D deficiency; History of NE (myocardial infarction) Allergies No known active allergiesdocumented as of this encounter (statuses as of 01/02/2024) Medications Medication Sig Dispensed Refills Start Date End Date Status Rollator Ultra-Light 1 Rollator with hand brakes 1 Each 3 Active Metoprolol Succinate ER 25 MG Oral Tablet Extended Release 24 Hour (toPROL XL)Indications:Ess ential hypertension with goal blood pressure less than 140/90 TAKE 1/2 TABLET EVERY MORNING 45 Tablet 3 3 Active Lisinopril 5 MG Oral Tablet (Prinivil)Indicati ons: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 90 Tablet 3 4 Active glipiZIDE ER 2.5 MG Oral Tablet Extended Release 24 Hour (glipiZIDE XL)Indications:Typ e 2 diabetes mellitus with stage 3b chronic kidney disease, without long-term current use of insulin ([facility]) Take 1 Tablet by mouth in the morning. 30 minutes before a meal.. 90 Tablet 1 4 Active amLODIPine Besylate 10 MG Oral Tablet (Norvasc)Indicatio ns:Essential hypertension with goal blood pressure less than 140/90 Take 1 Tablet by mouth in the morning. 90 Tablet 3 4 Active Pantoprazole Sodium 40 MG Oral Tablet Delayed Release (Protonix)Indicati ons:History of non-ST elevation myocardial infarction (NSTEMI) Take 1 Tablet by mouth at bedtime. 90 Tablet 3 4 Active Aspirin 81 MG Oral Tablet ChewableIndication s:History of NE (myocardial infarction) Take 1 Tablet by mouth in the morning. with food.. 100 Tablet 3 4 Active Yyzemma-Jqqlzt-Fpg ll Pertussis 5-2.5-18.5 LF-MCG/0.5 Suspension Prefilled Syringe (Boostrix) Inject 0.5 mL into a large muscle once for 1 dose. As directed 0.5 mL 4 01/02/20 24 Active Zoster Vac Recomb Adjuvanted 50 MCG/0.5ML Intramuscular Suspension Reconstituted (Shingrix) Inject 0.5 mL into a large muscle now and repeat dose in 60 to 180 days 1 Each 1 4 Active Atorvastatin Calcium 10 MG Oral Tablet (Lipitor) Take 1 Tablet by mouth in the morning. 90 Tablet 3 4 Active Aspirin Low Dose 81 MG Oral Tablet Delayed Release Take 1 Tablet by mouth in the morning. 2 01/02/20 24 Discontinued Cepacol 15-2.3 MG Mouth/Throat Lozenge (Benzocaine-Mentho l) Apply to the mouth or throat . 01/02/20 24 Discontinued Docusate Sodium 100 MG Oral Capsule (Colace) Take 1 Capsule by mouth 2 times a day as needed for Constipation. 01/02/20 24 Discontinued Atorvastatin Calcium 10 MG Oral Tablet (Lipitor) Take 1 Tablet by mouth in the morning. 90 Tablet 3 3 01/02/20 24 Discontinued(Ref ill) documented as of this encounter [...] 01/09/2015 Memory deficits 03/13/2012 03/28/2020 Fall at shelter 03/13/2012 012 Slow transit constipation 03/11/2012 SAH [...] Sign Reading Time Taken Comments Blood Pressure 146/78 01/02/2024 9:00 AM EDT Pulse 78 01/02/2024 9:00 AM EDT Temperature 36.5 C (97.7 F) 01/02/2024 9:00 AM ED T Respiratory Rate - - Oxygen Saturation 94% 01/02/2024 9:00 AM EDT Inhaled Oxygen Concentration - - Weight 73.8 kg (162 lb 12.8 oz) 01/02/2024 9:00 AM EDT Height - - Body Mass Index 31.79 10/03/2021 2:11 PM EDT documented in this encounter Progress Notes * Zainab Herndon, - 01/02/2024 9:05 AM EDT Subjective: Sandra Mcleod is a 88 year old female. Chief Complaint Patient presents with Re-Check Pt's granddaughter states pt is having a hard time walking (arthritis in her hip), pt states her hip no longer hurts. HPI: Sandra Mcleod presents today for routine follow up. She is here with granddaughter Sakina [phone]. Sandra was referred for home health but nothing has been set up yet. Sakina feels that his is because they do not get to the phone in time. She is willing to help arrange this. Her hip pain is improved but Sakina thinks she has been immobile and now has limited mobility. She has not been taking her ASA 81 mg as she ran out of it and didn't buy more. Willing to restart.No chest pain. Her family helps her with her medicine. BS are well controlled. Due for eye exam. Memory continues to gradually get worse. Sakina notes she has no concept of time. PMH: Patient Active Problem List Diagnosis Hyperlipidemia with target LDL less than 70 Abnormality of gait Vitamin D deficiency Senile osteoporosis Type 2 diabetes mellitus with hemoglobin A1c goal of less than 8.0% (HCC) Essential hypertension with goal blood pressure less [...] History of non-ST elevation myocardial infarction (NSTEMI) Current Outpatient Medications Medication Sig Dispense Refill Atorvastatin Calcium 10 MG Oral Tablet (Lipitor) Take 1 Tablet by mouth in the morning. 90 Tablet 3 Rollator Ultra-Light 1 Rollator with hand brakes [...] by mouth at bedtime.90 Tablet 3 Aspirin Low Dose 81 MG Oral Tablet Delayed Release Take 1 Tablet by mouth in the morning. (Patient not taking: Reported on 01/02/2024) Cepacol 15-2.3 MG Mouth/Throat Lozenge (Benzocaine-Menthol) Apply to the mouth or throat . (Patientnot taking: Reported on 01/02/2024) Docusate Sodium 100 MG Oral Capsule (Colace) Take 1 Capsule by mouth 2 times a day as needed for Constipation. (Patient not taking: Reported on 01/02/2024) No current facility-administered medications for this visit. Review of patient's allergies indicates: No Known Allergies Objective: BP 146/78 | Pulse 78 | Temp 36.5 C (97.7 F) | Wt 73.8 kg (162 lb 12.8 oz) | SpO2 94% | BMI 31.79 kg/m | BSA 1.77 m General: alert, healthy, no distress, well nourished, and well developed Neck: supple, no adenopathy, thyroid normal size, non-tender, without nodularity Heart: regular rate & rhythm and no murmur Lungs: chest symmetric with normal AP diameter, no chest deformities noted, normal respiratory rateand rhythm, lungs clear to auscultation Abdomen: abdomen soft and non-tender Extremities: no joint deformities, effusion, or inflammation, no edema Neuro Exam: alert & oriented x 3 with fluent speech, no focal motor/sensory deficits, gait normal Skin: skin color, texture, turgor are normal, no rashes or significant lesions ASSESSMENT/PLAN: Type 2 diabetes mellitus with hemoglobin A1c goal of less than 8.0% ([facility]) (Primary) - well controlled on low dose glipizide. Will get her in for an eye exam. 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 - LIPID PANEL WITH DIRECT LDL IF TG IS HIGH; Future; Expected date: 01/02/2024 Dementia without behavioral disturbance (HCC) - has assistance from family, who note her memory is gradually getting worse. Essential hypertension with goal blood pressure less than 140/90 - borderline high here today. If remains high, will increase lisinopril. Vitamin D deficiency - check vitamin D level. History of NE (myocardial infarction) - Aspirin 81 MG Oral Tablet Chewable; Take 1 Tablet by mouth in the morning. with food.. Other orders - Hwnuqrr-Jqekgs-Zsupc Pertussis 5-2.5-18.5 LF-MCG/0.5 Suspension Prefilled Syringe (Boostrix); Inject 0.5 mL into a large muscle once for 1 dose. As directed - Zoster Vac Recomb Adjuvanted 50 MCG/0.5ML Intramuscular Suspension Reconstituted (Shingrix); Inject 0.5 mL into a large muscle now and repeat dose in 60 to 180 days - Atorvastatin Calcium 10 MG Oral Tablet (Lipitor); Take 1 Tablet by mouth in the morning. Follow-up: Return in about 6 months (around 07/01/2024). | Check-out note: Schedule AWV with Alisia. Labs today. Zainab Herndon DO * Monica Alas LPN - 01/02/2024 9:02 AM EDT Socks and Shoes Removed for Annual Diabetic Foot Screening RIGHT FOOT: Area of Concern: cracking . RIGHT Dorsalis Pedis Pulse: Unable to locate RIGHT Posterior Tibial Pulse: Unable to locate RIGHT Monofilament:Patient reports feeling monofilament pressure on plantar surface of foot LEFT FOOT: Area of Concern cracking LEFT Dorsalis Pedis Pulse: Unable to locate LEFT Posterior Tibial Pulse: Unable to locate LEFT Monofilament:Patient reports feeling monofilament pressure on plantar surface of foot documented in this encounter Plan of Treatment Upcoming Encounters Date Type Department Care Team (Late st Contact Info) Description 01/20/2024 1:00 PM EDT Nurse Only Ancillary [address] [place] [phone] Nurse Saul [address] [place] [address] 02/05/2024 3:00 PM EDT Nurse Only Ancillary [address] [place] [address] Nurse Trevor [address] [place] [address] 02/05/2024 3:15 PM EDT Office Visit Orthopaedics [address] [place] [phone] Jm Burkett MD [address] [place] [address] 08/20/2024 3:10 PM EDT Office Visit Family Medicine [address] [place] [phone] Zainab Herndon DO [address] [place] [address] [place] [address] Pending Results Name Type Priority Associated Diagnoses Date /Time LIPID PANEL WITH DIRECT LDL IF TG IS HIGH Lab Routine Hyperlipidemia with target LDL less than 70 01/02/2024 9:44 AM EDT CBC WITH WBC DIFFERENTIAL AND ANEMIA REFLEX WORKUP Lab Routine Type 2 diabetes mellitus with stage 3b chronic kidney disease, without long-term current use of insulin (HCC) 01/02/2024 9:44 AM EDT 25-HYDROXY VITAMIN D Lab Routine Vitamin D deficiency 01/02/2024 9:44 AM EDT Scheduled Orders Name Type Priority Associated Diagnoses Orde r Schedule LIPID PANEL WITH DIRECT LDL IF TG IS HIGH Lab Routine Hyperlipidemia with target LDL less than 70 Expected: 01/02/2024, Expires: 01/01/2025 CBC WITH WBC DIFFERENTIAL AND ANEMIA REFLEX WORKUP Lab Routine Type 2 diabetes mellitus with stage 3b chronic kidney disease, without long-term current use of insulin (HCC) Expected: 01/02/2024 (Approximate), Expires: 01/01/2025 25-HYDROXY VITAMIN D Lab Routine Vitamin D deficiency Expected: 01/02/2024 (Approximate), Expires: 01/01/2025 Scheduled Referrals Name Type Priority Associated Diagnoses Orde r Schedule ADULT/PEDS OPHTHALMOLOGY/OPTOM ETRY REFERRAL OP Referral Within 10 days (routine) Type 2 diabetes mellitus with stage 3b chronic kidney disease, without long-term current use of insulin (HCC) Ordered: 01/02/2024 Health Maintenance Due Date Last Done Comments DTap/Tdap Vaccines (1 - Tdap) 1954 Zoster Vaccines (1 of 2) 10/14/1987 Adult Wellness Visit 10/14/2003 Depression Screening 12/04/2018 12/04/2017 DXA Scan 09/28/2022 09/28/2020, 02/28, 08/02/2015, Additional history exists Diabetic Eye Exam 12/20/2022 12/20/2021, , 03/14/2016, Additional history exists Albumin/Creatinine Ratio 04/30/202304/30/2 023, 04/04/2021, 09/28/2020, Additional history exists CKD PHOS USE SMARTSET 61131 04/30/202306/2022, 04/10/2022, 04/04/2021, Additional history exists CKD HGB USE SMARTSET 41061 05/28/202305/28, 05/28/2022, 05/14/2022, Additional history exists COVID-19 [...] MEDICATION NEEDED FOR OSTEOPOROSIS (REFER TO SMARTSET #1496) Addressed 01/28/2017 (Refused) Overridden wi th the intention of not completing the topic VITAMIN D LEVEL ONCE IN A LIFETIME-USE SMARTSET# 02799 Completed 04/04/2021, 09/27/2020, 02/07/2020, Additional history exists [...] this encounter Medical Devices Implanted Type Area Solid Waste Collection Worker Device Identifier Shelf Expiration Date Model / Serial / Lot Galaxy Xtrasoft 2.5 X 5 Coil Implanted:Qty: 1 on 02/03/2012 at OR [facility] N/A: Head [employer] 07/03/2013 / [id number] / [id number] documented as of this encounter Visit Diagnoses Diagnosis Type 2 diabetes mellitus with hemoglobin A1c goal of less than 8.0% (HCC)- Primary Type 2 diabetes mellitus with stage 3b chronic kidney disease, without long-term current use of insulin (HCC) Hyperlipidemia with target LDL less than 70 Other and unspecified hyperlipidemia Dementia without behavioral disturbance (HCC) Dementia, unspecified, without behavioral disturbance Essential hypertension with goal blood pressure less than 140/90 Vitamin D deficiency Unspecified vitamin D deficiency History of NE (myocardial infarction) Old myocardial infarction documented in this encounter Advance Directives * [...] Power of Attor eleanor? No Care Teams Warehouse Associate Relationship Specialty Start Date End Date Zainab Hernodn DO [address] [place] [address] [place] [phone] PCP - General Internal Medicine 01/01/17 documented as of this encounter"
--- OUTSIDE RECORDS SUMMARY | 2024-04-11 12:19 | External Medical Summary ---
Author Name Unknown Address Unknown Organization K01:[facility] [address] [place] [address] Laboratory Report Ordering Provider Test Date Status KEYON RASCON 01/02/2024 09:44:53 Final Observation Date Value Abnormality Reference (Units ) Status Phosphate 01/02/2024 09:44:53 3.9 2.5-4.8 (m g/dL) Final Performing Location [facility] - [address] [place] [address]
--- OUTSIDE RECORDS SUMMARY | 2024-04-11 12:20 | External Medical Summary ---
Author Name Unknown Address Unknown Organization [id number][place] [place] [address] [facility] [address] Laboratory Report Ordering Provider Test Date Status ANALIA TRIVEDI 11/12/2023 09:29:52 Aurea l Observation Date Value Abnormality Reference (Units ) Status BUN 11/12/2023 09:29:52 19 6-20 (mg/dL) Final Creatinine 11/12/2023 09:29:52 1.2 Above high normal 0.5-1.0 (mg/dL) Final Glomerular filtration rate/1.73 sq M.predicted [Volume Rate/Area] in Serum, Plasma or Blood by Creatinine-based formula (CKD-EPI) 11/12/2023 09:29:52 44 Below low normal >=60 (mL/min) Final eGFR is calculated based on the CKD-EPI 2020 equation. Sodium 11/12/2023 09:29:52 139 135-146 (m mol/L) Final Potassium 11/12/2023 09:29:52 4.7 3.5-5.1 (m mol/L) Final Cl 11/12/2023 09:29:52 105 98-107 (mm ol/L) Final CO2 11/12/2023 09:29:52 19 Below low normal 22- 32 (mmol/L) Final Anion gap 11/12/2023 09:29:52 15 7-15 (mmol /L) Final Glucose 11/12/2023 09:29:52 144 Above high normal 70 -120 (mg/dL) Final Calcium 11/12/2023 09:29:52 9.6 8.4-10.2 ( mg/dL) Final Performing Location [facility] [place] [address] [place] [place] [address]
--- OUTSIDE RECORDS SUMMARY | 2024-04-11 12:20 | External Medical Summary | Summary of Care ---
Author Name Unknown Organization [facility] Address [address] [facility] [place] [address] Phone [phone] Care Team Providers Care Maintenance Technician 2Nd Shift Name Role Phone Zainab Herndon Primary Care Provider [phone] Reason for Visit * Reason Comments Outpatient Testing Encounter Details Date Type Department Care Team (Late st Contact Info) Description 11/12/2023 9:30 AM EDT Laboratory Laboratory [address] [place] [phone] [place] [address] Arrived Allergies No known active allergiesdocumented as of this encounter (statuses as of 11/12/2023) Medications Medication Sig Dispensed Refills Start Date End Date Status Aspirin Low Dose 81 MG Oral Tablet Delayed Release Take 1 Tablet by mouth in the morning. 04/11/2022 Active Cepacol 15-2.3 MG Mouth/Throat Lozenge (Benzocaine-Menthol) Apply to the mouth or throat . Active Docusate Sodium 100 MG Oral Capsule (Colace) Take 1 Capsule by mouth 2 times a day as needed for Constipation. Active Atorvastatin Calcium 10 MG Oral Tablet (Lipitor) Take 1 Tablet by mouth in the morning. 90 Tablet 3 08/06/2022 Active Pantoprazole Sodium 40 MG Oral Tablet Delayed Release (Protonix)Indication s:History of non-ST elevation myocardial infarction (NSTEMI) Take 1 Tablet by mouth at bedtime. 90 Tablet 3 11/01/2022 Active Rollator Ultra-Light 1 Rollator with hand brakes [...] the morning. 90 Tablet 3 10/28/2023 Active predniSONE 20 MG Oral Tablet (Deltasone)Indicatio ns:Hip pain, left Take 2 Tablets by mouth in the morning for 5 days. 10 Tablet 11/12/2023 11/17/2023 Active documented as of this encounter (statuses as of 11/12/2023) Active Problems Problem Noted Date Diagnosed Date [...] as of this encounter (statuses as of 11/12/2023) Resolved Problems Problem Noted Date Diagnosed Date [...] 01/09/2015 Memory deficits 03/13/2012 03/28/2020 Fall at alf 03/13/2012 012 Slow transit constipation 03/11/2012 SAH (subarachnoid hemorrhage) 02/03/2012 01/28/2017 Hypokalemia 02/03/2012 03/13/2012 GERD (gastroesophageal reflux disease) 07/17/2016 Major depressive disorder Overview: ICD-10 update of inactive term Subarachnoid hemorrhage 02/26 Cerebral aneurysm 01/28/2017 HTN, goal below 130/80 01/21 Type II or unspecified type diabetes mellitus without mention of complication, not stated as uncontrolled 03/13/2012 documented as of this encounter (statuses as of 11/12/2023) Immunizations Name Administration Dates Next Due COVID-19 mRNA, LNP-s, No Pre serve, 2-Dose Series (Moderna) 08/15/2020,07/11/2020 Pneumococcal Conjugate Vacc, 13 Valent (Prevnar) 07/04/2014 Pneumococcal Polysaccharide PPV23 (Pneumovax) 09/28/2008 Season Influenza, Quad, PF, Adjuvanted, 65+ Yrs, IM (FLUAD) 02/07/2020 Seasonal Influenza, PF, 6 M & above, IM , (FluLaval or Fluzone) 03/12/2019,12/31/2017,01/28/2017 Seasonal Influenza, Quadriva lent Hd (Fluzone Hd) 04/04/2021 Seasonal Influenza, Quadriva lent Hd, 65+ Yrs 03/19/2022 Seasonal Influenza, Quadriva lent, No Preserve, IM 01/17/2016,02/13/2015 Seasonal Influenza, Split, I IV3, With Preserve, Inj 12/27/2013,03/15/2013,01/27/2012 Seasonal Influenza, Trivalen t, High Dose, No Preserve, IM 03/22/2019 documented as of this encounter Social History [...] Care Team (Late st Contact Info) Description 11/27/2023 12:30 PM EDT Office Visit Orthopaedics [address] [phone] Jm Burkett MD [address] [place] [address] 01/02/2024 8:50 AM EDT Office Visit Family Medicine [address] [phone] Zainab Herndon DO [address] [place] [address] [place] [address] Health Maintenance Due Date Last Done Comments DTaP,Tdap,and Td Vaccines (1 - Tdap) 1954 Zoster Vaccines (1 of 2) 10/14/1987 Depression Screening 12/04/2018 12/04/2017 DXA Scan 09/28/2022 09/28/2020, 02/28, 08/02/2015, Additional history exists Diabetic Eye Exam 12/20/2022 12/20/2021, , 03/14/2016, Additional history exists COVID-19 Vaccine ( season) 2022 08/15/2020, 07/11/2020 Albumin/Creatinine Ratio 04/30/2023 023, 04/04/2021, 09/28/2020, Additional history exists CKD PHOS USE SMARTSET 09935 04/30/202306/2022, 04/10/2022, 04/04/2021, Additional history exists HbA1c 05/04/2023 11/01/2022, 06/2022, 04/10/2022, Additional history exists CKD HGB USE SMARTSET 64308 05/28/202305/28, 05/28/2022, 05/14/2022, Additional history exists Diabetic Foot Exam 11/02/2023 11/01/2022, 0 10/03/2021, 03/28/2020, Additional history exists Influenza Vaccine (FLU shot) (#1) 2023 03/19/2022, 04/04/2021, 02/07/2020, Additional history exists Pneumococcal Vaccine: 65+ Years Completed 07/04/2014, 09/28/2008 *BISPHONATE OR OTHER ACCEPTABLE MEDICATION NEEDED FOR OSTEOPOROSIS (REFER TO SMARTSET #1146) Addressed 01/28/2017 (Refused) Overridden wi th the intention of not completing the topic VITAMIN D LEVEL ONCE IN A LIFETIME-USE SMARTSET# 16765 Completed 04/04/2021, 09/27/2020, 02/07/2020, Additional history exists [...] encounter Medical Devices Implanted Type Area Machine Operator Transplanter Device Identifier Shelf Expiration Date Model / Serial / Lot Galaxy Xtrasoft 2.5 X 5 Coil Implanted:Qty: 1 on 02/03/2012 at [facility] N/A: Head [employer] 07/03/2013 / [id number] / [id number] documented as of this encounter Advance Directives [...] Power of Attor eleanor? No Care Teams Maintenance Technician 2Nd Shift Relationship Specialty Start Date End Date Zainab Herndon DO [address] [place] [address] [place] [address] PCP - General Internal Medicine 01/01/17 documented as of this encounter
--- OUTSIDE RECORDS SUMMARY | 2024-04-11 12:20 | External Medical Summary | Summary of Care ---
Author Name Unknown Organization [facility] Address [address] [place] [facility] [place] [address] Phone [phone] Care Team Providers Care Phlebotomy Coordinator Name Role Phone Zainab Herndon DO Primary Care Provider Reason for Visit * Reason Onset Date Comments Appointment 10/31/2023 Advice 10/31/2023 Encounter Details Date Type Department Care Team (Late st Contact Info) Description 10/31/2023 Telephone Family Medicine [address] [phone] Zainab Herndon DO [address] [place], [place] [address] [address] Appointment; Advice Allergies No known active allergiesdocumented as of this encounter (statuses as of 11/11/2023) Medications Medication Sig Dispensed Refills Start Date [...] the morning. 90 Tablet 3 10/28/2023 Active documented as of this encounter (statuses as of 11/11/2023) Active Problems Problem Noted Date Diagnosed Date [...] as of this encounter (statuses as of 11/11/2023) Resolved Problems Problem Noted Date Diagnosed Date [...] 01/09/2015 Memory deficits 03/13/2012 03/28/2020 Fall at halfway 03/13/2012 012 Slow transit constipation 03/11/2012 SAH (subarachnoid hemorrhage) 02/03/2012 01/28/2017 Hypokalemia 02/03/2012 03/13/2012 GERD (gastroesophageal reflux disease) 07/17/2016 Major depressive disorder Overview: ICD-10 update of inactive term Subarachnoid hemorrhage 02/26 Cerebral aneurysm 01/28/2017 HTN, goal below 130/80 01/21 Type II or unspecified type diabetes mellitus without mention of complication, not stated as uncontrolled 03/13/2012 documented as of this encounter (statuses as of 11/11/2023) Immunizations Name Administration Dates Next Due COVID-19 [...] encounter Miscellaneous Notes * Telephone Encounter - Monica Alas LPN - 11/11/2023 4:13 PM EDT Left message for Sana to return my call. Pt is scheduled with ortho on 11/27/23. Please schedule with someone in our office if they'd like pt to be seen before that. * Telephone Encounter - Zainab Herndon DO - 11/10/2023 11:57 AM EDT ER records reviewed. They had advised she follow up with orthopedics. Has she been seen? If not, recommend appt in our office for evaluation if she is still having pain. * Telephone Encounter - Zainab Herndon DO - 11/06/2023 12:53 PM EDT Cannot advise until I review records, which are not available. Await records. * Telephone Encounter - Mar Puga RN - 11/04/2023 4:39 PM EDT I will req ER Records * Telephone Encounter - Rosa Alas OSA - 11/03/2023 2:15 PM EDT TeughterSana is calling again. Pt was taken to [facility] ED in [place] on 10/31. Pt was told to follow up with Ortho after ED visit. Pt is in a lot of pain and family would like to know if a pain relieving mediation could be suggested/ordered. ED doctor did not prescribe any pain meds. Please reach out to Sana at [phone]. Thank you, ELANA Ayala * Telephone Encounter - Mar Puga RN - 11/01/2023 10:33 AM EDT I called granddaughter and advised they take her to [facility] ER today, to rule out fractures, granddaughter is agreeable * Telephone Encounter - Daya Rodriguez OSA - 10/31/2023 3:05 PM EDT Good afternoon, Patient's granddaughter calling again regarding above msg. She is very concerned as her grandmotheris 88 yrs old and in a lot of pain. Due to not being able to walk she has not been able to walk to restroom so she has been having accidents on her bed. Advised granddaughter to take her to near or but she advised that grandmother does not want to go due to last horrible experience she had. Gr anddaughter would like a callback if possible. Vanessa, Daya [place] * Telephone Encounter - Sia Kaiser OSA - 10/31/2023 11:54 AM EDT No Appointments Available Patient declined appointments?: No What Visit Type is needed? Acute If Acute Visit Type is needed, were surrounding clinics offered to patient (Yes/No)? Yes Was patient offered appointments with other available providers (Yes/No)? Yes See Call Details? (Yes or No): Yes Patient can't walk and is in pain after a fall please make next available appt. documented in this encounter Plan of Treatment Upcoming Encounters Date Type Department Care Team (Late st Contact Info) Description 11/27/2023 12:30 PM EDT Office Visit Orthopaedics [address] [phone] Jm Burkett MD [address] [place] [address] 01/02/2024 8:50 AM EDT Office Visit Family Medicine [address] [place] [phone] [place] [address] Health Maintenance Due Date Last Done Comments DTaP,Tdap,and Td Vaccines (1 - Tdap) 1954 Zoster Vaccines (1 of 2) 10/14/1987 Depression Screening 12/04/2018 12/04/2017 DXA Scan 09/28/2022 09/28/2020, 02/28, 08/02/2015, Additional history exists Diabetic Eye Exam 12/20/2022 12/20/2021, , 03/14/2016, Additional history exists COVID-19 Vaccine (3 - 2023-24 season) 2022 08/15/2020, 07/11/2020 Albumin/Creatinine Ratio 04/30/2023 023, 04/04/2021, 09/28/2020, Additional history exists CKD PHOS USE SMARTSET 71418 04/30/2023 01/0 06/2022, 04/10/2022, 04/04/2021, Additional history exists HbA1c 05/04/2023 11/01/2022, 01/0 06/2022, 04/10/2022, Additional history exists CKD HGB USE SMARTSET 08682 05/28/202305/28, 05/28/2022, 05/14/2022, Additional history exists Diabetic Foot Exam 11/02/2023 11/01/2022, 0 10/03/2021, 03/28/2020, Additional history exists Influenza Vaccine (FLU shot) (#1) 2023 03/19/2022, 04/04/2021, 02/07/2020, Additional history exists Pneumococcal Vaccine: 65+ Years Completed 07/04/2014, 09/28/2008 *BISPHONATE OR OTHER ACCEPTABLE MEDICATION NEEDED FOR OSTEOPOROSIS (REFER TO SMARTSET #1148) Addressed 01/28/2017 (Refused) Overridden wi th the intention of not completing the topic VITAMIN D LEVEL ONCE IN A LIFETIME-USE SMARTSET# 35985 Completed 04/04/2021, 09/27/2020, 02/07/2020, Additional history exists [...] this encounter Medical Devices Implanted Type Area Silviculturist Device Identifier Shelf Expiration Date Model / Serial / Lot Galaxy Xtrasoft 2.5 X 5 Coil Implanted:Qty: 1 on 02/03/2012 at [place] [facility] [place] N/A: Head [employer] 07/03/2013 / [id number] / [id number] documented as of this encounter Advance Directives [...] Power of Attor eleanor? No Care Teams Phlebotomy Coordinator Relationship Specialty Start Date End Date Zainab Herndon DO [address] [place] [address] [place] [id number] PCP - General Internal Medicine 01/01/17 documented as of this encounter
--- OUTSIDE RECORDS SUMMARY | 2024-04-11 12:20 | External Medical Summary | Summary of Care ---
Author Name Unknown Organization [facility] Address [address] [facility] [place] [address] Phone [phone] Care Team Providers Care Emergency Worker Name Role Phone Zainab Herndon DO Primary Care Provider Reason for Visit * Reason Onset Date Comments Appointment 10/31/2023 Advice 10/31/2023 Encounter Details Date Type Department Care Team (Late st Contact Info) Description 10/31/2023 Telephone Family Medicine [address] [phone] Zainab Herndno DO [address] [place], [place] [address] [address] Appointment; Advice Allergies No known active allergiesdocumented as of this encounter (statuses as of 11/10/2023) Medications Medication Sig Dispensed Refills Start Date [...] as of this encounter (statuses as of 11/10/2023) Active Problems Problem Noted Date Diagnosed Date [...] as of this encounter (statuses as of 11/10/2023) Resolved Problems Problem Noted Date Diagnosed Date [...] as of this encounter (statuses as of 11/10/2023) Immunizations Name Administration Dates Next Due COVID-19 [...] encounter Miscellaneous Notes * Telephone Encounter - Zainab Herndon DO [...] Alas OSA - 11/03/2023 2:15 PM EDT angelicaSana steel is calling again. Pt was taken to [facility] ED in [place] on 10/31. Pt was told to follow up with Ortho after ED visit. Pt is in a lot of pain and family would like to know if a pain relieving mediation could be suggested/ordered. ED doctor did not prescribe any pain meds. Please reach out to Sana at [phone]. Thank you, ELANA [place] * Telephone Encounter - Mar Puga RN - 11/01/2023 10:33 AM EDT I called granddaughter and advised they take her to [facility] ER today, to rule out fractures, granddamilvia is agreeable * Telephone Encounter - Daya [...] anddaughter would like a callback if possible. Kindly, Daya [place] * Telephone Encounter - Sia [...] 11/27/2023 12:30 PM EDT Office Visit Orthopaedics [address] [place] [place] [address] Jm Burkett MD [address] [place] [address] 01/02/2024 8:50 AM EDT Office Visit Family Medicine [address] [place] [phone] Zainab Herndon [address] [place] [address] Health Maintenance Due Date Last Done Comments DTaP,Tdap,and Td Vaccines (1 - Tdap) 1954 Zoster Vaccines (1 of 2) 10/14/1987 Depression Screening 12/04/2018 12/04/2017 DXA Scan 09/28/2022 09/28/2020, 02/28, 08/02/2015, Additional history exists Diabetic Eye Exam 12/20/2022 12/20/2021, , 03/14/2016, Additional history exists COVID-19 Vaccine ( season) 2022 08/15/2020, 07/11/2020 Albumin/Creatinine Ratio 04/30/20232 023, 04/04/2021, 09/28/2020, Additional history exists CKD PHOS USE SMARTSET 66610 04/30/2023 01/0 06/2022, 04/10/2022, 04/04/2021, Additional history exists HbA1c 05/04/2023 11/01/2022, 01/0 06/2022, 04/10/2022, Additional history exists CKD HGB USE SMARTSET 37202 05/28/202305/28, 05/28/2022, 05/14/2022, Additional history exists Diabetic [...] D LEVEL ONCE IN A LIFETIME-USE SMARTSET# 22080 Completed 04/04/2021, 09/27/2020, 02/07/2020, Additional history exists [...] this encounter Medical Devices Implanted Type Area Plastic Cablemaking Machine Operator Device Identifier Shelf Expiration Date Model / Serial / Lot Galaxy Xtrasoft 2.5 X 5 Coil Implanted:Qty: 1 on 02/03/2012 at [place] [facility] [place] N/A: Head [employer] 07/03/2013 / [id number] / [id number] documented as of this encounter Advance Directives [...] Power of Attor eleanor? No Care Teams Emergency Worker Relationship Specialty Start Date End Date Zainab Herndon DO [address] [place] [address] [place] [address] PCP - General Internal Medicine 01/01/17 documented as of this encounter
--- OUTSIDE RECORDS SUMMARY | 2024-04-11 12:20 | External Medical Summary ---
Author Name Unknown Address Unknown Organization K01:[facility] [place] - [address] [facility] [facility] [address] [facility] [address] Laboratory Report Ordering Provider Test Date Status ANALIA TRIVEDI 11/12/2023 09:29:52 Aurea l Observation Date Value Abnormality Reference (Units ) Status HbA1C 11/12/2023 09:29:52 7.1 Above high normal 4. 0-5.6 (%) Final The use of HbA1c to monitor glycemic status is based on normal hemoglobin and HbA composition. This test should not be used in patients with abnormal hemoglobin that affects the half life of the red blood cell or the in vivo glycation rates. Glucose, estimated average 11/12/2023 09:29:52 157 Above high normal <126 (mg/dL) Lang al Performing Location [facility] [place] - [address] [facility] [address]
--- OUTSIDE RECORDS SUMMARY | 2024-04-11 12:20 | External Medical Summary | Summary of Care ---
Author Name Unknown Organization [facility] Address [address] [facility] [place] [address] Phone [phone] Care Team Providers Care Pattern Stamper Name Role Phone Zainab Herndon Primary Care Provider [phone] Reason for Referral * Evaluate & Treat - Unlimited Visits (Within 10 days (routine)) - Pending Review Specialty Diagnoses / Procedures Referred By Leandro dutta Referred To Contact HOME CARE / Home Care Diagnoses Hip pain, left Daniel Lantigua MD [address] [place] [address] [place] [address] Referral ID Status Reason Start Date Expiration Date Visits Requested Visits Authorized [id number] Pending Review Specialty Services Required 11/12/[phone] Question Answer Referral Priority Within 10 days (routine) Where should this appointment be scheduled? Gloria Comments Documentation of Fvne-[id number]-[id number] Encounter Addendum Patient Name: Sandra Mcleod I certify that this patient is under my care and that I, or a nurse practitioner or physician's assistant finance director working with me, had a [id number] encounter that meets the physician [id number] encounter requirements with this patient on: 11/11 The encounter with the patient was in [...] patient after discharge should complete this section): Primary Care Physician to follow home care plan of care after discharge: My clinical findings support the need for the above services because: decreased ambulation Further, I certify that my clinical findings support that this patient is homebound (i.e. Absences from home require considerable and taxing effort and are for medical reasons or congregational services or infrequently or of short duration when for other reason) because: Physician Signature: Date of Signature: Physician Printed Name: Daniel Lantigua MD Reason for Visit * Reason Comments Emergency Department Follow-Up Encounter Details Date Type Department Care Team (Late st Contact Info) Description 11/12/2023 8:20 AM EDT Office Visit Family Medicine [address] [place] [phone] Daniel Lantigua MD [address] [place] [address] [place] [phone] Hip pain, left*; Type 2 diabetes mellitus with stage 3b chronic kidney disease, without long-term current use of insulin (HCC) Allergies No known active allergiesdocumented as of this encounter (statuses as of 11/13/2023) Medications Medication Sig Dispensed Refills Start Date [...] as of this encounter (statuses as of 11/13/2023) Active Problems Problem Noted Date Diagnosed Date [...] as of this encounter (statuses as of 11/13/2023) Resolved Problems Problem Noted Date Diagnosed Date [...] 01/09/2015 Memory deficits 03/13/2012 03/28/2020 Fall at retirement 03/13/2012 012 Slow transit constipation 03/11/2012 SAH (subarachnoid hemorrhage) 02/03/2012 01/28/2017 Hypokalemia 02/03/2012 03/13/2012 GERD (gastroesophageal reflux disease) 07/17/2016 Major depressive disorder Overview: ICD-10 update of inactive term Subarachnoid hemorrhage 02/26 Cerebral aneurysm 01/28/2017 HTN, goal below 130/80 01/21 Type II or unspecified type diabetes mellitus without mention of complication, not stated as uncontrolled 03/13/2012 documented as of this encounter (statuses as of 11/13/2023) Immunizations Name Administration Dates Next Due COVID-19 [...] Sign Reading Time Taken Comments Blood Pressure 148/70 11/12/2023 8:59 AM EDT Pulse 67 11/12/2023 8:59 AM EDT Temperature 35.9 C (96.6 F) 11/12/2023 8:59 AM ED T Respiratory Rate - - Oxygen Saturation 99% 11/12/2023 8:59 AM EDT Inhaled Oxygen Concentration - - Weight 71.6 kg (157 lb 12.8 oz) 11/12/2023 8:59 AM EDT Height - - Body Mass Index 30.82 10/03/2021 2:11 PM EDT documented in this encounter Progress Notes * Daniel Lantigua MD - 11/12/2023 9:12 AM EDT Subjective: HPI: Sandra Mcleod is a 88 year old female with hx of DMII, HLD, HTN, Osteoporosis, CKD III, dementia seen for Pt was late to the initial appt - grand daughter refused to set up another clinic visit therefore double booked the pt Recent ER visit for the L hip pain - xray showed no fracture - started 3 months ago - denied any fall - localized to L mid gluteal area and thigh - no swelling - due to pain pt is having ambulatory dysfunction - doing ice and voltaren gel ---- no change Patient Active Problem List Diagnosis Hyperlipidemia with [...] Current Outpatient Medications Medication Sig Dispense Refill Aspirin Low Dose 81 MG Oral Tablet Delayed Release Take 1 Tablet by mouth in the morning. Cepacol 15-2.3 MG Mouth/Throat Lozenge (Benzocaine-Menthol) Apply to the mouth or throat . Docusate Sodium 100 MG Oral Capsule (Colace) Take 1 Capsule by mouth 2 times a day as needed for Constipation. Atorvastatin Calcium 10 MG Oral Tablet (Lipitor) Take 1 Tablet by mouth in the morning. 90 Tablet 3 Pantoprazole Sodium 40 MG Oral Tablet Delayed Release (Protonix) Take 1 Tablet by mouth at bedtime.90 Tablet 3 Rollator Ultra-Light 1 Rollator with [...] mouth in the morning. 90 Tablet 3 predniSONE 20 MG Oral Tablet (Deltasone) Take 2 Tablets by mouth in the morning for 5 days. 10 Tablet 0 No current facility-administered medications for this visit. Past Medical History: Diagnosis Date Abnormality of gait 03/13/2012 Anemia 03/13/2012 Balance problems 07/14/2013 Cerebral aneurysm Constipation, slow transit 07/14/2013 Depressive disorder, not elsewhere classified DM type 2, goal A1c below 7 03/13/2012 DM type 2, goal A1C below 8.0 09/15/2013 Essential hypertension with goal blood pressure less than 140/90 01/17/2016 Fall at retirement 03/13/2012 Gastroesophageal reflux disease without esophagitis 01/17/2016 [...] performed by Alan Hernandez MD at OR [facility] PL[facility] CATHETER IN ARTERIES 06/30/2013 CATHETER PLACEMENT, BRACHIOCEPHALIC, THIRD ORDER BRANCH performed by Alan Hernandez MD at OR [facility] REMOVE CATARACT, INSERT LENS PROSTH 09/27/13 left eye - Dr. Iqbal REMOVE CATARACT, INSERT LENS PROSTH 11/30/13 right eye REMOVE GALLBLADDER Dr Silvestre TOTAL ABD HYSTERECTOMY W/WO REMOVAL OF TUBE(S) 1970 took ovaries too, Friday in [place] Review of patient's allergies indicates: No Known Allergies Family History Problem Relation Name Age of Onset Alcohol and Other Disorders Associated Sister Lung Disorder Father Other (Other) Brother in MVA Social History Tobacco Use Smoking status: Never Smokeless tobacco: Never Substance Use Topics Alcohol use: No Vaping/E-Cigarette Use Vaping/E-Cigarette Substances Vaping/E-Cigarette Devices ROS: -Per HPI OBJECTIVE: BP 148/70 | Pulse 67 | Temp 35.9 C (96.6 F) | Wt 71.6 kg (157 lb 12.8 oz) | SpO2 99% | BMI 30.82 kg/m | BSA 1.74 m PHYSICAL EXAM: Vitals are reviewed MSK: No ttp of the L spine, Mild TTP of the L mid gluteal area, mild TTP of the greater trochanteric area ASSESSMENT/PLAN: Will get labs done today PT referral Symptoms could be 2/2 Hip DJD flare and bursitis - will do prednisone PO for now - labs today Hip pain, left (Primary) - predniSONE 20 MG Oral Tablet (Deltasone); Take 2 Tablets by mouth in the morning for 5 days. - HOME HEALTH REFERRAL OP Type 2 diabetes mellitus with stage 3b chronic kidney disease, without long-term current use of insulin (HCC) - HEMOGLOBIN A1C - BASIC METABOLIC PANEL I spent a total of 30-39 minutes (exact time 33 mins) on the date of service in preparation, delivery, and documentation of the care provided to Sandra Mcleod excluding any time spent in the performance of separately billed services. Daniel Lantigua MD Family medicine, [address] [address] documented in this encounter Nursing Notes * Chery Goldsmith CMA - 11/12/2023 8:57 AM EDT She is here for an emergency room follow up. She is having left hip pain. documented in this encounter Plan of Treatment Upcoming Encounters Date Type Department Care Team (Late st Contact Info) Description 11/27/2023 12:30 PM EDT Office Visit Orthopaedics [address] [phone] Jm Burkett MD [address] [place] [address] 01/02/2024 8:50 AM EDT Office Visit Family Medicine [address] [phone] Zain[address] [place] [address] Scheduled Referrals Name Type Priority Associated Diagnoses Orde r Schedule HOME HEALTH REFERRAL OP Referral Within 10 days (routine) Hip pain, left Ordered: 11/12/2023 Health Maintenance Due Date Last Done Comments DTaP,Tdap,and Td Vaccines (1 - Tdap) 1954 Zoster Vaccines (1 of 2) 10/14/1987 Depression Screening 12/04/2018 12/04/2017 DXA Scan 09/28/2022 09/28/2020, 02/28, 08/02/2015, Additional history exists Diabetic Eye Exam 12/20/2022 12/20/2021, , 03/14/2016, Additional history exists COVID-19 Vaccine ( season) 2022 08/15/2020, 07/11/2020 Albumin/Creatinine Ratio 04/30/202304/30/ 023, 04/04/2021, 09/28/2020, Additional history exists CKD PHOS USE SMARTSET 60261 04/30/2023 01/0 06/2022, 04/10/2022, 04/04/2021, Additional history exists CKD HGB USE SMARTSET 85834 05/28/202305/28, 05/28/2022, 05/14/2022, Additional history exists Diabetic Foot Exam 11/02/2023 11/01/2022, 0 10/03/2021, 03/28/2020, Additional history exists Influenza Vaccine (FLU shot) (#1) 2023 03/19/2022, 04/04/2021, 02/07/2020, Additional history exists HbA1c 05/14/2024 11/12/2023, 07/0 10/2022, 04/30/2022, Additional history exists Pneumococcal Vaccine: 65+ Years Completed 07/04/2014, 09/28/2008 *BISPHONATE OR OTHER ACCEPTABLE MEDICATION NEEDED FOR OSTEOPOROSIS (REFER TO SMARTSET #1146) Addressed 01/28/2017 (Refused) Overridden wi th the intention of not completing the topic VITAMIN D LEVEL ONCE IN A LIFETIME-USE SMARTSET# 53666 Completed 04/04/2021, 09/27/2020, 02/07/2020, Additional history exists [...] this encounter Medical Devices Implanted Type Area Program Administrator Device Identifier Shelf Expiration Date Model / Serial / Lot Galaxy Xtrasoft 2.5 X 5 Coil Implanted:Qty: 1 on 02/03/2012 at OR [facility] N/A: Head LIA LAYNE 07/03/2013 / [id number] / [id number] documented as of this encounter Procedures Procedure Name Priority Date/Time Associated Diagnosis Comments HEMOGLOBIN A1C Routine 11/12/2023 9:29 AM EDT Type 2 diabetes mellitus with stage 3b chronic kidney disease, without long-term current use of insulin (HCC) BASIC METABOLIC PANEL Routine 11/12/2023 9:29 AM EDT Type 2 diabetes mellitus with stage 3b chronic kidney disease, without long-term current use of insulin (HCC) documented in this encounter Results * (ABNORMAL) BASIC METABOLIC PANEL (11/12/2023 9:29 AM EDT) BUN 19 6 - 20 mg/dL 11/13/2023 1:02 AM EDT LABORATORY C Creatinine 1.2(H) 0.5 - 1.0 mg/dL 11/13/2023 1:02 AM EDT LABORATORY [facility] Estimated Glomerular Filtration Rate 44(L) >=60 mL/min 11/13/2023 1:02 AM EDT LABORATORY C Comment:eGFR is calculated b ased on the CKD-EPI 2020 equation. Sodium 139 135 - 146 mmol/L 11/13/2023 1:02 AM EDT LABORATORY C Potassium 4.7 3.5 - 5.1 mmol/L 11/13/2023 1:02 AM EDT LABORATORY C Chloride 105 98 - 107 mmol/L 11/13/2023 1:02 AM EDT LABORATORY C CO2 19(L) 22 - 32 mmol/L 11/13/2023 1:02 AM EDT LABORATORY C Anion Gap 15 7 - 15 mmol/L 11/13/2023 1:02 AM EDT LABORATORY C Glucose 144(H) 70 - 120 mg/dL 11/13/2023 1:02 AM EDT LABORATORY C Calcium 9.6 8.4 - 10.2 mg/dL 11/13/2023 1:02 AM EDT LABORATORY [facility] Blood Venous blood specimen / Unknown Venipuncture / Unknown 11/12/2023 9:29 AM EDT 11/12/2023 9:29 AM EDT Daniel Lantigua MD LAB BLOOD ORD ERABLES Performing Organization Address [facility] de Phone Number LABORATORY [facility] [address] [place] [address] * (ABNORMAL) HEMOGLOBIN A1C (11/12/2023 9:29 AM EDT) Hemoglobin A1C 7.1(H) 4.0 - 5.6 % 11/13/2023 1:16 AM EDT LABORATORY [facility] Comment:The use of HbA1c to monitor glycemic status is based on normal hemoglobin and HbA composition. This test should not be used in patients with abnormal hemoglobin that affects the half life of the red blood cell or the in vivo glycation rates. Estimated Average Glucose 157(H) <126 mg/dL 11/13/2023 1:16 AM EDT LABORATORY [facility] Blood Venous blood specimen / Unknown Venipuncture / Unknown 11/12/2023 9:29 AM EDT 11/12/2023 9:29 AM EDT Daniel Lantigua MD LAB BLOOD ORD ERABLES Performing Organization Address [facility] Phone Number LABORATORY [address] [address] documented in this encounter Visit Diagnoses Diagnosis Hip pain, left- Primary Pain in joint, pelvic region and thigh Type 2 diabetes mellitus with stage 3b [...] Power of Attor eleanor? No Care Teams Pattern Stamper Relationship Specialty Start Date End Date Zainab Herndon DO [address] [place] [address] [place] [address] PCP - General Internal Medicine 01/01/17 documented as of this encounter"
--- OUTSIDE RECORDS SUMMARY | 2024-04-11 12:20 | External Medical Summary | Summary of Care ---
Author Name Unknown Organization [facility] Address [address] [place] [address] Phone [phone] Care Team Providers Care Inclusion Specialist Name Role Phone Zainab Herndon DO Primary Care Provider [phone] Encounter Details Date Type Department Care Team (Latest Contact Info) Description 11/01/2023 2:00 PM EDT - 11/01/2023 11:59 PM EDT Hospital Encounter Radiology Film File [address] [place] [address] Discharge Disposition: Home - Self Care Allergies No known active allergiesdocumented as of this encounter (statuses as of 12/03/2023) Medications Medication Sig Dispensed Refills Start Date [...] as of this encounter (statuses as of 12/03/2023) Active Problems Problem Noted Date Diagnosed Date [...] as of this encounter (statuses as of 12/03/2023) Resolved Problems Problem Noted Date Diagnosed Date [...] 01/09/2015 Memory deficits 03/13/2012 03/28/2020 Fall at care home 03/13/2012 012 Slow transit constipation 03/11/2012 SAH (subarachnoid hemorrhage) 02/03/2012 01/28/2017 Hypokalemia 02/03/2012 03/13/2012 GERD (gastroesophageal reflux disease) 07/17/2016 Major depressive disorder Overview: ICD-10 update of inactive term Subarachnoid hemorrhage 02/26 Cerebral aneurysm 01/28/2017 HTN, goal below 130/80 01/21 Type II or unspecified type diabetes mellitus without mention of complication, not stated as uncontrolled 03/13/2012 documented as of this encounter (statuses as of 12/03/2023) Immunizations Name Administration Dates Next Due COVID-19 [...] Team (Late st Contact Info) Description 01/02/2024 8:50 AM EDT Office Visit Family Medicine [address] [place] [phone] [address] [place] [address] 02/05/2024 3:15 PM EDT Office Visit Orthopaedics [address] [place] [phone] Jm Burkett MD [address] [place] [address] Health Maintenance Due Date Last Done Comments [...] Additional history exists CKD PHOS USE SMARTSET 96804 04/30/2023 01/0 06/2022, 04/10/2022, 04/04/2021, Additional history exists CKD HGB USE SMARTSET 49697 05/28/202305/28, 05/28/2022, 05/14/2022, Additional history exists Diabetic [...] D LEVEL ONCE IN A LIFETIME-USE SMARTSET# 46856 Completed 04/04/2021, 09/27/2020, 02/07/2020, Additional history exists [...] this encounter Medical Devices Implanted Type Area Ehs Teacher Device Identifier Shelf Expiration Date Model / Serial / Lot Galaxy Xtrasoft 2.5 X 5 Coil Implanted:Qty: 1 on 02/03/2012 at OR [facility] N/A: Head LIA LAYNE 07/03/2013 / [id number] / [id number] documented as of this encounter Procedures Procedure Name Priority Date/Time Associated Diagnosis Comments RADIOLOGY EXAM - GENERAL RAD (IMAGES ONLY,NO REPORT) Routine 11/01/2023 2:00 PM EDT documented in this encounter Results * RADIOLOGY EXAM - GENERAL RAD (IMAGES ONLY,NO REPORT) (11/01/2023 2:00 PM EDT) 11/01/2023 1:58 PM EDT Narrative Scheduling, Silent - 12/02/2023 9:44 AM EDT This is an imaging study not interpreted or resulted by a [facility] or [facility] contracted radiologist. Amilcar Plaza MD RADIOLOGY (RAD GENER AL) documented in this encounter Advance Directives * [...] Power of Attor eleanor? No Care Teams Inclusion Specialist Relationship Specialty Start Date End Date Zainab Herndon DO [address] [place] [address] [place] [address] PCP - General Internal Medicine 01/01/17 documented as of this encounter
--- OUTSIDE RECORDS SUMMARY | 2024-04-11 12:20 | External Medical Summary | Summary of Care ---
Author Name Unknown Organization [facility] Address [address] [place] [address] Phone [phone] Care Team Providers Care Data Integration Architect Name Role Phone Tarah Ta DO Primary Care Provider Reason for Visit * Reason Onset Date Comments Medication Refill 12/23/2023 Encounter Details Date Type Department Care Team (Late st Contact Info) Description 12/23/2023 Refill Family Medicine [address] [phone] Tarah Ta DO [address] [place] [address] [place] [address] History of non-ST elevation myocardial infarction (NSTEMI) Allergies No known active allergiesdocumented as of this encounter (statuses as of 12/23/2023) Medications Medication Sig Dispensed Refills Start Date End Date Status Aspirin Low Dose 81 MG Oral Tablet Delayed Release Take 1 Tablet by mouth in the morning. 04/11/2022 Active Cepacol 15-2.3 MG Mouth/Throat Lozenge (Benzocaine-Mentho l) Apply to the mouth or throat . Active Docusate Sodium 100 MG Oral Capsule (Colace) Take 1 Capsule by mouth 2 times a day as needed for Constipation. Active Atorvastatin Calcium 10 MG Oral Tablet (Lipitor) Take 1 Tablet by mouth in the morning. 90 Tablet 3 08/06/2022 Active Rollator Ultra-Light 1 Rollator with hand brakes 1 Each 11/01/2022 Active Metoprolol Succinate ER 25 MG Oral Tablet Extended Release 24 Hour (toPROL XL)Indications:Ess ential hypertension with goal blood pressure less than 140/90 TAKE 1/2 TABLET EVERY MORNING 45 Tablet 3 02/10/2023 Active Lisinopril 5 MG Oral Tablet (Prinivil)Indicati [...] at bedtime. 90 Tablet 3 12/23/2023 Active Pantoprazole Sodium 40 MG Oral Tablet Delayed Release (Protonix)Indicati ons:History of non-ST elevation myocardial infarction (NSTEMI) Take 1 Tablet by mouth at bedtime. 90 Tablet 3 11/01/2022 12/23/2023 Discontinued (Refill) documented as of this encounter (statuses as of 12/23/2023) Active Problems Problem Noted Date Diagnosed Date [...] as of this encounter (statuses as of 12/23/2023) Resolved Problems Problem Noted Date Diagnosed Date [...] as of this encounter (statuses as of 12/23/2023) Immunizations Name Administration Dates Next Due COVID-19 [...] Telephone Encounter - Tarah Ta DO - 12/23/2023 2:13 PM EDTSigned Prescriptions: Disp Refills Pantoprazole Sodium 40 MG Oral Tablet Rosalinda*90 Tab*3 Sig: Take 1 Tablet by mouth at bedtime. Authorizing Provider: TARAH TA * Telephone Encounter - Mar Puga RN - 12/23/2023 7:55 AM EDTPending Prescriptions: Disp Refills Pantoprazole Sodium 40 MG Oral Tablet Rosalinda*90 Tab*3 Sig: Take 1 Tablet by mouth at bedtime. * Telephone Encounter - Tana Buck OSA - 12/23/2023 7:21 AM EDT Did you pend patient's preferred pharmacy and medication before forwarding?yes Pharmacy: [facility]-[address]- [place] Pending Prescriptions: Disp Refills Pantoprazole Sodium 40 MG Oral Tablet Del*90 Tab*3 Sig: Take 1 Tablet by mouth at bedtime. Last Visit: 11/12/2023 (in office), Visit date not found (telemedicine) Next Visit: 01/02/2024 If no future appointments scheduled, and last appointment is greater than a year ago, please schedule patient for a follow-up appointment Last date the medication was ordered: 11/01/22 Is this request for a controlled substance?No [...] PM ALT 33 02/07/2020 12:04 PM HGBA1C 7.1 (H) 11/12/2023 09:29 AM HGBA1C 6.9 04/10/2022 12:00 AM HGBA1C 7.7 (H) 02/07/2020 12:04 PM documented in this encounter Plan of Treatment Upcoming Encounters Date Type Department Care Team (Late st Contact Info) Description 01/02/2024 8:50 AM EDT Office Visit Family Medicine [address] [place] [address] Tarah Ta, [address] [place] [address] 02/05/2024 3:15 PM EDT Office Visit Orthopaedics [address] [place] [phone] Jm Burkett MD [address] [place] [address] Health Maintenance Due Date Last Done Comments [...] Additional history exists CKD PHOS USE SMARTSET 60041 04/30/2023 01/0 06/2022, 04/10/2022, 04/04/2021, Additional history exists CKD HGB USE SMARTSET 58931 05/28/202305/28, 05/28/2022, 05/14/2022, Additional history exists Diabetic [...] D LEVEL ONCE IN A LIFETIME-USE SMARTSET# 64725 Completed 04/04/2021, 09/27/2020, 02/07/2020, Additional history exists [...] this encounter Medical Devices Implanted Type Area Aluminum Molder Device Identifier Shelf Expiration Date Model / Serial / Lot Galaxy Xtrasoft 2.5 X 5 Coil Implanted:Qty: 1 on 02/03/2012 at [place] [facility] N/A: Head [employer] 07/03/2013 / [id number] / [id number] documented as of this encounter Visit Diagnoses Diagnosis History of non-ST elevation myocardial infarction (NSTEMI) Old myocardial infarction documented in this encounter [...] Power of Attor eleanor? No Care Teams Data Integration Architect Relationship Specialty Start Date End Date Tarah Ta DO [address] [place] [address] [place] [phone] PCP - General Internal Medicine 01/01/17 documented as of this encounter
--- OUTSIDE RECORDS SUMMARY | 2024-04-11 12:20 | External Medical Summary | Summary of Care ---
Author Name Unknown Organization [facility] Address [address] [facility] [place] [address] Phone [phone] Care Team Providers Care Home Appraiser Name Role Phone Zainab Herndon Primary Care Provider [phone] Reason for Referral * Evaluate & Treat - Unlimited Visits (Within 10 days (routine)) - Pending Review Specialty Diagnoses / Procedures Referred By Leandro dutta Referred To Contact HOME CARE / Home Care Diagnoses Hip pain, left Daniel Lantigua MD [address] [place] [address] [place] [address] Referral ID Status Reason Start Date Expiration Date Visits Requested Visits Authorized [id number] Pending Review Specialty Services Required 11/12/2023 999 999 Question Answer Referral Priority Within 10 days (routine) Where should this appointment be scheduled? Gloria Comments Documentation of Flcu-yh-Ijgx Encounter Addendum Patient Name: Sandra Mcleod I certify that this patient is under my care and that I, or a nurse practitioner or physician's shipping and receiving assistant working with me, had a [id number] encounter that meets the physician [id number] encounter requirements with this patient on: 11/11 [...] effort and are for medical reasons or adventism services or infrequently or of short duration when for other reason) because: Physician Signature: Date of Signature: Physician Printed Name: Daniel Lantigua MD Reason for Visit * Reason Comments Emergency Department Follow-Up Encounter Details Date Type Department Care Team (Late st Contact Info) Description 11/12/2023 8:20 AM EDT Office Visit Family Medicine [address] [place] [phone] Daniel Lantigua MD [address] [place] [address] [place] [phone] Hip pain, left*; Type 2 diabetes mellitus [...] 01/09/2015 Memory deficits 03/13/2012 03/28/2020 Fall at intermediate 03/13/2012 012 Slow transit constipation 03/11/2012 SAH [...] HLD, HTN, Osteoporosis, CKD III, dementia seen fo Pt was late to the initial appt [...] pressure less than 140/90 01/17/2016 Fall at intermediate 03/13/2012 Gastroesophageal reflux disease without esophagitis 01/17/2016 [...] performed by Alan Hernandez MD at [place] [facility] CATHETER IN ARTERIES 06/30/2013 CATHETER PLACEMENT, BRACHIOCEPHALIC, THIRD ORDER BRANCH performed by Alan Hernandez MD at [place] [facility] [place] CATARACT, INSERT LENS PROSTH 09/27/13 left [...] billed services. Daniel Lantigua MD Family medicine, [address] [address] documented in this encounter Nursing Notes * Chery Goldsmith CMA - 11/12/2023 8:57 AM EDT She is here for an emergency room follow up. She is having left hip pain. documented in this encounter Plan of Treatment Upcoming Encounters Date Type Department Care Team (Late st Contact Info) Description 11/27/2023 12:30 PM EDT Office Visit Orthopaedics [address] [phone] Jm Burkett MD [address] [place] [address] 01/02/2024 8:50 AM EDT Office Visit Family Medicine [address] [phone] [address] [place] [address] Pending Results Name Type Priority Associated Diagnoses Date /Time HEMOGLOBIN A1C Lab Routine Type 2 diabetes mellitus with stage 3b chronic kidney disease, without long-term current use of insulin ([facility]) 11/12/2023 9:29 AM EDT BASIC METABOLIC PANEL Lab Routine Type 2 diabetes mellitus with stage 3b chronic kidney disease, without long-term current use of insulin ([facility]) 11/12/2023 9:29 AM EDT Scheduled Referrals Name Type Priority Associated Diagnoses [...] Additional history exists CKD PHOS USE SMARTSET 80434 04/30/20230 06/2022, 04/10/2022, 04/04/2021, Additional history exists HbA1c 05/04/2023 11/01/2022, 0 06/2022, 04/10/2022, Additional history exists CKD HGB USE SMARTSET 09752 05/28/202305/28, 05/28/2022, 05/14/2022, Additional history exists Diabetic Foot Exam 11/02/2023 11/01/2022, 0 10/03/2021, 03/28/2020, Additional history exists Influenza Vaccine (FLU shot) (#1) 2023 03/19/2022, 04/04/2021, 02/07/2020, Additional history exists Pneumococcal Vaccine: 65+ Years Completed 07/04/2014, 09/28/2008 *BISPHONATE OR OTHER ACCEPTABLE MEDICATION NEEDED FOR OSTEOPOROSIS (REFER TO SMARTSET #9314) Addressed 01/28/2017 (Refused) Overridden wi th the intention of not completing the topic VITAMIN D LEVEL ONCE IN A LIFETIME-USE SMARTSET# 95595 Completed 04/04/2021, 09/27/2020, 02/07/2020, Additional history exists [...] this encounter Medical Devices Implanted Type Area Photovoltaic Subcontractor Device Identifier Shelf Expiration Date Model / Serial / Lot Galaxy Xtrasoft 2.5 X 5 Coil Implanted:Qty: 1 on 02/03/2012 at [place] [facility] [place]: Head REID [employer] REID CODMAN 07/03/2013 / [id number] / [id number] documented as of this encounter Visit Diagnoses [...] Power of Attor eleanor? No Care Teams Home Appraiser Relationship Specialty Start Date End Date Zainab Herndon DO [address] [place] [address] [place] [address] PCP - General Internal Medicine 01/01/17 documented as of this encounter"
--- OUTSIDE RECORDS SUMMARY | 2024-04-11 12:20 | External Medical Summary | Summary of Care ---
Author Name Unknown Organization [facility] Address [address] [place] [address] Phone [phone] Care Team Providers Care Marketing Sales Representative Name Role Phone Zainab Herndon DO Primary Care Provider [phone] Reason for Referral * Evaluate & Treat - Unlimited Visits (Within 10 days (routine)) - Authorized Specialty Diagnoses / Procedures Referred By Contac t Referred To Contact Physical Therapy / Physical Medicine And Rehab Diagnoses Hip pain, left Jm Burkett MD [address] [place] [address] Referral ID Status Reason Start Date Expiration Date Visits Requested Visits Authorized [id number] Authorized Specialty Services Required 11/27/2023 999 999 Question Answer Referral Priority Within 10 days (routine) Where should this appointment be scheduled? 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 Please use home health orders from PCP Dr. Grzegorz KAMARA and Dr. Zainab Herndon DO (PCP) Reason for Visit * Reason Comments NEW PATIENT L hip Encounter Details Date Type Department Care Team (Late st Contact Info) Description 11/27/2023 12:30 PM EDT Office Visit Orthopaedics [address] [phone] Jm Burkett MD [address] [employer] [place] [address] Hip pain, left* Allergies No known active allergiesdocumented as of this encounter (statuses as of 11/27/2023) Medications Medication Sig Dispensed Refills Start Date [...] as of this encounter (statuses as of 11/27/2023) Active Problems Problem Noted Date Diagnosed Date [...] as of this encounter (statuses as of 11/27/2023) Resolved Problems Problem Noted Date Diagnosed Date [...] as of this encounter (statuses as of 11/27/2023) Immunizations Name Administration Dates Next Due COVID-19 [...] Progress Notes * Jm Burkett MD - 11/27/2023 12:30 PM EDT Sandra Mcleod [id number] Sandra Mcleod is a 88 year old female who presents for consultation for left hip injury/pain to [facility]. Consult requested by Robert Herndon DO. Sandra Mcleod is here with her granddaughter Quality: reviewed and agree with Nursing Notes for HPI elements History: History - L Hip Pt seen on 11/01/23 @ [facility] ED Pt DENIES pain today Pain is [...] taking regular strength 3 times per day. ROS: ROS per HPI otherwise non-contributory Past Medical History: Diagnosis Date Abnormality of gait 03/13/2012 Anemia 03/13/2012 Balance problems 07/14/2013 Cerebral aneurysm Constipation, slow transit 07/14/2013 Depressive disorder, not elsewhere classified DM type 2, goal A1c below 7 03/13/2012 DM type 2, goal A1C below 8.0 09/15/2013 Essential hypertension with goal blood pressure less than 140/90 01/17/2016 Fall at alf 03/13/2012 Gastroesophageal reflux disease without esophagitis 01/17/2016 [...] Concern Not on file Social History Narrative Not on file Social Determinants of Health Financial Resource Strain: Not on file Food Insecurity: Not on file Transportation Needs: Not on file Social Connections: Unknown (10/14/2023) Social Connections How often do you feel lonely or isolated from those around you? (Adult - for ages 18 years and over): Not on file Housing Stability: Not on file Physical Exam Constitutional: Generally well-nourished and in no acute distress Psychiatric: Mood and Affect normal Eyes: EOMI Respiratory: Normal respiratory effort with regular rate and rhythm Cardiovascular: No edema in the affected extremity (s) Hip and Pelvis Exam Gait: Limp: Positive Antalgic: Positive Scars / Previous Surgery or Trauma: None Alignment: Normal Palpation: Tender palpate at the greater trochanter, no SI or lumbar spine tenderness, no groin tenderness Hernia: No ROM: Flexion (normal 120-130): L - 120, R - 120 Internal at 90 (normal 45): L - 30, R - 30 External at 90 (normal 50): L - 45, R - 45 No pain with range of motion of the hip Radiology: Outside films: At the time of her visit only report available, no images (full report is scanned toour records) 11/27/2023: Three-view x-ray left hip including AP [...] strength up to 3 times per day. She also received a physical therapy and home health referrals from primary care. I agreed with these and placed aphysical therapy referral again for her to do at home. We also discussed possibility of trying a greater trochanteric steroid injection ultrasound guidance and potentially obtaining MRI. However given pain is controlled with Tylenol along at an not thinkthe patient has something such as an occult fracture and therefore do not think MRI is needed at this time. Patient and her granddaughter were in agreement Follow up 10-12 weeks, sooner for worsening Note: Patient had a disc with images obtained at outside facility with her. We were not able to lowthese today. I will take them back to our [place] office and hopefully be able to load them there. The imaging report however was available and is discussed above under radiology Jm Burkett MD Primary Care Sports Medicine Orthopaedics [address] [phone] documented in this encounter Nursing Notes * Adalgisa Ortiz LPN - 11/27/2023 12:51 PM EDT NEW Pt L Hip Pt seen on 11/01/23 @ [facility] ED Pt DENIES pain today Ariela King LPN documented in this encounter Plan of Treatment Upcoming Encounters Date Type Department Care Team (Late st Contact Info) Description 01/02/2024 8:50 AM EDT Office Visit Family Medicine [address] [phone] [place] [address] 02/05/2024 3:15 PM EDT Office Visit Orthopaedics [address] [place] [address] Jm Burkett MD [address] [place] [address] Scheduled Referrals Name Type Priority Associated Diagnoses Orde r Schedule PHYSICAL THERAPY REFERRAL OP Referral Within 10 days (routine) Hip pain, left Ordered: 11/27/2023 Health Maintenance Due Date Last Done Comments DTaP,Tdap,and Td Vaccines (1 - Tdap) 1954 Zoster Vaccines (1 of 2) 10/14/1987 Depression Screening 12/04/2018 12/04/2017 DXA Scan 09/28/2022 09/28/2020, 02/28, 08/02/2015, Additional history exists Diabetic Eye Exam 12/20/2022 12/20/2021, , 03/14/2016, Additional history exists COVID-19 Vaccine ( season) 2022 08/15/2020, 07/11/2020 Albumin/Creatinine Ratio 04/30/2023 023, 04/04/2021, 09/28/2020, Additional history exists CKD PHOS USE SMARTSET 01015 04/30/2023 01/0 06/2022, 04/10/2022, 04/04/2021, Additional history exists CKD HGB USE SMARTSET 47543 05/28/202305/28, 05/28/2022, 05/14/2022, Additional history exists Diabetic [...] D LEVEL ONCE IN A LIFETIME-USE SMARTSET# 29334 Completed 04/04/2021, 09/27/2020, 02/07/2020, Additional history exists [...] this encounter Medical Devices Implanted Type Area Community Worker Device Identifier Shelf Expiration Date Model / Serial / Lot Galaxy Xtrasoft 2.5 X 5 Coil Implanted:Qty: 1 on 02/03/2012 at [facility] N/A: Head REID [employer] REID XI 07/03/2013 / [id number] / [id number] documented as of this encounter Visit Diagnoses [...] Power of Attor eleanor? No Care Teams Marketing Sales Representative Relationship Specialty Start Date End Date Zainab Herndon DO [address] [place] [address] [place] [address] PCP - General Internal Medicine 01/01/17 documented as of this encounter
--- OUTSIDE RECORDS SUMMARY | 2024-04-11 12:20 | External Medical Summary | Summary of Care ---
Author Name Unknown Organization [facility] Address [address] [facility] [place] [address] Phone [phone] Care Team Providers Care Network Controller Name Role Phone Zainab Herndon DO Primary Care Provider [phone] Reason for Visit * Reason Onset Date Comments Home Health 11/13/2023 Encounter Details Date Type Department Care Team ([facility] st Contact Info) Description 11/13/2023 Telephone Family Medicine [address] [phone] Zainab Herndon DO [address] [place] [address] [place] [address] Home Health Allergies No known active allergiesdocumented as of this encounter (statuses as of 11/19/2023) Medications Medication Sig Dispensed Refills Start Date [...] for 5 days. 10 Tablet 11/12/2023 11/17/2023 documented as of this encounter (statuses as of 11/19/2023) Active Problems Problem Noted Date Diagnosed Date [...] as of this encounter (statuses as of 11/19/2023) Resolved Problems Problem Noted Date Diagnosed Date [...] as of this encounter (statuses as of 11/19/2023) Immunizations Name Administration Dates Next Due COVID-19 [...] Telephone Encounter - Monica Alas LPN - 11/19/2023 10:59 AM EDT Referral, note, and demographics sent to [facility]. * Telephone Encounter - Daniel Lantigua MD - 11/14/2023 9:20 AM EDT Can we set up with olayinka freire * Telephone Encounter - Niya Martinez LPN - 11/13/2023 1:44 PM EDT Nayeli calling from [facility]. Asking about the patients insurance. It is [employer]. [employer] is out of network with them and they are unable to take the patient. documented in this encounter Plan of Treatment Upcoming Encounters Date Type Department Care Team (Late st Contact Info) Description 11/27/2023 12:30 PM EDT Office Visit Orthopaedics [address] [phone] Jm Burkett MD [address] [place] [address] 01/02/2024 8:50 AM EDT Office Visit Family Medicine [address] [phone] [address] [place] [address] Health Maintenance Due Date Last Done Comments DTaP,Tdap,and Td Vaccines (1 - Tdap) 1954 Zoster Vaccines (1 of 2) 10/14/1987 Depression Screening 12/04/2018 12/04/2017 DXA Scan 09/28/2022 09/28/2020, 02/28, 08/02/2015, Additional history exists Diabetic Eye Exam 12/20/2022 12/20/2021, , 03/14/2016, Additional history exists COVID-19 Vaccine ( season) 2022 08/15/2020, 07/11/2020 Albumin/Creatinine Ratio 04/30/20232 023, 04/04/2021, 09/28/2020, Additional history exists CKD PHOS USE SMARTSET 84962 04/30/2023 01/0 06/2022, 04/10/2022, 04/04/2021, Additional history exists CKD HGB USE SMARTSET 34054 05/28/202305/28, 05/28/2022, 05/14/2022, Additional history exists Diabetic Foot Exam 11/02/2023 11/01/2022, 0 10/03/2021, 03/28/2020, Additional history exists Influenza Vaccine (FLU shot) (#1) 2023 03/19/2022, 04/04/2021, 02/07/2020, Additional history exists HbA1c 05/14/2024 11/12/2023, 07/0 10/2022, 04/30/2022, Additional history exists Pneumococcal Vaccine: 65+ Years Completed 07/04/2014, 09/28/2008 *BISPHONATE OR OTHER ACCEPTABLE MEDICATION NEEDED FOR OSTEOPOROSIS (REFER TO SMARTSET #1147) Addressed 01/28/2017 (Refused) Overridden wi th the intention of not completing the topic VITAMIN D LEVEL ONCE IN A LIFETIME-USE SMARTSET# 57516 Completed 04/04/2021, 09/27/2020, 02/07/2020, Additional history exists [...] this encounter Medical Devices Implanted Type Area Can Washer Device Identifier Shelf Expiration Date Model / Serial / Lot Galaxy Xtrasoft 2.5 X 5 Coil Implanted:Qty: 1 on 02/03/2012 at OR [facility] [place] [place] N/A: Head REID [employer] REID CODMAN 07/03/2013 / [id number] / [id number] documented as of this encounter Advance Directives [...] Power of Attor eleanor? No Care Teams Network Controller Relationship Specialty Start Date End Date Zainab Herndon DO [address] [place] [address] [place] [phone] PCP - General Internal Medicine 01/01/17 documented as of this encounter
--- OUTSIDE RECORDS SUMMARY | 2024-04-11 12:20 | External Medical Summary | Summary of Care ---
Author Name Unknown Organization [facility] Address [address] [facility] [address] Phone [phone] Care Team Providers Care Window Air Conditioner Installer Name Role Phone Zainab Herndon DO Primary Care Provider [phone] Reason for Visit * Reason Onset Date Comments Home Health 11/13/2023 Encounter Details Date Type Department Care Team ([facility] st Contact Info) Description 11/13/2023 Telephone Family Medicine [address] [phone] Zainab Herndon DO [address] [place] [address] [place] [address] Home Health Allergies No known active [...] 01/09/2015 Memory deficits 03/13/2012 03/28/2020 Fall at [facility] 03/13/2012 012 Slow transit constipation 03/11/2012 SAH [...] encounter Miscellaneous Notes * Telephone Encounter - Daniel Lantigua MD - 11/14/2023 9:20 AM EDT Can we set up with olayinka freire * Telephone Encounter - Niya Martinez LPN - 11/13/2023 1:44 PM EDT Nayeli calling from [facility]. Asking about the patients insurance. It is [employer]. [employer] is out of network with them and they are unable to take the patient. documented in this encounter Plan of Treatment Upcoming Encounters Date Type Department Care Team (Late st Contact Info) Description 11/27/2023 12:30 PM EDT Office Visit Orthopaedics [address] [place] [phone] Jm Burkett MD [address] [place] [address] 01/02/2024 8:50 AM EDT Office Visit Family Medicine [address] [place] [phone] [address] [place] [address] Health Maintenance Due Date Last Done Comments DTaP,Tdap,and Td Vaccines (1 - Tdap) 1954 Zoster Vaccines (1 of 2) 10/14/1987 Depression Screening 12/04/2018 12/04/2017 DXA Scan 09/28/2022 09/28/2020, 02/28, 08/02/2015, Additional history exists Diabetic Eye Exam 12/20/2022 12/20/2021, , 03/14/2016, Additional history exists COVID-19 Vaccine ( season) 2022 08/15/2020, 07/11/2020 Albumin/Creatinine Ratio 04/30/2023 023, 04/04/2021, 09/28/2020, Additional history exists CKD PHOS USE SMARTSET 63348 04/30/2023 01/0 06/2022, 04/10/2022, 04/04/2021, Additional history exists CKD HGB USE SMARTSET 38168 05/28/202305/28, 05/28/2022, 05/14/2022, Additional history exists Diabetic [...] D LEVEL ONCE IN A LIFETIME-USE SMARTSET# 64756 Completed 04/04/2021, 09/27/2020, 02/07/2020, Additional history exists [...] this encounter Medical Devices Implanted Type Area Veterinary Livestock Inspector Device Identifier Shelf Expiration Date Model / Serial / Lot Galaxy Xtrasoft 2.5 X 5 Coil Implanted:Qty: 1 on 02/03/2012 at [place] [facility] [place] N/A: Head REID [employer] REID CODMAN 07/03/2013 / [id number] / [id number] documented as of this encounter Advance Directives [...] Power of Attor eleanor? No Care Teams Window Air Conditioner Installer Relationship Specialty Start Date End Date Zainab Herndon DO [address] [place] [address] [place] [address] PCP - General Internal Medicine 01/01/17 documented as of this encounter
--- OUTSIDE RECORDS SUMMARY | 2024-04-11 12:20 | External Medical Summary | Summary of Care ---
Author Name Unknown Organization [facility] Address [address] [place] [address] Phone [phone] Care Team Providers Care Carpenter'S Assistant Name Role Phone Zainab Herndon DO Primary Care Provider [phone] Encounter Details Date Type Department Care Team (Late st Contact Info) Description 11/01/2023 Orders Only Unspecified Department Amilcar Plaza [place] [address] [address] Allergies No known active allergiesdocumented as of this encounter (statuses as of 12/02/2023) Medications Medication Sig Dispensed Refills Start Date [...] as of this encounter (statuses as of 12/02/2023) Active Problems Problem Noted Date Diagnosed Date [...] as of this encounter (statuses as of 12/02/2023) Resolved Problems Problem Noted Date Diagnosed Date [...] 01/09/2015 Memory deficits 03/13/2012 03/28/2020 Fall at group home 03/13/2012 012 Slow transit constipation 03/11/2012 [...] as of this encounter (statuses as of 12/02/2023) Immunizations Name Administration Dates Next Due COVID-19 [...] 8:50 AM EDT Office Visit Family Medicine [address] [place] [address] [address] [place] [address] 02/05/2024 3:15 PM EDT Office Visit Orthopaedics [address] [place] [address] Jm Burkett MD [address] [place] [address] Health Maintenance Due Date Last Done Comments [...] Additional history exists CKD PHOS USE SMARTSET 02358 04/30/2023 01/0 06/2022, 04/10/2022, 04/04/2021, Additional history exists CKD HGB USE SMARTSET 57390 05/28/202305/28, 05/28/2022, 05/14/2022, Additional history exists Diabetic [...] D LEVEL ONCE IN A LIFETIME-USE SMARTSET# 91940 Completed 04/04/2021, 09/27/2020, 02/07/2020, Additional history exists [...] this encounter Medical Devices Implanted Type Area Forming Roll Operator Device Identifier Shelf Expiration Date Model / Serial / Lot Galaxy Xtrasoft 2.5 X 5 Coil Implanted:Qty: 1 on 02/03/2012 at OR [facility] [place] N/A: Head LIA LAYNE 07/03/2013 / [id number] / [id number] documented as of this encounter Procedures Procedure [...] study not interpreted or resulted by a [facility] or [facility] contracted radiologist. Amilcar Plaza MD RADIOLOGY (RAD [...] Power of Attor eleanor? No Care Teams Carpenter'S Assistant Relationship Specialty Start Date End Date Zainab Herndon DO [address] [place] [address] [place] [address] PCP - General Internal Medicine 01/01/17 documented as of this encounter
--- OUTSIDE RECORDS SUMMARY | 2024-04-11 12:20 | External Medical Summary ---
Author Name Unknown Address Unknown Organization K01:[facility] [place] [facility] [address] [place] [address] Laboratory Report Ordering Provider Test Date Status KEYON RASCON 01/02/2024 09:44:53 Final Observation Date Value Abnormality Reference (Units ) Status SYNC LEUKOCYTES IN BLOOD BY AUTOMATED COUNT 01/02/2024 09:44:53 5.45 4.00-10.80 (K/uL) Final Segs 01/02/2024 09:44:53 64.2 40.0-75.0 (%) Final Lymphs % 01/02/2024 09:44:53 22.0 18.0-42.0 (%) Final Monos 01/02/2024 09:44:53 10.3 1.0-11.0 (%) Final Eosinophils 01/02/2024 09:44:53 2.2 0.0-6.0 (%) Final Basos 01/02/2024 09:44:53 0.9 0.0-2.0 (%) Final Immature Granulocyte, Percent 01/02/2024 09:44:53 0.4 0.0-2.0 (%) Final Absolute Segs 01/02/2024 09:44:53 3.50 1.80-7.70 (K/uL) Final Lymphs, absolute 01/02/2024 09:44:53 1.20 1.00-4.80 (K/ul) Final Monos, Abs 01/02/2024 09:44:53 0.56 0.00-1.10 (K/uL) Final Eos, Abs 01/02/2024 09:44:53 0.12 0.00-0.70 (K/uL) Final Basos, Abs 01/02/2024 09:44:53 0.05 0.00-0.20 (K/uL) Final Immature Granulocytes, Number 01/02/2024 09:44:53 0.02 0.00-0.20 (K/uL) Final Performing Location [facility] [place] - [address] [facility] [address]
--- OUTSIDE RECORDS SUMMARY | 2024-04-11 12:20 | External Medical Summary | Summary of Care ---
Author Name Unknown Organization [facility] Address [address] [facility] [address] Phone [phone] Care Team Providers Care Overhead Irrigator Name Role Phone Zainab Herndon DO Primary Care Provider [phone] Reason for Visit * Reason Onset Date Comments Home Health 11/13/2023 Encounter Details Date Type Department Care Team ([facility] st Contact Info) Description 11/13/2023 Telephone Family Medicine [address] [phone] Zainab Herndon DO [address] [place] [address] [place] [address] Home Health Allergies No known active allergiesdocumented as of this encounter (statuses as of 11/14/2023) Medications Medication Sig Dispensed Refills Start Date [...] as of this encounter (statuses as of 11/14/2023) Active Problems Problem Noted Date Diagnosed Date [...] as of this encounter (statuses as of 11/14/2023) Resolved Problems Problem Noted Date Diagnosed Date [...] 01/09/2015 Memory deficits 03/13/2012 03/28/2020 Fall at half-way 03/13/2012 012 Slow transit constipation 03/11/2012 SAH (subarachnoid hemorrhage) 02/03/2012 01/28/2017 Hypokalemia 02/03/2012 03/13/2012 GERD (gastroesophageal reflux disease) 07/17/2016 Major depressive disorder Overview: ICD-10 update of inactive term Subarachnoid hemorrhage 02/26 Cerebral aneurysm 01/28/2017 HTN, goal below 130/80 01/21 Type II or unspecified type diabetes mellitus without mention of complication, not stated as uncontrolled 03/13/2012 documented as of this encounter (statuses as of 11/14/2023) Immunizations Name Administration Dates Next Due COVID-19 [...] EDT [facility] * Telephone Encounter - Niya Martinez LPN - 11/13/2023 1:44 PM EDT Nayeli calling from [facility]. Asking about the patients insurance. It is [employer]. [employer] is out of network with them and they are unable to take the patient. documented in this encounter Plan of Treatment Upcoming Encounters Date Type Department Care Team (Late st Contact Info) Description 11/27/2023 12:30 PM EDT Office Visit Orthopaedics [address] [place] [phone] Jm Burkett MD [address] [place] [address] 01/02/2024 8:50 AM EDT Office Visit Family Medicine [address] [place] [phone] Zainab Herndon [address] [place] [address] Health Maintenance Due Date Last Done Comments DTaP,Tdap,and Td Vaccines (1 - Tdap) 1954 Zoster Vaccines (1 of 2) 10/14/1987 Depression Screening 12/04/2018 12/04/2017 DXA Scan 09/28/2022 09/28/2020, 02/28, 08/02/2015, Additional history exists Diabetic Eye Exam 12/20/2022 12/20/2021, , 03/14/2016, Additional history exists COVID-19 Vaccine ( season) 2022 08/15/2020, 07/11/2020 Albumin/Creatinine Ratio 04/30/2023 023, 04/04/2021, 09/28/2020, Additional history exists CKD PHOS USE SMARTSET 76044 04/30/2023 01/0 06/2022, 04/10/2022, 04/04/2021, Additional history exists CKD HGB USE SMARTSET 33075 05/28/202305/28, 05/28/2022, 05/14/2022, Additional history exists Diabetic [...] D LEVEL ONCE IN A LIFETIME-USE SMARTSET# 29001 Completed 04/04/2021, 09/27/2020, 02/07/2020, Additional history exists [...] this encounter Medical Devices Implanted Type Area Denture Contour Wire Specialist Device Identifier Shelf Expiration Date Model / Serial / Lot Galaxy Xtrasoft 2.5 X 5 Coil Implanted:Q[place]: 1 [place] [facility] [place] Head [employer] REID CODMAN 07/03/2013 / [id number] / [id number] documented as of this encounter Advance Directives [...] Power of Attor eleanor? No Care Teams Overhead Irrigator Relationship Specialty Start Date End Date Zainab Herndon DO [address] [place] [address] [place] [address] PCP - General Internal Medicine 01/01/17 documented as of this encounter
--- OUTSIDE RECORDS SUMMARY | 2024-04-11 12:21 | External Medical Summary | Summary of Care ---
Author Name Unknown Organization [facility] Address [address] [place] [address] Phone [phone] Care Team Providers Care Cardiac Nurse Practitioner Name Role Phone Tarah Ta DO Primary Care Provider [phone] Reason for Visit * Reason Onset Date Comments Medication Refill 10/27/2023 Encounter Details Date Type Department Care Team (Late st Contact Info) Description 10/27/2023 Refill Family Medicine [address] [phone] Tarah Ta DO [address] [place] [address] [place] [address] Essential hypertension with goal blood pressure less than 140/90*; Type 2 diabetes mellitus with stage 3b chronic kidney disease, without long-term current use of insulin (HCC) Allergies No known active allergiesdocumented as of this encounter (statuses as of 10/28/2023) Medications Medication Sig Dispensed Refills Start Date [...] the morning. 90 Tablet 3 10/28/2023 Active amLODIPine Besylate 10 MG Oral Tablet (Norvasc) Take 1 Tablet by mouth in the morning. 90 Tablet 3 11/01/2022 10/27/2023 Discontinued (Refill) glipiZIDE ER 2.5 MG Oral Tablet Extended Release 24 Hour (glipiZIDE XL)Indications:Typ e 2 diabetes mellitus with stage 3b chronic kidney disease, without long-term current use of insulin (HCC) Take 1 Tablet by mouth in the morning. 30 minutes before a meal.. 90 Tablet 1 04/29/2023 10/27/2023 Discontinued (Refill) documented as of this encounter (statuses as of 10/28/2023) Active Problems Problem Noted Date Diagnosed Date [...] as of this encounter (statuses as of 10/28/2023) Resolved Problems Problem Noted Date Diagnosed Date [...] 01/09/2015 Memory deficits 03/13/2012 03/28/2020 Fall at long-term 03/13/2012 012 Slow transit constipation 03/11/2012 SAH (subarachnoid hemorrhage) 02/03/2012 01/28/2017 Hypokalemia 02/03/2012 03/13/2012 GERD (gastroesophageal reflux disease) 07/17/2016 Major depressive disorder Overview: ICD-10 update of inactive term Subarachnoid hemorrhage 02/26 Cerebral aneurysm 01/28/2017 HTN, goal below 130/80 01/21 Type II or unspecified type diabetes mellitus without mention of complication, not stated as uncontrolled 03/13/2012 documented as of this encounter (statuses as of 10/28/2023) Immunizations Name Administration Dates Next Due COVID-19 [...] Telephone Encounter - Tarah Ta DO - 10/28/2023 9:12 AM EDTSigned Prescriptions: Disp Refills glipiZIDE ER 2.5 MG Oral Tablet Extended R*90 Tab*1 Sig: Take 1 Tablet by mouth in the morning. 30 minutes before a meal.. Authorizing Provider: TARAH TA amLODIPine Besylate 10 MG Oral Tablet (Nor*90 Tab*3 Sig: Take 1 Tablet by mouth in the morning. Authorizing Provider: TARAH TA * Telephone Encounter - Chery Goldsmith CMA - 10/27/2023 3:27 PM EDTPending Prescriptions: Disp Refills glipiZIDE ER 2.5 MG Oral Tablet Extended R*90 Tab*1 Sig: Take 1 Tablet by mouth in the morning. 30 minutes before a meal.. amLODIPine Besylate 10 MG Oral Tablet (Nor*90 Tab*3 Sig: Take 1 Tablet by mouth in the morning. * Telephone Encounter - Josie Ramsey OSA - 10/27/2023 10:29 AM EDT Did you pend patient's preferred pharmacy and medication before forwarding?yes Pharmacy: [facility] [address] [facility] Pending Prescriptions: Disp Refills glipiZIDE ER 2.5 MG Oral Tablet Extended *90 Tab*1 Sig: Take 1 Tablet by mouth in the morning. 30 minutes before a meal.. amLODIPine Besylate 10 MG Oral Tablet (No*90 Tab*3 Sig: Take 1 Tablet by mouth in the morning. Last Visit: 11/01/2022 (in office), Visit date not found (telemedicine) Next Visit: 01/02/2024 If no future appointments scheduled, and last appointment is greater than a year ago, please schedule patient for a follow-up appointment Last date the medication was ordered: 04/29/2023 Is this request for a controlled substance?No [...] 8:50 AM EDT Office Visit Family Medicine [address] [place] [phone] Tarah Ta [address] [place] [address] Health Maintenance Due Date Last Done Comments DTaP,Tdap,and Td Vaccines (1 - Tdap) 1954 Zoster Vaccines (1 of 2) 10/14/1987 Depression Screening 12/04/2018 12/04/2017 DXA Scan 09/28/2022 09/28/2020, 02/28, 08/02/2015, Additional history exists Diabetic Eye Exam 12/20/2022 12/20/2021, , 03/14/2016, Additional history exists COVID-19 Vaccine ( season) 2022 08/15/2020, 07/11/2020 Albumin/Creatinine Ratio 04/30/2023 023, 04/04/2021, 09/28/2020, Additional history exists CKD PHOS USE SMARTSET 80796 04/30/202306/2022, 04/10/2022, 04/04/2021, Additional history exists HbA1c 05/04/2023 11/01/2022, 06/2022, 04/10/2022, Additional history exists CKD HGB USE SMARTSET 43920 05/28/202305/28, 05/28/2022, 05/14/2022, Additional history exists Diabetic [...] D LEVEL ONCE IN A LIFETIME-USE SMARTSET# 62486 Completed 04/04/2021, 09/27/2020, 02/07/2020, Additional history exists GARDASIL-HPV IMMUNIZATION SERIES Aged Out No longer eligible based on patient's age to complete this topic Hepatitis B Aged Out No longer eligi ble based on patient's age to complete this topic MENINGOCOCCAL (MENACTRA/MENVEO) Aged Out No longer eligible based on patient's age to complete this topic documented as of this encounter Medical Devices Implanted Type Area Terminal Superintendent Device Identifier Shelf Expiration Date Model / Serial / Lot Galaxy Xtrasoft 2.5 X 5 Coil Implanted:Qty: 1 on 02/03/2012 [place] [facility] [place] Head [employer] REID LAYNE 07/03/2013 / [id number] / [id number] documented as of this encounter Visit Diagnoses Diagnosis Essential hypertension with goal blood pressure less than 140/90- Primary Type 2 diabetes mellitus with stage [...] Power of Attor eleanor? No Care Teams Cardiac Nurse Practitioner Relationship Specialty Start Date End Date Tarah Ta DO [address] [place] [address] [place] [address] PCP - General Internal Medicine 01/01/17 documented as of this encounter
--- OUTSIDE RECORDS SUMMARY | 2024-04-11 12:21 | External Medical Summary | Summary of Care ---
Author Name Unknown Organization [facility] Address [address] [place] [facility] [place] [address] Phone [phone] Care Team Providers Care Utility Agent Name Role Phone Zainab Herndon DO Primary Care Provider Reason for Visit * Reason Onset Date Comments Appointment 10/31/2023 Advice 10/31/2023 Encounter Details Date Type Department Care Team (Late st Contact Info) Description 10/31/2023 Telephone Family Medicine [address] [phone] Zainab Herndon DO [address] [place] [address] [address] Appointment; Advice Allergies No known active allergiesdocumented as of this encounter (statuses as of 11/04/2023) Medications Medication Sig Dispensed Refills Start Date [...] as of this encounter (statuses as of 11/04/2023) Active Problems Problem Noted Date Diagnosed Date [...] as of this encounter (statuses as of 11/04/2023) Resolved Problems Problem Noted Date Diagnosed Date [...] 01/09/2015 Memory deficits 03/13/2012 03/28/2020 Fall at snf 03/13/2012 012 Slow transit constipation 03/11/2012 SAH (subarachnoid hemorrhage) 02/03/2012 01/28/2017 Hypokalemia 02/03/2012 03/13/2012 GERD (gastroesophageal reflux disease) 07/17/2016 Major depressive disorder Overview: ICD-10 update of inactive term Subarachnoid hemorrhage 02/26 Cerebral aneurysm 01/28/2017 HTN, goal below 130/80 01/21 Type II or unspecified type diabetes mellitus without mention of complication, not stated as uncontrolled 03/13/2012 documented as of this encounter (statuses as of 11/04/2023) Immunizations Name Administration Dates Next Due COVID-19 [...] Alas OSA - 11/03/2023 2:15 PM EDT Granddaughter, Sana is calling again. Pt was taken to [facility] ED in [place] on 10/31. Pt was told to follow up with Ortho after ED visit. Pt is in a lot of pain and family would like to know if a pain relieving mediation could be suggested/ordered. ED doctor did not prescribe any pain meds. Please reach out to Sana at [phone]. Thank you, ELANA [place] * Telephone Encounter - Mar Puga RN - 11/01/2023 10:33 AM EDT I called granddaughter and advised they take her to [facility] ER today, to rule out fractures, granddaughter [...] anddaughter would like a callback if possible. KindlyDaya * Telephone Encounter - Sia Kaiser OSA [...] 11/27/2023 12:30 PM EDT Office Visit Orthopaedics [address] [place] [address] [facility]m [facility] [place] [address] 01/02/2024 8:50 AM EDT Office Visit Family Medicine [address] [place] [phone] [address] [place] [address] Health Maintenance Due Date Last Done Comments DTaP,Tdap,and Td Vaccines (1 - Tdap) 1954 Zoster Vaccines (1 of 2) 10/14/1987 Depression Screening 12/04/2018 12/04/2017 DXA Scan 09/28/2022 09/28/2020, 02/28, 08/02/2015, Additional history exists Diabetic Eye Exam 12/20/2022 12/20/2021, , 03/14/2016, Additional history exists COVID-19 Vaccine ( season) 2022 08/15/2020, 07/11/2020 Albumin/Creatinine Ratio 04/30/2023 023, 04/04/2021, 09/28/2020, Additional history exists CKD PHOS USE SMARTSET 77835 04/30/202306/2022, 04/10/2022, 04/04/2021, Additional history exists HbA1c 05/04/2023 11/01/2022, 06/2022, 04/10/2022, Additional history exists CKD HGB USE SMARTSET 93149 05/28/202305/28, 05/28/2022, 05/14/2022, Additional history exists Diabetic [...] D LEVEL ONCE IN A LIFETIME-USE SMARTSET# 32612 Completed 04/04/2021, 09/27/2020, 02/07/2020, Additional history exists [...] this encounter Medical Devices Implanted Type Area Custom Feed Corn Operator Device Identifier Shelf Expiration Date Model / Serial / Lot Galaxy Xtrasoft 2.5 X 5 Coil Implanted:Qty: 1 on 02/03/2012 [place] [facility] [place] Head [employer] CODMAN 07/03/2013 / [id number] / [id number] documented as of this encounter Advance Directives [...] Power of Attor eleanor? No Care Teams Utility Agent Relationship Specialty Start Date End Date Zainab Herndon DO [address] [place] [address] [place] [phone] PCP - General Internal Medicine 01/01/17 documented as of this encounter
--- OUTSIDE RECORDS SUMMARY | 2024-04-11 12:21 | External Medical Summary | Summary of Care ---
Author Name Unknown Organization [facility] Address [address] [place] [address] Phone [phone] Care Team Providers Care Distributing Clerk Name Role Phone Zainab Herndon DO Primary Care Provider Reason for Visit * Reason Onset Date Comments Encounter Created in Error 11/03/2023 Encounter Details Date Type Department Care Team ([facility] st Contact Info) Description 11/03/2023 Telephone Family Medicine [address] [address] Zainab Herndon DO [address] [place] [address] [place] [address] Encounter Created in Error Allergies No known active allergiesdocumented as of this encounter (statuses as of 11/03/2023) Medications Medication Sig Dispensed Refills Start Date [...] as of this encounter (statuses as of 11/03/2023) Active Problems Problem Noted Date Diagnosed Date [...] as of this encounter (statuses as of 11/03/2023) Resolved Problems Problem Noted Date Diagnosed Date [...] as of this encounter (statuses as of 11/03/2023) Immunizations Name Administration Dates Next Due COVID-19 [...] encounter Miscellaneous Notes * Telephone Encounter - Rosa Alas OSA - 11/03/2023 2:12 PM EDT Created in error documented in this encounter Plan of Treatment Upcoming Encounters Date Type Department Care Team (Late st Contact Info) Description 11/27/2023 12:30 PM EDT Office Visit Orthopaedics [address] [phone] Jm Burkett MD [facility] [place] [address] 01/02/2024 8:50 AM EDT Office Visit Family Medicine [address] [phone] [address] [place] [address] Health Maintenance Due Date Last Done Comments DTaP,Tdap,and Td Vaccines (1 - Tdap) 1954 Zoster Vaccines (1 of 2) 10/14/1987 Depression Screening 12/04/2018 12/04/2017 DXA Scan 09/28/2022 09/28/2020, 02/28, 08/02/2015, Additional history exists Diabetic Eye Exam 12/20/2022 12/20/2021, , 03/14/2016, Additional history exists COVID-19 Vaccine ( season) 2022 08/15/2020, 07/11/2020 Albumin/Creatinine Ratio 04/30/2023 023, 04/04/2021, 09/28/2020, Additional history exists CKD PHOS USE SMARTSET 06835 04/30/20230 06/2022, 04/10/2022, 04/04/2021, Additional history exists HbA1c 05/04/2023 11/01/2022, 06/2022, 04/10/2022, Additional history exists CKD HGB USE SMARTSET 41150 05/28/202305/28, 05/28/2022, 05/14/2022, Additional history exists Diabetic Foot Exam 11/02/2023 11/01/2022, 0 10/03/2021, 03/28/2020, Additional history exists Influenza Vaccine (FLU shot) (#1) 2023 03/19/2022, 04/04/2021, 02/07/2020, Additional history exists Pneumococcal Vaccine: 65+ Years Completed 07/04/2014, 09/28/2008 *BISPHONATE OR OTHER ACCEPTABLE MEDICATION NEEDED FOR OSTEOPOROSIS (REFER TO SMARTSET #6995) Addressed 01/28/2017 (Refused) Overridden wi th the intention of not completing the topic VITAMIN D LEVEL ONCE IN A LIFETIME-USE SMARTSET# 90528 Completed 04/04/2021, 09/27/2020, 02/07/2020, Additional history exists [...] this encounter Medical Devices Implanted Type Area Gas Appliance Installer Device Identifier Shelf Expiration Date Model / Serial / Lot Galaxy Xtrasoft 2.5 X 5 Coil Implanted:Qty: 1 on 02/03/2012 at [place] [facility] [place]: Head [employer] CODMAN 07/03/2013 / [id number] / [id number] documented as of this encounter Advance Directives [...] Power of Attor eleanor? No Care Teams Distributing Clerk Relationship Specialty Start Date End Date Zainab Herndon DO [address] [place] [address] [place] [address] PCP - General Internal Medicine 01/01/17 documented as of this encounter
--- OUTSIDE RECORDS SUMMARY | 2024-04-11 12:21 | External Medical Summary | Summary of Care ---
Author Name Unknown Organization [facility] Address [address] [place] [address] Phone [phone] Care Team Providers Care Stone And Concrete Washer Name Role Phone Zainab Herndon DO Primary Care Provider [phone] Encounter Details Date Type Department Care Team ([facility] st Contact Info) Description 11/01/2023 Result Scan Unspecified Department <No scans attached> Allergies No known active allergiesdocumented as of this encounter (statuses as of 11/07/2023) Medications Medication Sig Dispensed Refills Start Date [...] as of this encounter (statuses as of 11/07/2023) Active Problems Problem Noted Date Diagnosed Date [...] as of this encounter (statuses as of 11/07/2023) Resolved Problems Problem Noted Date Diagnosed Date [...] as of this encounter (statuses as of 11/07/2023) Immunizations Name Administration Dates Next Due COVID-19 [...] 11/27/2023 12:30 PM EDT Office Visit Orthopaedics [address] [phone] Jm Burkett MD [address] [place] [address] 01/02/2024 8:50 AM EDT Office Visit Family Medicine [address] [place] [address] Zainab Herndon [address] [place] [address] Health Maintenance Due Date Last Done Comments DTaP,Tdap,and Td Vaccines (1 - Tdap) 1954 Zoster Vaccines (1 of 2) 10/14/1987 Depression Screening 12/04/2018 12/04/2017 DXA Scan 09/28/2022 09/28/2020, 02/28, 08/02/2015, Additional history exists Diabetic Eye Exam 12/20/2022 12/20/2021, , 03/14/2016, Additional history exists COVID-19 Vaccine ( season) 2022 08/15/2020, 07/11/2020 Albumin/Creatinine Ratio 04/30/2023 023, 04/04/2021, 09/28/2020, Additional history exists CKD PHOS USE SMARTSET 71919 04/30/20230 06/2022, 04/10/2022, 04/04/2021, Additional history exists HbA1c 05/04/2023 11/01/2022, 06/2022, 04/10/2022, Additional history exists CKD HGB USE SMARTSET 50645 05/28/202305/28, 05/28/2022, 05/14/2022, Additional history exists Diabetic Foot Exam 11/02/2023 11/01/2022, 0 10/03/2021, 03/28/2020, Additional history exists Influenza Vaccine (FLU shot) (#1) 2023 03/19/2022, 04/04/2021, 02/07/2020, Additional history exists Pneumococcal Vaccine: 65+ Years Completed 07/04/2014, 09/28/2008 *BISPHONATE OR OTHER ACCEPTABLE MEDICATION NEEDED FOR OSTEOPOROSIS (REFER TO SMARTSET #1143) Addressed 01/28/2017 (Refused) Overridden wi th the intention of not completing the topic VITAMIN D LEVEL ONCE IN A LIFETIME-USE SMARTSET# 08125 Completed 04/04/2021, 09/27/2020, 02/07/2020, Additional history exists [...] this encounter Medical Devices Implanted Type Area Lens Polisher Device Identifier Shelf Expiration Date Model / Serial / Lot Galaxy Xtrasoft 2.5 X 5 Coil Implanted:Qty: 1 on 02/03/2012 [place] [facility] [place] Head [employer] CODMAN 07/03/2013 / [id number] / [id number] documented as of this encounter Procedures Procedure Name Priority Date/Time Associated Diagnosis Comments RADIOLOGY SCANNED RESULT 11/01/2023 documented in this encounter Results * RADIOLOGY SCANNED RESULT (11/01/2023) 11/01/2023 No Physician Data Unknown DIAGNOSTIC RAD IOLOGY SERVICES documented in this encounter Advance Directives * [...] Power of Attor eleanor? No Care Teams Stone And Concrete Washer Relationship Specialty Start Date End Date Zainab Herndon DO [address] [place] [address] [place] [address] PCP - General Internal Medicine 01/01/17 documented as of this encounter
--- OUTSIDE RECORDS SUMMARY | 2024-04-11 12:21 | External Medical Summary | Summary of Care ---
Author Name Unknown Organization [facility] [address] [facility] [address] Phone [phone] Care Team Providers Care Electrical Superintendent Name Role Phone Zainab Herndon DO Primary Care Provider [phone] Reason for Visit * Reason Onset Date Comments Appointment 10/31/2023 Encounter Details Date Type Department Care Team (Late st Contact Info) Description 10/31/2023 Telephone Family Medicine [address] [phone] Zainab Herndon DO [address] [place] [address] [place] [phone] Appointment Allergies No known active allergiesdocumented as of this encounter (statuses as of 11/01/2023) Medications Medication Sig Dispensed Refills Start Date [...] as of this encounter (statuses as of 11/01/2023) Active Problems Problem Noted Date Diagnosed Date [...] as of this encounter (statuses as of 11/01/2023) Resolved Problems Problem Noted Date Diagnosed Date [...] as of this encounter (statuses as of 11/01/2023) Immunizations Name Administration Dates Next Due COVID-19 [...] granddaughter and advised they take her to [facility] ER today, to rule out fractures, granddaughter [...] like a callback if possible. Kindly, Daya Michael * Telephone Encounter - Sia Kaiser OSA [...] 8:50 AM EDT Office Visit Family Medicine [address] [place] [address] [place] [address] Health Maintenance Due Date Last Done Comments DTaP,Tdap,and Td Vaccines (1 - Tdap) 1954 Zoster Vaccines (1 of 2) 10/14/1987 Depression Screening 12/04/2018 12/04/2017 DXA Scan 09/28/2022 09/28/2020, 02/28, 08/02/2015, Additional history exists Diabetic Eye Exam 12/20/2022 12/20/2021, , 03/14/2016, Additional history exists COVID-19 Vaccine ( season) 2022 08/15/2020, 07/11/2020 Albumin/Creatinine Ratio 04/30/20232 023, 04/04/2021, 09/28/2020, Additional history exists CKD PHOS USE SMARTSET 50843 04/30/2023 01/0 06/2022, 04/10/2022, 04/04/2021, Additional history exists HbA1c 05/04/2023 11/01/2022, 01/0 06/2022, 04/10/2022, Additional history exists CKD HGB USE SMARTSET 40669 05/28/202305/28, 05/28/2022, 05/14/2022, Additional history exists Diabetic [...] D LEVEL ONCE IN A LIFETIME-USE SMARTSET# 94720 Completed 04/04/2021, 09/27/2020, 02/07/2020, Additional history exists [...] this encounter Medical Devices Implanted Type Area Training And Development Director Device Identifier Shelf Expiration Date Model / Serial / Lot Galaxy Xtrasoft 2.5 X 5 Coil [place]ed:Q[place] 1 [place]03[place] [facility] [place] Head [employer] REID LIDAMAN 07/03/2013 / [id number] / [id number] documented as of this encounter Advance Directives [...] Power of Attor eleanor? No Care Teams Electrical Superintendent Relationship Specialty Start Date End Date Zainab Herndon DO [address] [place] [address] [place] [address] PCP - General Internal Medicine 01/01/17 documented as of this encounter
--- OUTSIDE RECORDS SUMMARY | 2024-04-11 12:21 | External Medical Summary | Summary of Care ---
Author Name Unknown Organization [facility] Address [address] [facility] [place] [address] Phone [phone] Care Team Providers Care Euclid Operator Name Role Phone Zainab Herndon DO Primary Care Provider Reason for Visit * Reason Onset Date Comments Appointment 10/31/2023 Advice 10/31/2023 Encounter Details Date Type Department Care Team (Late st Contact Info) Description 10/31/2023 Telephone Family Medicine [address] [phone] Zainab Herndon DO [address] [place], [place] [address] [address] Appointment; Advice Allergies No known active [...] 01/09/2015 Memory deficits 03/13/2012 03/28/2020 Fall at [facility] 03/13/2012 012 Slow transit constipation 03/11/2012 SAH [...] Alas OSA - 11/03/2023 2:15 PM EDT Sana Sherwood is calling again. Pt was taken to [facility] ED in [place] on 10/31. Pt was told to follow up with Ortho after ED visit. Pt is in a lot of pain and family would like to know if a pain relieving mediation could be suggested/ordered. ED doctor did not prescribe any pain meds. Please reach out to Sana at [phone]. Thank you, ELANA Ayala * Telephone Encounter - Mar Puga RN - 11/01/2023 10:33 AM EDT I called granddaughter and advised they take her to [facility] ER today, to rule out fractures, [...] 12:30 PM EDT Office Visit Orthopaedics [address] [phone] mJ Burkett MD [address] [place] [address] 01/02/2024 8:50 AM EDT Office Visit Family Medicine [address] [phone] Zainab Herndon, [address] [place] [address] Health Maintenance Due Date Last Done Comments DTaP,Tdap,and Td Vaccines (1 - Tdap) 1954 Zoster Vaccines (1 of 2) 10/14/1987 Depression Screening 12/04/2018 12/04/2017 DXA Scan 09/28/2022 09/28/2020, 02/28, 08/02/2015, Additional history exists Diabetic Eye Exam 12/20/2022 12/20/2021, , 03/14/2016, Additional history exists COVID-19 Vaccine ( season) 2022 08/15/2020, 07/11/2020 Albumin/Creatinine Ratio 04/30/2023 023, 04/04/2021, 09/28/2020, Additional history exists CKD PHOS USE SMARTSET 18648 04/30/202306/2022, 04/10/2022, 04/04/2021, Additional history exists HbA1c 05/04/2023 11/01/2022, 06/2022, 04/10/2022, Additional history exists CKD HGB USE SMARTSET 12554 05/28/202305/28, 05/28/2022, 05/14/2022, Additional history exists Diabetic [...] D LEVEL ONCE IN A LIFETIME-USE SMARTSET# [id number] Completed 04/04/2021, 09/27/2020, 02/07/2020, Additional history exists [...] this encounter Medical Devices Implanted Type Area Button Broacher Device Identifier Shelf Expiration Date Model / Serial / Lot Galaxy Xtrasoft 2.5 X 5 Coil Implanted:Qty: 1 on 02/03/2012 at [place] [facility] N/A: Head [employer] 07/03/2013 / [id number] / [id number] documented as of this encounter Advance Directives [...] Power of Attor eleanor? No Care Teams Euclid Operator Relationship Specialty Start Date End Date Zainab Herndon DO [address] [place] [address] [place] [address] PCP - General Internal Medicine 01/01/17 documented as of this encounter
--- OUTSIDE RECORDS SUMMARY | 2024-04-11 12:21 | External Medical Summary | Summary of Care ---
Author Name Unknown Organization [facility] Address [address] [facility] [place] [address] Phone [phone] Care Team Providers Care Oil And Gas Recruiter Name Role Phone Zainab Herndon DO Primary Care Provider Reason for Visit * Reason Onset Date Comments Appointment 10/31/2023 Advice 10/31/2023 Encounter Details Date Type Department Care Team (Late st Contact Info) Description 10/31/2023 Telephone Family Medicine [address] [phone] Zainab Herndon DO [address] [place], [place] [address] [address] Appointment; Advice Allergies No known active allergiesdocumented as of this encounter (statuses as of 11/05/2023) Medications Medication Sig Dispensed Refills Start Date [...] as of this encounter (statuses as of 11/05/2023) Active Problems Problem Noted Date Diagnosed Date [...] as of this encounter (statuses as of 11/05/2023) Resolved Problems Problem Noted Date Diagnosed Date [...] as of this encounter (statuses as of 11/05/2023) Immunizations Name Administration Dates Next Due COVID-19 [...] is calling again. Pt was taken to [facility] ED in [place] on 10/31. Pt was told to follow up with Ortho after ED visit. Pt is in a lot of pain and family would like to know if a pain relieving mediation could be suggested/ordered. ED doctor did not prescribe any pain meds. Please reach out to Sana at [phone]. Thank you, ELANA Ayala * Telephone Encounter - Mar Puga RN - 11/01/2023 10:33 AM EDT I called granddaughter and advised they take her to [facility] ER today, to rule out [...] 11/27/2023 12:30 PM EDT Office Visit Orthopaedics [address] [place] [address] Jm [facility] [place] [address] 01/02/2024 8:50 AM EDT Office Visit Family Medicine [address] [place] [phone] [address] [place] [address] Health Maintenance Due Date Last Done Comments DTaP,Tdap,and Td Vaccines (1 - Tdap) 1954 Zoster Vaccines (1 of 2) 10/14/1987 Depression Screening 12/04/2018 12/04/2017 DXA Scan 09/28/2022 09/28/2020, 02/28, 08/02/2015, Additional history exists Diabetic Eye Exam 12/20/2022 12/20/2021, , 03/14/2016, Additional history exists COVID-19 Vaccine ( season) 2022 08/15/2020, 07/11/2020 Albumin/Creatinine Ratio 04/30/2023 023, 04/04/2021, 09/28/2020, Additional history exists CKD PHOS USE SMARTSET 36296 04/30/202306/2022, 04/10/2022, 04/04/2021, Additional history exists HbA1c 05/04/2023 11/01/2022, 06/2022, 04/10/2022, Additional history exists CKD HGB USE SMARTSET 79341 05/28/202305/28, 05/28/2022, 05/14/2022, Additional history exists Diabetic [...] D LEVEL ONCE IN A LIFETIME-USE SMARTSET# [id number] Completed 04/04/2021, 09/27/2020, 02/07/2020, Additional history exists [...] this encounter Medical Devices Implanted Type Area Senior Quality Assurance Specialist Device Identifier Shelf Expiration Date Model / Serial / Lot Galaxy Xtrasoft 2.5 X 5 Coil Implanted:Qty: 1 on 02/03/2012 at [place] [facility] [place] N/A: Head [employer] 07/03/2013 / [id number] / [id number] documented as of this encounter Advance Directives [...] Power of Attor eleanor? No Care Teams Oil And Gas Recruiter Relationship Specialty Start Date End Date Zainab Herndon DO [address] [place] [address] [place] [phone] PCP - General Internal Medicine 01/01/17 documented as of this encounter
--- OUTSIDE RECORDS SUMMARY | 2024-04-11 12:21 | External Medical Summary | Summary of Care ---
Author Name Unknown Organization [facility] Address [address] [facility] [place] [address] Phone [phone] Care Team Providers Care Director Hardware Name Role Phone Zainab Herndon DO Primary Care Provider Reason for Visit * Reason Onset Date Comments Appointment 10/31/2023 Advice 10/31/2023 Encounter Details Date Type Department Care Team (Late st Contact Info) Description 10/31/2023 Telephone Family Medicine [address] [phone] Zainab Herndon DO [address] [place], [place] [address] [address] Appointment; Advice Allergies No known active allergiesdocumented as of this encounter (statuses as of 11/06/2023) Medications Medication Sig Dispensed Refills Start Date [...] as of this encounter (statuses as of 11/06/2023) Active Problems Problem Noted Date Diagnosed Date [...] as of this encounter (statuses as of 11/06/2023) Resolved Problems Problem Noted Date Diagnosed Date [...] as of this encounter (statuses as of 11/06/2023) Immunizations Name Administration Dates Next Due COVID-19 [...] is calling again. Pt was taken to [facility] ED in [place] on 10/31. Pt was told to follow up with Ortho after ED visit. Pt is in a lot of pain and family would like to know if a pain relieving mediation could be suggested/ordered. ED doctor did not prescribe any pain meds. Please reach out to Sana at [phone]. Thank you, ELANA Ayala * Telephone Encounter - Mar Puga RN - 11/01/2023 10:33 AM EDT I called granddaughter and advised they take her to [facility] ER today, to rule out fractures, granddaughter [...] 11/27/2023 12:30 PM EDT Office Visit Orthopaedics [address] [place] [phone] Jm Burkett MD [address] [place] [address] 01/02/2024 8:50 AM EDT Office Visit Family Medicine [address] [place] [phone] Zainab Herndon [address] [place] [address] Health Maintenance Due Date Last Done Comments DTaP,Tdap,and Td Vaccines (1 - Tdap) 1954 Zoster Vaccines (1 of 2) 10/14/1987 Depression Screening 12/04/2018 12/04/2017 DXA Scan 09/28/2022 09/28/2020, 02/28, 08/02/2015, Additional history exists Diabetic Eye Exam 12/20/2022 12/20/2021, , 03/14/2016, Additional history exists COVID-19 Vaccine ( season) 2022 08/15/2020, 07/11/2020 Albumin/Creatinine Ratio 04/30/2023 023, 04/04/2021, 09/28/2020, Additional history exists CKD PHOS USE SMARTSET 79729 04/30/20230 06/2022, 04/10/2022, 04/04/2021, Additional history exists HbA1c 05/04/2023 11/01/2022, 06/2022, 04/10/2022, Additional history exists CKD HGB USE SMARTSET 63707 05/28/202305/28, 05/28/2022, 05/14/2022, Additional history exists Diabetic [...] D LEVEL ONCE IN A LIFETIME-USE SMARTSET# 07010 Completed 04/04/2021, 09/27/2020, 02/07/2020, Additional history exists [...] this encounter Medical Devices Implanted Type Area Field Placement Director Device Identifier Shelf Expiration Date Model / Serial / Lot Galaxy Xtrasoft 2.5 X 5 Coil Implanted:Qty: 1 on 02/03/2012 at [place] [facility] N/A: Head [employer] 07/03/2013 / [id number] / [id number] documented as of this encounter Advance Directives [...] Power of Attor eleanor? No Care Teams Director Hardware Relationship Specialty Start Date End Date Zainab Herndon DO [address] [place] [address] [place] [phone] PCP - General Internal Medicine 01/01/17 documented as of this encounter
[2024-04-11] MEDS: INFLUENZA VACC TS2024-25(65y+)/PF (IIV3) 0.5mL Syr IM ONE (13:23)
[2024-04-11] MEDS ORDERED: LANTUS PER UNIT CHARGE SQ SCH (21:00)
[2024-04-11] MEDS: cefTRIAXone SODIUM 2,000 MG/50 ML BAG IV SCH (21:17)
[2024-04-11] MEDS: METOPROLOL TARTRATE 1 MG/ML VIAL IV STA (23:41)
[2024-04-11 23:55] LABS: Magnesium 2.1 mg/dl (1.7-2.4)
--- NOTE | 2024-04-12 06:03 | Electrocardiogram Report ---
Test Reason : Blood Pressure : */* mmHG Vent. Rate : 101 BPM Atrial Rate : 101 BPM P-R Int : 166 ms QRS Dur : 132 ms QT Int : 386 ms P-R-T Axes : 41 -49 109 degrees QTcB Int : 500 ms Sinus tachycardia Left axis deviation Left bundle branch block Abnormal ECG When compared with ECG of 15-Aug-2018 14:04, Premature ventricular complexes are no longer Present Confirmed by Evan Sotelo ([id number]) on 04/12/2024 6:03:27 AM Referred By: REFERRED SELF Confirmed By: Evan Sotelo
[2024-04-12 07:01] LABS: Hematocrit (blood only) 28.7 % (37.0-47.0); Hemoglobin 9.8 g/dl (12.0-16.0); Mean Corpuscular Hemoglobin 31.8 pg (25.0-34.0); Mean Corpuscular Hgb Conc 34.1 g/dL (32.0-36.0); Mean Corpuscular Volume 93.2 fL (80.0-100.0); Mean Platelet Volume 10.8 fL (9.4-12.4); Platelet Count 203 K/uL (130-400); RDW Coefficient of Variation 13.1 % (11.5-14.5); RDW Standard Deviation 44.7 fL (36.4-46.3); Red Blood Count 3.08 M/uL (4.20-5.40); White Blood Count 13.12 K/ul (4.8-10.8)
[2024-04-12 07:39] LABS: BUN Creatinine Ratio 20.3 (10-20); Calcium 8.6 mg/dl (8.6-10.3); Creatinine Clr Calc Pharmacy 29.8 ml/min; Magnesium 1.9 mg/dl (1.7-2.4); Phosphorus 2.1 mg/dl (2.5-4.9); Potassium 3.3 mmol/L (3.5-5.1)
--- NOTE | 2024-04-12 08:36 | Orthopedic Consultation ---
Date of Service April 12, 2024 Assessment & Plan (1) T12 compression fracture: Plan Patient is admitted for DKA and encephalopathy which appears to is resolved. In terms of her thoracic fracture continues with back pain however improving. Mobilize as tolerated. She would benefit from a TLSO brace to assist her with pain control. Order was placed over the weekend however brace has not been fitted yet. Fracture pattern is stable, braces to be used when out of bed for pain control only. No lifting greater than 5 pounds. Once pain controlled and ambulating well, okay for follow-up in the office in 2 to 3 weeks. History of Present Illness Reason for Consultation: . Requesting Physician: . Attending Physician: Mark Anthony Faust MD No new issues overnight, patient continues with back pain in the lower thoracic region. Orthotics consult has been placed however they have not shown up to get her brace which would help with pain control. Allergies Allergy/AdvReac Type Severity Reaction Status Date / Time No Known Allergies Allergy Unverified 08/15/18 15:13 Home Medications Medication Instructions Recorded Confirmed Type amlodipine 10 mg tablet 10 mg PO DAILY 08/15/18 04/10/24 History atorvastatin 10 mg tablet 10 mg PO DAILY 04/10/24 04/10/24 History glipizide 2.5 mg tablet, extended 2.5 mg PO DAILY 04/10/24 04/10/24 History release 24 hr lisinopril 5 mg tablet 5 mg PO DAILY 04/10/24 04/10/24 History metoprolol succinate 25 mg 25 mg PO DAILY 04/10/24 04/10/24 History tablet,extended release 24 hr pantoprazole 40 mg tablet,delayed 40 mg PO DAILY 04/10/24 04/10/24 History release Past Med/Surg History Problem List (Updated 04/11/24 @ 01:31 by Matt Norris MD) Encephalopathy T12 compression fracture (Acute) Acute dehydration (Acute) Hyperglycemia due to type 2 diabetes mellitus (Acute) High anion gap metabolic acidosis (Acute) MATHIEU (acute kidney injury) (Acute) Acute UTI (Acute) Cerebral aneurysm Medical History History of gastroesophageal reflux (GERD) Hyperlipidemia Type 2 diabetes mellitus Hypertension Social History Smoking Status: Unknown if ever smoked Hx Alcohol Use: No Hx Substance Use: No Preferred Language: Macedonian Collar Setter Required: No Beliefs That Will Affect Care: None Current Living Situation: Spouse Feels Safe at Home: Yes Safety Concerns: Feels Safe At This Time Assistive Devices: Cane, Denture - Upper and Walker Assistive Devices Comment: pt states she has a walker and cane at home Review of Systems All systems reviewed & are unremarkable except as noted in HPI & below. Physical Exam Lower thoracic tenderness Motor strength is 5/5 in bilateral hip flexors, quadriceps, tibialis anterior, extensor hallucis longus, and gastroc/soleus complex Sensation intact to light touch in the L2-S1 dermatomes bilaterally 2+ reflexes at the achilles and patella tendons bilaterally No ankle clonus Results & Data Results & Data Laboratory Results . Diagnostic Findings . PG Care Time/CCT Total # of Minutes Spent Total Time Spent with Patient: Total time spent is greater than 50% in coordination of care (as documented) at patient's floor/unit and/or counseling patient: Coding Level of Care Code 62909 IN/OBS CONSULT LVL 2,35M Diagnoses T12 compression fracture S22.080A Encounter type: initial encounter (1) T12 compression fracture Encounter type: initial encounter Qualified Code(s): S22.080A - Wedge compression fracture of T11-T12 vertebra, initial encounter for closed fracture
[2024-04-12] MEDS: POTASSIUM CHLORIDE CRTAB 20 MEQ TABCR PO STA (09:03)
[2024-04-12] MEDS: POT PHOSPHATE MONOBASIC W/ SOD TAB PO SCH (09:04)
[2024-04-12] MEDS: lisinopril 5 MG TAB PO SCH (09:49)
--- NOTE | 2024-04-12 10:57 | Hospitalist Progress Note ---
Date of Service April 12, 2024 Assessment & Plan (1) Encephalopathy: Plan: 88-year-old lady with PMH of chronic LBBB, HTN, HLD, SAH status post coil embolization, CKD [baseline creatinine 1.2], T2DM on oral meds, GERD, dementia, mood disorder was brought to the ED with complaint of confusion. 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 She is being managed for the following: Complicated UTI Severe sepsis POA: Secondary to above. WBC, Pulse rate, lactic elevated at presentation. MATHIEU for CKD noted at presentation. Metabolic encephalopathy: Secondary to above in the setting of dementia. Generalized weakness: Secondary to above Patient presents with confusion and worsening weakness. Admitting UA suggestive of UTI, follow admitting blood culture and urine culture. Continue with Zosyn 04/10 (history E. coli, Enterococcus on review of prior urine CS) --> rocephin (uti +ve for e coli). Patient remains awake and alert, vitals more stable. BP better. PT/OT Follow cultures, blood cx for 48 hours. MATHIEU over CKD III: Baseline creatinine of 1.2, admitting creatinine of 2.2. Status post IV fluid, creatinine resolved. Resume home lisinopril. Avoid nephrotoxic, labs in AM. Uncontrolled hyperglycemia: History of T2DM on oral medications, A1c of 6.9 in December 2023. A1c of 8.0 this admission. Hold home glipizide, continue sliding scale insulin while in hospital. Repeat A1c in 3 months. Follow-up with diabetic clinic upon discharge for ongoing monitoring/management. Demand ischemia: Troponin initially up trended then flat trended around 300. Patient with no chest pain. Admitting EKG with sinus tachycardia. Likely secondary to acute illness. Continue telemetry monitoring. Traumatic T12 compression fracture: Patient currently denies pain, orthospine evaluated, patient appreciated the medicine. TLSO brace when OOB, PT/OT. no lifting greater than 5 pounds, no bending, twisting turning. f/u in 2-3 weeks. Hypothyroidism: Patient with TSH of 11.1 at presentation. Initiated levothyroxine, continue. Repeat thyroid function test in 6 weeks, follow-up with PCP office for ongoing monitoring/management. Other chronic medical conditions: Continue with/resume home meds as when able. chronic LBBB hypertension, BP fairly under control. hyperlipidemia, on statin Rx history SAH status post coil embolization DVT prophylaxis. SCDs re: history SAH PT OT, can dc in 1-2 days. might need snf. DNR/dni Patient's /POA, Mr. Ronaldo Mcleod [phone]. Text document was generated using [employer] voice recognition software. It may contain grammatical or spelling errors. Kindly contact undersigned for clarification of any documentation item in question. Admission and Anticipated Discharge Date Admission Date: April 10, 2024 Subjective Patient was seen and examined at bedside. Patient was lying in bed, on room air, resting comfortably. Per RN, patient is doing better, no further diarrhea /loose stool in AM, eating ok. Patient reports some back pain, fairly under control. Physical Exam Physical Exam: GENERAL: Demented, comfortable, no respiratory distress, alert and awake. SKIN: Normal color, warm HEENT: Fontenelle palpebral conjunctivae, no ptosis, moist buccal mucosa NECK : Supple, no tenderness CHEST : CTA, no tenderness HEART : RRR, no obvious murmurs BACK : Minimal mid back tenderness. ABDOMEN: Some distention, nontender EXTREMITIES : No LE swelling/tenderness, no other conspicuous deformities noted NEUROLOGIC : Demented, no facial asymmetry, MMTS BUE 4/5. BLE 4/5, gait and stance not assessed Results & Data Results & Data Vital Signs (Past 12 Hours) Vital Signs Temp Pulse Pulse Resp BP BP Pulse Ox 04/12/24 07:50 37.2 C 103 H 18 142/70 H 90 04/12/24 07:36 04/12/24 07:11 105 H 04/12/24 03:48 37.1 C 64 16 139/70 95 04/12/24 00:06 108 H 159/77 H 04/12/24 00:00 113 H 04/11/24 23:41 113 H 159/77 H 04/11/24 23:18 36.8 C 111 H 16 159/77 H 92 O2 Del Method 04/12/24 07:50 Room Air 04/12/24 07:36 Room Air 04/12/24 07:11 04/12/24 03:48 Room Air 04/12/24 00:06 04/12/24 00:00 04/11/24 23:41 04/11/24 23:18 Room Air
[2024-04-12] MEDS: ACETAMINOPHEN 325 MG TAB PO PRN (11:41)
[2024-04-12 13:21] LABS: HCO3 VBG 22 mmol/L; Oxygen Saturation VBG 64.3 %; PCO2 VBG 32 mmHg (38-50); PO2 VBG 36 mmHg; pH VBG 7.45 (7.36-7.41)
--- NOTE | 2024-04-12 13:40 | XRay Report ---
XR chest 1V portable CLINICAL HISTORY: ? aspiration COMPARISON STUDY: Chest CT April 10, 2024. Chest radiograph April 11, 2024. FINDINGS: There is no pneumothorax. Mild interstitial thickening has developed. Moderate right basila r opacity has also developed. Cardiomegaly and extensive mitral annular calcification are present. Th ere is a small right pleural effusion. IMPRESSION: 1. Interval development of moderate right basilar opacity suggestive of pneumonia or aspiration pneum onitis. 2. Suspected small right pleural effusion. 3. Cardiomegaly with pulmonary vascular congestion. ACT 112: Negative or not required by law. Electronically signed by: Kris Gordon M.D. 04/12/2024 1:39 PM
--- NOTE | 2024-04-12 23:52 | Communication Note ---
Date of Service: April 12, 2024 Patient noted to be in rapid A-fib as per RN. Patient comfortable. Patient later noted to be febrile. No unusual cough symptoms as per RN. Chest x-ray 04/12 1. Interval development of moderate right basilar opacity suggestive of pneumonia or aspiration pneumonitis. 2. Suspected small right pleural effusion. 3. Cardiomegaly with pulmonary vascular congestion. AP Recurrent A-fib (History A-fib from 2011 as per outpatient records) Possibly from sepsis from hospital-acquired pneumonia/aspiration pneumonia (emesis episodes prior to admission) Titrate home beta-diya Zosyn in place of ceftriaxone (currently being given for UTI) for hospital- acquired pneumonia/aspiration pneumonia.
[2024-04-13] MEDS: METOPROLOL TARTRATE 1 MG/ML VIAL IV STA ×2 (00:12→03:37)
[2024-04-13] MEDS: POTASSIUM CHLORIDE CRTAB 20 MEQ TABCR PO STA ×2 (00:12→15:26)
[2024-04-13] MEDS: MAGNESIUM SULFATE / D5W 1 GM/100 ML BAG IV ONE (00:13)
[2024-04-13] MEDS: METOPROLOL SUCC 25MG EXT REL TAB PO SCH (00:53)
[2024-04-13] MEDS: ALBUMIN 25% 12.5 GM/50 ML VIAL IV ONE (03:38)
[2024-04-13] MEDS: ACETAMINOPHEN 500 MG TAB PO STA (03:38)
[2024-04-13] MEDS: PIPERACILLIN/TAZOBACTAM 4.5 GM/100 ML BAG IV SCH (05:45)
[2024-04-13 08:47] LABS: Hematocrit (blood only) 28.3 % (37.0-47.0); Hemoglobin 9.4 g/dl (12.0-16.0); Mean Corpuscular Hemoglobin 31.1 pg (25.0-34.0); Mean Corpuscular Hgb Conc 33.2 g/dL (32.0-36.0); Mean Corpuscular Volume 93.7 fL (80.0-100.0); Platelet Count 209 K/uL (130-400); RDW Coefficient of Variation 13.1 % (11.5-14.5); Red Blood Count 3.02 M/uL (4.20-5.40); White Blood Count 12.96 K/ul (4.8-10.8)
[2024-04-13] MEDS: LANTUS PER UNIT CHARGE SQ SCH (08:58)
[2024-04-13 09:04] LABS: Calcium 8.5 mg/dl (8.6-10.3); Creatinine Clr Calc Pharmacy 25.5 ml/min; Magnesium 2.2 mg/dl (1.7-2.4); Phosphorus 2.9 mg/dl (2.5-4.9); Potassium 3.5 mmol/L (3.5-5.1)
--- NOTE | 2024-04-13 11:54 | Fluoroscopy Report ---
FL video swallow CLINICAL HISTORY: 88 years-old Female with assess for aspiration. Dysphagia with possible aspiration TECHNIQUE: Video fluoroscopic evaluation of swallowing was performed in the AP and lateral projection s by the speech pathology staff. The patient is fed varying consistencies of barium. FLUOROSCOPY TIME: 1.33 minutes. 2660 images were obtained. 5.21 mGy COMPARISON STUDY: None. FINDINGS: There is normal hyoid excursion and epiglottic deflection. No significant penetration or as piration identified. Swallowing function is within normal limits. Soft tissue dysmotility with retent ion, notably with pudding consistency. IMPRESSION: 1. No aspiration identified. 2. Please see the speech pathologist report for detailed findings and recommendations. ACT 112: Negative or not required by law. Electronically signed by: Jone Rhodes M.D. 04/13/2024 11:53 AM
--- NOTE | 2024-04-13 15:00 | Hospitalist Progress Note ---
Date of Service April 13, 2024 Assessment & Plan (1) Encephalopathy: Plan: 88-year-old lady with PMH of chronic LBBB, HTN, HLD, SAH status post coil embolization, CKD [baseline creatinine 1.2], T2DM on oral meds, GERD, dementia, mood disorder was brought to the ED with complaint of confusion. 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 She is being managed for the following: Complicated UTI Severe sepsis POA: Secondary to above. WBC, Pulse rate, lactic elevated at presentation. MATHIEU for CKD noted at presentation. Metabolic encephalopathy: Secondary to above in the setting of dementia. Generalized weakness: Secondary to above Patient presents with confusion and worsening weakness. Admitting UA suggestive of UTI, follow admitting blood culture and urine culture. Continue with Zosyn 04/10 (history E. coli, Enterococcus on review of prior urine CS) --> rocephin 04/11 (uti +ve for e coli) --> back to zosyn 04/13 due to aspiration event/spike in temp/afib rvr event the night of 04/12 to 04/13. Patient remains awake and alert, vitals more stable. BP better. HR in Afib rvr w/ rates in 110s PT/OT Follow cultures, neg blood cx for 48 hours. UCx +ve for E coli AFib RVR: has h/o afib, went into rvr 04/12 evening likely iso infection. Titrate home metoprolol, c/w telemetry. Pt w/ no chest pain or sob. HR is 100- 110s currently. 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 Called pt's to get more idea into this/confirm this, but couldn't connect. Will monitor wo anticoagulation for now until more information/discussion could be had in this regard. MATHIEU over CKD III: Baseline creatinine of 1.2, admitting creatinine of 2.2. Status post IV fluid, creatinine resolved. c/w home lisinopril. Avoid nephrotoxic, labs in AM. Uncontrolled hyperglycemia: History of T2DM on oral medications, A1c of 6.9 in December 2023. A1c of 8.0 this admission. Hold home glipizide, continue sliding scale insulin while in hospital. Repeat A1c in 3 months. Follow-up with diabetic clinic upon discharge for ongoing monitoring/management. Demand ischemia: Troponin initially up trended then flat trended around 300. Patient with no chest pain. Admitting EKG with sinus tachycardia. Likely secondary to acute illness. Continue telemetry monitoring. Traumatic T12 compression fracture: Patient currently denies pain, orthospine evaluated, patient appreciated the medicine. TLSO brace when OOB, PT/OT. no lifting greater than 5 pounds, no bending, twisting turning. f/u in 2-3 weeks. Hypothyroidism: Patient with TSH of 11.1 at presentation. Initiated levothyroxine, continue. Repeat thyroid function test in 6 weeks, follow-up with PCP office for ongoing monitoring/management. Other chronic medical conditions: Continue with/resume home meds as when able. chronic LBBB hypertension, BP fairly under control. hyperlipidemia, on statin Rx history SAH status post coil embolization DVT prophylaxis. SCDs re: history SAH PT OT, will need snf. DNR/dni Patient's /POA, Mr. Ronaldo Mcleod [phone]. Called this number 04/13 for update and further inquiry into pt's h/o afib, couldn't connect, couldn't leave VM as inbox was full. Text document was generated using [employer] voice recognition software. It may contain grammatical or spelling errors. Kindly contact undersigned for clarification of any documentation item in question. Admission and Anticipated Discharge Date Admission Date: April 10, 2024 Subjective Patient was seen and examined at bedside. Patient was lying in bed, on room air, resting comfortably. Eating her breakfast. Per RN, patient is doing better, 2 loose stools yesterday and 1 overnight, none today AM, eating ok. Patient reports no back pain, reports pain fairly under control. Physical Exam Physical Exam: GENERAL: Demented, comfortable, no respiratory distress, alert and awake. SKIN: Normal color, warm HEENT: [place] palpebral conjunctivae, no ptosis, moist buccal mucosa NECK : Supple, no tenderness CHEST : RLL crackles noted, no tenderness HEART : irregular in 100s-110s, no obvious murmurs BACK : Minimal mid back tenderness. ABDOMEN: Some distention, nontender EXTREMITIES : No LE swelling/tenderness, no other conspicuous deformities noted NEUROLOGIC : Demented, no facial asymmetry, MMTS BUE 4/5. BLE 4/5, gait and stance not assessed Results & Data Results & Data Vital Signs (Past 12 Hours) Vital Signs Temp Pulse Pulse Resp BP BP Pulse Ox 04/13/24 13:02 112 H 04/13/24 12:07 36.9 C 108 H 16 161/75 H 95 04/13/24 07:44 04/13/24 07:21 36.8 C 112 H 16 118/65 94 04/13/24 05:44 119 H 04/13/24 04:19 109 H 112/70 04/13/24 03:37 116 H 116/70 04/13/24 03:22 37.6 C H 114 H 28 H 116/70 94 O2 Del Method O2 Flow Rate 04/13/24 13:02 04/13/24 12:07 Nasal Cannula 3 04/13/24 07:44 Nasal Cannula 2 04/13/24 07:21 Nasal Cannula 2 04/13/24 05:44 04/13/24 04:19 04/13/24 03:37 04/13/24 03:22 Nasal Cannula 2
[2024-04-13] MEDS: METOPROLOL TARTRATE 1 MG/ML VIAL IV PRN (17:40)
[2024-04-14 08:28] LABS: Hematocrit (blood only) 33.7 % (37.0-47.0); Hemoglobin 11.3 g/dl (12.0-16.0); Mean Corpuscular Hemoglobin 31.7 pg (25.0-34.0); Mean Corpuscular Hgb Conc 33.5 g/dL (32.0-36.0); Mean Corpuscular Volume 94.4 fL (80.0-100.0); Mean Platelet Volume 10.5 fL (9.4-12.4); Platelet Count 242 K/uL (130-400); RDW Standard Deviation 44.9 fL (36.4-46.3); Red Blood Count 3.57 M/uL (4.20-5.40); White Blood Count 12.05 K/ul (4.8-10.8)
[2024-04-14 08:38] LABS: Calcium 8.8 mg/dl (8.6-10.3); Magnesium 1.9 mg/dl (1.7-2.4); Potassium 4.1 mmol/L (3.5-5.1)
[2024-04-14] MEDS: SODIUM CHLOR 7% 4 ML NEB NEB SCH (08:42)
[2024-04-14] MEDS: ALBUT/IPRATROP 3MG/0.5MG NEB 3 ML VIAL NEB SCH (08:42)
[2024-04-14 08:45] LABS: BUN Creatinine Ratio 19.8 (10-20); Creatinine Clr Calc Pharmacy 28.6 ml/min; Phosphorus 4.5 mg/dl (2.5-4.9)
[2024-04-14] MEDS: METOPROLOL TARTRATE 25 MG TAB PO SCH (09:58)
--- NOTE | 2024-04-14 12:38 | Hospitalist Progress Note ---
Date of Service April 14, 2024 Assessment & Plan (1) Encephalopathy: Plan: 88-year-old lady with PMH of chronic LBBB, HTN, HLD, SAH status post coil embolization, CKD [baseline creatinine 1.2], T2DM on oral meds, GERD, dementia, mood disorder was brought to the ED with complaint of confusion. 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 She is being managed for the following: Complicated UTI Severe sepsis POA: Secondary to above. WBC, Pulse rate, lactic elevated at presentation. MATHIEU for CKD noted at presentation. Metabolic encephalopathy: Secondary to above in the setting of dementia. Resolved Generalized weakness: Secondary to above Patient presents with confusion and worsening weakness. Admitting UA suggestive of UTI, Urine culture growing E. coli. Blood culture negative Chest x-ray from 04/12 personally reviewed; opacity in right lower lung field; mild volume congestion. Continue on Zosyn to cover for UTI and possible aspiration pneumonia. Airway clearance therapy with hypertonic saline, DuoNebs. Patient remains awake and alert, vitals more stable. PT/OT AFib RVR: has h/o afib, went into rvr 04/12 evening likely iso infection. 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 Metoprolol dose increased to 25 mg 3 times daily for rate control MATHIEU over CKD III: Baseline creatinine of 1.2, admitting creatinine of 2.2. Status post IV fluid, creatinine resolved. c/w home lisinopril. Avoid nephrotoxic, labs in AM. Uncontrolled hyperglycemia: History of T2DM on oral medications, A1c of 6.9 in December 2023. A1c of 8.0 this admission. Hold home glipizide, continue sliding scale insulin while in hospital. Repeat A1c in 3 months. Follow-up with diabetic clinic upon discharge for ongoing monitoring/management. Demand ischemia: Troponin initially up trended then flat trended around 300. Patient with no chest pain. Admitting EKG with sinus tachycardia. Likely secondary to acute illness. Continue telemetry monitoring. Traumatic T12 compression fracture: Patient currently denies pain, orthospine e valuated, TLSO brace when OOB, PT/OT. no lifting greater than 5 pounds, no bending, twisting turning. f/u in 2-3 weeks. Hypothyroidism: Patient with TSH of 11.1 at presentation. Initiated levothyroxine, continue. Repeat thyroid function test in 6 weeks, follow-up with PCP office for ongoing monitoring/management. Other chronic medical conditions: Continue with/resume home meds as when able. chronic LBBB hypertension, BP fairly under control. hyperlipidemia, on statin Rx history SAH status post coil embolization DVT prophylaxis. SCDs re: history SAH PT OT, will need snf. DNR/dni Time spent evaluating patient, direct bedside care, chart review, placing orders, interpretation of diagnostic studies, discussion with consultants, patient, and family members, as well as other required patient management activities is 50-minute Please note the above document was generated using voice recognition software. It may contain grammatical, syntax or spelling errors. Any formal questions or concerns about the content, text or information contained within the body of this dictation should be directly addressed to the provider for clarification Admission and Anticipated Discharge Date Admission Date: April 10, 2024 Subjective Patient is awake and interactive. She reports she is feeling better. She denies feeling shortness of breath, chest pain or abdominal pain. No significant events overnight Review of Systems Review of Systems: All systems reviewed & are unremarkable except as noted in Subjective Physical Exam Physical Exam: GENERAL: Demented, comfortable, no respiratory distress, alert and awake. SKIN: Normal color, warm HEENT: [place] palpebral conjunctivae, no ptosis, moist buccal mucosa NECK : Supple, no tenderness CHEST : RLL crackles noted, no tenderness HEART : irregular in 100s-110s, no obvious murmurs BACK : Minimal mid back tenderness. ABDOMEN: Some distention, nontender EXTREMITIES : No LE swelling/tenderness, no other conspicuous deformities noted NEUROLOGIC : Demented, no facial asymmetry, MMTS BUE 4/5. BLE 4/5, gait and stance not assessed Results & Data Results & Data Vital Signs (Past 12 Hours) Vital Signs Temp Pulse Pulse Resp BP BP Pulse Ox 04/14/24 11:20 36.9 C 110 H 18 125/71 95 04/14/24 08:44 96 H 16 96 04/14/24 08:00 36.7 C 119 H 20 143/84 H 96 12/18/24 07:48 04/14/24 05:50 101 H 04/14/24 02:59 37.2 C 105 H 18 143/90 H 93 O2 Del Method O2 Flow Rate 04/14/24 11:20 Nasal Cannula 2 04/14/24 08:44 Nasal Cannula 2 04/14/24 08:00 Nasal Cannula 2 04/14/24 07:48 Nasal Cannula 2 04/14/24 05:50 04/14/24 02:59 Nasal Cannula 2
--- NOTE | 2024-04-14 21:25 | Electrocardiogram Report ---
Test Reason : Blood Pressure : */* mmHG Vent. Rate : 132 BPM Atrial Rate : 129 BPM P-R Int : * ms QRS Dur : 130 ms QT Int : 350 ms P-R-T Axes : * -48 126 degrees QTcB Int : 518 ms Atrial fibrillation with rapid ventricular response Left axis deviation Left bundle branch block Abnormal ECG When compared with ECG of 12-Apr-2024 23:58, No significant change was found Confirmed by Evan Sotelo ([id number]) on 04/14/2024 9:25:40 PM Referred By: REFERRED SELF Confirmed By: Evan Sotelo
--- NOTE | 2024-04-14 21:25 | Electrocardiogram Report ---
Test Reason : Blood Pressure : */* mmHG Vent. Rate : 129 BPM Atrial Rate : 178 BPM P-R Int : * ms QRS Dur : 124 ms QT Int : 352 ms P-R-T Axes : * -50 132 degrees QTcB Int : 515 ms Atrial fibrillation with rapid ventricular response with premature ventricular or aberrantly conducte d complexes Left axis deviation Left bundle branch block Abnormal ECG When compared with ECG of 10-Apr-2024 16:57, Atrial fibrillation has replaced Sinus rhythm Confirmed by Evan Sotelo ([id number]) on 04/14/2024 9:25:16 PM Referred By: REFERRED SELF Confirmed By: Evan Sotelo
[2024-04-15] MEDS: LOPERAMIDE HCL 2 MG CAP PO STA (04:18)
[2024-04-15 06:29] LABS: Basophils # (auto) 0.05 K/uL (0.00-0.20); Basophils % (auto) 0.5 %; Eosinophils # (auto) 0.27 K/uL (0.00-0.50); Eosinophils % (auto) 2.8 %; Immature Granulocytes # (auto) 0.32 K/uL (0.01-0.20); Immature Granulocytes % (auto) 3.3 %; Lymphocytes % (auto) 14.3 %; Mean Corpuscular Hemoglobin 31.3 pg (25.0-34.0); Mean Corpuscular Hgb Conc 33.3 g/dL (32.0-36.0); Mean Platelet Volume 10.4 fL (9.4-12.4); Monocytes # (auto) 0.84 K/uL (0.11-0.59); Monocytes % (auto) 8.6 %; Neutrophils # (auto) 6.92 K/uL (1.40-6.50); Neutrophils % (auto) 70.5 %; Platelet Count 253 K/uL (130-400); RDW Coefficient of Variation 13.1 % (11.5-14.5); RDW Standard Deviation 44.8 fL (36.4-46.3); Red Blood Count 3.19 M/uL (4.20-5.40)
[2024-04-15 06:45] LABS: BUN Creatinine Ratio 21.4 (10-20); Calcium 8.9 mg/dl (8.6-10.3); Creatinine Clr Calc Pharmacy 28.6 ml/min; Potassium 3.8 mmol/L (3.5-5.1)
--- NOTE | 2024-04-15 08:29 | Hospitalist Progress Note ---
Date of Service April 15, 2024 Assessment & Plan (1) Encephalopathy: Plan: 88-year-old lady with PMH of chronic LBBB, HTN, HLD, SAH status post coil embolization, CKD [baseline creatinine 1.2], T2DM on oral meds, GERD, dementia, mood disorder was brought to the ED with complaint of confusion. 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 She is being managed for the following: Complicated UTI Severe sepsis POA: Secondary to above. WBC, Pulse rate, lactic elevated at presentation. MATHIEU for CKD noted at presentation. Metabolic encephalopathy: Secondary to above in the setting of dementia. Resolved Generalized weakness: Secondary to above Patient presents with confusion and worsening weakness. Admitting UA suggestive of UTI, Urine culture growing E. coli. Blood culture negative Chest x-ray from 04/12 personally reviewed; opacity in right lower lung field; mild volume congestion. Continue on Zosyn to cover for UTI and possible aspiration pneumonia. Airway clearance therapy with hypertonic saline, DuoNebs. Patient remains awake and alert PT/OT AFib RVR: has h/o afib, went into rvr 04/12 evening likely iso infection. 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 Metoprolol dose increased to 25 mg 3 times daily for rate control MATHIEU over CKD III: Baseline creatinine of 1.2, admitting creatinine of 2.2. Status post IV fluid, creatinine resolved. c/w home lisinopril. Avoid nephrotoxic, labs in AM. Uncontrolled hyperglycemia: History of T2DM on oral medications, A1c of 6.9 in December 2023. A1c of 8.0 this admission. Hold home glipizide, continue sliding scale insulin while in hospital. Repeat A1c in 3 months. Follow-up with diabetic clinic upon discharge for ongoing monitoring/management. Demand ischemia: Troponin initially up trended then flat trended around 300. Patient with no chest pain. Admitting EKG with sinus tachycardia. Likely secondary to acute illness. Continue telemetry monitoring. Traumatic T12 compression fracture: Patient currently denies pain, orthospine evaluated, TLSO brace when OOB, PT/OT. no lifting greater than 5 pounds, no bending, twisting turning. f/u in 2-3 weeks. Hypothyroidism: Patient with TSH of 11.1 at presentation. Initiated levothyroxine, continue. Repeat thyroid function test in 6 weeks, follow-up with PCP office for ongoing monitoring/management. Other chronic medical conditions: Continue with/resume home meds as when able. chronic LBBB hypertension, BP fairly under control. hyperlipidemia, on statin Rx history SAH status post coil embolization DVT prophylaxis heparin PT OT, will need snf. awaiting placement DNR/dni Time spent evaluating patient, direct bedside care, chart review, placing orders, interpretation of diagnostic studies, discussion with consultants, patient, and family members, as well as other required patient management activities is 50-minute Please note the above document was generated using voice recognition software. It may contain grammatical, syntax or spelling errors. Any formal questions or concerns about the content, text or information contained within the body of this dictation should be directly addressed to the provider for clarification Admission and Anticipated Discharge Date Admission Date: April 10, 2024 Subjective Patient seen and examined at bedside. Comfortable; not in distress. Denies fever, chills, chest pain, shortness of breath, abdominal pain or urinary symptoms. No significant overnight events Review of Systems Review of Systems: All systems reviewed & are unremarkable except as noted in Subjective Physical Exam Physical Exam: GENERAL: Demented, comfortable, no respiratory distress, alert and awake. SKIN: Normal color, warm HEENT: [place] palpebral conjunctivae, no ptosis, moist buccal mucosa NECK : Supple, no tenderness CHEST : RLL crackles noted, no tenderness HEART : irregular in 100s-110s, no obvious murmurs BACK : Minimal mid back tenderness. ABDOMEN: Some distention, nontender EXTREMITIES : No LE swelling/tenderness, no other conspicuous deformities noted NEUROLOGIC : Demented, no facial asymmetry, MMTS BUE 4/5. BLE 4/5, gait and stance not assessed Results & Data Results & Data Vital Signs (Past 12 Hours) Vital Signs Temp Pulse Pulse Resp BP BP Pulse Ox 04/15/24 07:48 36.6 C 73 16 109/75 92 04/15/24 07:17 04/15/24 07:04 86 16 91 04/15/24 05:45 111 H 04/15/24 03:22 37.1 C 84 16 122/75 97 04/14/24 22:47 36.9 C 101 H 18 121/56 L 91 04/14/24 21:52 114 H O2 Del Method O2 Flow Rate 04/15/24 07:48 Nasal Cannula 2 04/15/24 07:17 Nasal Cannula, Aerosol Mask 2 04/15/24 07:04 Nasal Cannula 2 04/15/24 05:45 04/15/24 03:22 Nasal Cannula 2 04/14/24 22:47 Nasal Cannula 2 04/14/24 21:52
[2024-04-15] MEDS: HEPARIN SOD 5,000 UNIT/0.5 ML VIAL SQ SCH (08:54)
[2024-04-16] MEDS: LOPERAMIDE HCL 2 MG CAP PO STA ×2 (04:49→20:28)
[2024-04-16 05:07] LABS: Basophils # (auto) 0.05 K/uL (0.00-0.20); Basophils % (auto) 0.6 %; Eosinophils # (auto) 0.24 K/uL (0.00-0.50); Eosinophils % (auto) 2.9 %; Hematocrit (blood only) 28.5 % (37.0-47.0); Hemoglobin 9.5 g/dl (12.0-16.0); Immature Granulocytes # (auto) 0.34 K/uL (0.01-0.20); Immature Granulocytes % (auto) 4.1 %; Lymphocytes # (auto) 1.68 K/uL (1.20-3.40); Lymphocytes % (auto) 20.1 %; Mean Corpuscular Hemoglobin 31.5 pg (25.0-34.0); Mean Corpuscular Hgb Conc 33.3 g/dL (32.0-36.0); Mean Corpuscular Volume 94.4 fL (80.0-100.0); Mean Platelet Volume 10.3 fL (9.4-12.4); Monocytes # (auto) 0.89 K/uL (0.11-0.59); Monocytes % (auto) 10.6 %; Neutrophils # (auto) 5.16 K/uL (1.40-6.50); Neutrophils % (auto) 61.7 %; Platelet Count 279 K/uL (130-400); RDW Coefficient of Variation 13.2 % (11.5-14.5); RDW Standard Deviation 45.3 fL (36.4-46.3); Red Blood Count 3.02 M/uL (4.20-5.40); White Blood Count 8.36 K/ul (4.8-10.8)
[2024-04-16 05:24] LABS: BUN Creatinine Ratio 21.1 (10-20); Calcium 8.9 mg/dl (8.6-10.3); Creatinine Clr Calc Pharmacy 25.3 ml/min; Potassium 3.9 mmol/L (3.5-5.1)
[2024-04-16] MEDS: METOPROLOL TARTRATE 25 MG TAB PO STA (08:17)
--- NOTE | 2024-04-16 08:58 | Hospitalist Progress Note ---
Date of Service April 16, 2024 Assessment & Plan (1) Encephalopathy: Plan: 88-year-old lady with PMH of chronic LBBB, HTN, HLD, SAH status post coil embolization, CKD [baseline creatinine 1.2], T2DM on oral meds, GERD, dementia, mood disorder was brought to the ED with complaint of confusion. 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 She is being managed for the following: Complicated UTI Severe sepsis POA: Secondary to above. WBC, Pulse rate, lactic elevated at presentation. MATHIEU for CKD noted at presentation. Metabolic encephalopathy: Secondary to above in the setting of dementia. Resolved Generalized weakness: Secondary to above Patient presents with confusion and worsening weakness. Admitting UA suggestive of UTI, Urine culture growing E. coli. Blood culture negative Chest x-ray from 04/12 personally reviewed; opacity in right lower lung field; mild volume congestion. Will change Zosyn to Augmentin to cover for UTI and possible aspiration pneumonia. Plan for total of 7 days Airway clearance therapy with hypertonic saline, DuoNebs. Patient remains awake and alert PT/OT AFib RVR: has h/o afib, went into rvr 04/12 evening likely iso infection. 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 Metoprolol dose increased to 50 mg 3 times daily for rate control MATHIEU over CKD III: Baseline creatinine of 1.2 to 1.4, admitting creatinine of 2.2. Status post IV fluid, creatinine resolved. c/w home lisinopril. Avoid nephrotoxic, labs in AM. Uncontrolled hyperglycemia: History of T2DM on oral medications, A1c of 6.9 in December 2023. A1c of 8.0 this admission. Hold home glipizide, continue sliding scale insulin while in hospital. Repeat A1c in 3 months. Follow-up with diabetic clinic upon discharge for ongoing monitoring/management. Demand ischemia: Troponin initially up trended then flat trended around 300. Patient with no chest pain. Admitting EKG with sinus tachycardia. Likely secondary to acute illness. Continue telemetry monitoring. Traumatic T12 compression fracture: Patient currently denies pain, orthospine evaluated, TLSO brace when OOB, PT/OT. no lifting greater than 5 pounds, no bending, twisting turning. f/u in 2-3 weeks. Hypothyroidism: Patient with TSH of 11.1 at presentation. Initiated levothyroxine, continue. Repeat thyroid function test in 6 weeks, follow-up with PCP office for ongoing monitoring/management. Other chronic medical conditions: Continue with/resume home meds as when able. chronic LBBB hypertension, BP fairly under control. hyperlipidemia, on statin Rx history SAH status post coil embolization DVT prophylaxis heparin PT OT, will need snf. awaiting placement DNR/dni Updated patient's granddaughter Sana [phone]) over the phone. She is agreeable with the plan and will relay the information to the family. Please note the above document was generated using voice recognition software. It may contain grammatical, syntax or spelling errors. Any formal questions or concerns about the content, text or information contained within the body of this dictation should be directly addressed to the provider for clarification Admission and Anticipated Discharge Date Admission Date: April 10, 2024 Subjective Patient seen and examined at bedside. Comfortable; not in distress. Denies fever, chills, chest pain, shortness of breath, abdominal pain or urinary symptoms. No significant overnight events Review of Systems Review of Systems: All systems reviewed & are unremarkable except as noted in Subjective Physical Exam Physical Exam: GENERAL: Demented, comfortable, no respiratory distress, alert and awake. SKIN: Normal color, warm HEENT: [employer] palpebral conjunctivae, no ptosis, moist buccal mucosa NECK : Supple, no tenderness CHEST : RLL crackles noted, no tenderness HEART : irregular in 100s-110s, no obvious murmurs BACK : Minimal mid back tenderness. ABDOMEN: Some distention, nontender EXTREMITIES : No LE swelling/tenderness, no other conspicuous deformities noted NEUROLOGIC : Demented, no facial asymmetry, MMTS BUE 4/5. BLE 4/5, gait and stance not assessed Results & Data Results & Data Vital Signs (Past 12 Hours) Vital Signs Temp Pulse Pulse Pulse Resp BP Pulse Ox 04/16/24 07:50 04/16/24 07:42 85 15 93 04/16/24 07:35 36.7 C 110 H 16 124/86 94 04/16/24 06:36 88 04/16/24 05:44 96 H 04/16/24 03:43 37.2 C 124 H 18 103/70 91 04/15/24 22:02 36.8 C 109 H 18 142/80 H 93 04/15/24 21:49 123 H O2 Del Method O2 Flow Rate 04/16/24 07:50 Nasal Cannula 2 04/16/24 07:42 Nasal Cannula 2 04/16/24 07:35 Nasal Cannula 2 04/16/24 06:36 04/16/24 05:44 04/16/24 03:43 Nasal Cannula 2 04/15/24 22:02 Nasal Cannula 2 04/15/24 21:49
[2024-04-16] MEDS: METOPROLOL TARTRATE 50 MG TAB PO SCH (13:00)
[2024-04-16] MEDS: AMOXICILLIN/CLAVULANATE 500 MG TAB PO SCH (20:29)
[2024-04-16] MEDS: MENTHOL-ZINC OXIDE 360 APPLN/120 GM TUBE EXT SCH (23:15)
[2024-04-17 07:45] LABS: Hematocrit (blood only) 30.1 % (37.0-47.0); Hemoglobin 9.8 g/dl (12.0-16.0); Mean Corpuscular Hemoglobin 31.3 pg (25.0-34.0); Mean Corpuscular Hgb Conc 32.6 g/dL (32.0-36.0); Mean Corpuscular Volume 96.2 fL (80.0-100.0); Mean Platelet Volume 10.2 fL (9.4-12.4); Platelet Count 295 K/uL (130-400); RDW Coefficient of Variation 13.4 % (11.5-14.5); RDW Standard Deviation 47.6 fL (36.4-46.3); Red Blood Count 3.13 M/uL (4.20-5.40); White Blood Count 7.04 K/ul (4.8-10.8)
[2024-04-17 08:01] LABS: BUN Creatinine Ratio 16.7 (10-20); Calcium 8.7 mg/dl (8.6-10.3); Creatinine Clr Calc Pharmacy 25.9 ml/min
[2024-04-17 08:17] LABS: Basophils # (auto) 0.04 K/uL (0.00-0.20); Basophils % (auto) 0.6 %; Eosinophils # (auto) 0.16 K/uL (0.00-0.50); Eosinophils % (auto) 2.3 %; Immature Granulocytes # (auto) 0.28 K/uL (0.01-0.20); Lymphocytes # (auto) 1.44 K/uL (1.20-3.40); Lymphocytes % (auto) 20.5 %; Monocytes # (auto) 0.69 K/uL (0.11-0.59); Monocytes % (auto) 9.8 %; Neutrophils # (auto) 4.43 K/uL (1.40-6.50); Neutrophils % (auto) 62.8 %; Ovalocytes 1+; Polychromasia 1+
--- NOTE | 2024-04-17 09:40 | Hospitalist Progress Note ---
Date of Service April 17, 2024 Assessment & Plan (1) Encephalopathy: Plan: 88-year-old lady with PMH of chronic LBBB, HTN, HLD, SAH status post coil embolization, CKD [baseline creatinine 1.2], T2DM on oral meds, GERD, dementia, mood disorder was brought to the ED with complaint of confusion. 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 She is being managed for the following: Complicated UTI Severe sepsis POA: Secondary to above. WBC, Pulse rate, lactic elevated at presentation. MATHIEU for CKD noted at presentation. Metabolic encephalopathy: Secondary to above in the setting of dementia. Resolved Generalized weakness: Secondary to above Patient presents with confusion and worsening weakness. Admitting UA suggestive of UTI, Urine culture growing E. coli. Blood culture negative Chest x-ray from 04/12 personally reviewed; opacity in right lower lung field; mild volume congestion. Will change Zosyn to Augmentin to cover for UTI and possible aspiration pneumonia. Plan for total of 7 days Airway clearance therapy with hypertonic saline, DuoNebs. Patient remains awake and alert PT/OT AFib RVR: has h/o afib, went into rvr 04/12 evening likely iso infection. 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 Metoprolol dose increased to 50 mg 3 times daily for rate control MATHIEU over CKD III: Baseline creatinine of 1.2 to 1.4, admitting creatinine of 2.2. Status post IV fluid, creatinine resolved. c/w home lisinopril. Avoid nephrotoxic, labs in AM. Uncontrolled hyperglycemia: History of T2DM on oral medications, A1c of 6.9 in December 2023. A1c of 8.0 this admission. Hold home glipizide, continue sliding scale insulin while in hospital. Repeat A1c in 3 months. Follow-up with diabetic clinic upon discharge for ongoing monitoring/management. Demand ischemia: Troponin initially up trended then flat trended around 300. Patient with no chest pain. Admitting EKG with sinus tachycardia. Likely secondary to acute illness. Continue telemetry monitoring. Traumatic T12 compression fracture: Patient currently denies pain, orthospine evaluated, TLSO brace when OOB, PT/OT. no lifting greater than 5 pounds, no bending, twisting turning. f/u in 2-3 weeks. Hypothyroidism: Patient with TSH of 11.1 at presentation. Initiated levothyroxine, continue. Repeat thyroid function test in 6 weeks, follow-up with PCP office for ongoing monitoring/management. Other chronic medical conditions: Continue with/resume home meds as when able. chronic LBBB hypertension, BP fairly under control. hyperlipidemia, on statin Rx history SAH status post coil embolization DVT prophylaxis heparin PT OT, will need snf. awaiting placement DNR/dni Updated patient's granddaughter Sana [phone]) over the phone on 04/17/2024. She is agreeable with the plan and will relay the information to the family. Please note the above document was generated using voice recognition software. It may contain grammatical, syntax or spelling errors. Any formal questions or concerns about the content, text or information contained within the body of this dictation should be directly addressed to the provider for clarification Admission and Anticipated Discharge Date Admission Date: April 10, 2024 Subjective Patient seen and examined at bedside. Comfortable; not in distress. Denies fever, chills, chest pain, shortness of breath, abdominal pain or urinary symptoms. No significant overnight events Physical Exam Physical Exam: GENERAL: Demented, comfortable, no respiratory distress, alert and awake. SKIN: Normal color, warm HEENT: [place] palpebral conjunctivae, no ptosis, moist buccal mucosa NECK : Supple, no tenderness CHEST : RLL crackles noted, no tenderness HEART : irregular in 100s-110s, no obvious murmurs BACK : Minimal mid back tenderness. ABDOMEN: Some distention, nontender EXTREMITIES : No LE swelling/tenderness, no other conspicuous deformities noted NEUROLOGIC : Demented, no facial asymmetry, MMTS BUE 4/5. BLE 4/5, gait and stance not assessed Results & Data Results & Data Vital Signs (Past 12 Hours) Vital Signs Temp Pulse Pulse Pulse Resp BP BP 04/17/24 07:36 36.8 C 106 H 20 143/75 H 04/17/24 07:26 105 H 04/17/24 07:26 76 14 04/17/24 02:53 36.7 C 90 18 113/72 04/16/24 23:15 04/16/24 22:19 36.6 C 94 H 18 104/75 04/16/24 21:46 100 H Pulse Ox O2 Del Method O2 Flow Rate 04/17/24 07:36 93 Nasal Cannula 2 04/17/24 07:26 04/17/24 07:26 93 Nasal Cannula 2 04/17/24 02:53 94 Nasal Cannula 2 04/16/24 23:15 Nasal Cannula 2 04/16/24 22:19 95 Nasal Cannula 2 04/16/24 21:46
[2024-04-18 06:40] LABS: Basophils # (auto) 0.03 K/uL (0.00-0.20); Basophils % (auto) 0.4 %; Eosinophils % (auto) 1.3 %; Hematocrit (blood only) 30.7 % (37.0-47.0); Hemoglobin 9.9 g/dl (12.0-16.0); Immature Granulocytes # (auto) 0.23 K/uL (0.01-0.20); Immature Granulocytes % (auto) 2.9 %; Lymphocytes # (auto) 1.26 K/uL (1.20-3.40); Lymphocytes % (auto) 15.8 %; Mean Corpuscular Hemoglobin 31.2 pg (25.0-34.0); Mean Corpuscular Hgb Conc 32.2 g/dL (32.0-36.0); Mean Corpuscular Volume 96.8 fL (80.0-100.0); Mean Platelet Volume 10.2 fL (9.4-12.4); Monocytes # (auto) 0.65 K/uL (0.11-0.59); Monocytes % (auto) 8.1 %; Neutrophils # (auto) 5.71 K/uL (1.40-6.50); Neutrophils % (auto) 71.5 %; Platelet Count 303 K/uL (130-400); RDW Coefficient of Variation 13.2 % (11.5-14.5); RDW Standard Deviation 47.6 fL (36.4-46.3); Red Blood Count 3.17 M/uL (4.20-5.40); White Blood Count 7.98 K/ul (4.8-10.8)
[2024-04-18 06:53] LABS: BUN Creatinine Ratio 18.9 (10-20); Calcium 8.8 mg/dl (8.6-10.3); Creatinine Clr Calc Pharmacy 28.1 ml/min; Potassium 4.3 mmol/L (3.5-5.1)
[2024-04-18] MEDS ORDERED: ALBUT/IPRATROP 3MG/0.5MG NEB 3 ML VIAL NEB PRN (07:53)
--- NOTE | 2024-04-18 08:22 | Hospitalist Progress Note ---
Date of Service April 18, 2024 Assessment & Plan (1) Encephalopathy: Plan: 88-year-old lady with PMH of chronic LBBB, HTN, HLD, SAH status post coil embolization, CKD [baseline creatinine 1.2], T2DM on oral meds, GERD, dementia, mood disorder was brought to the ED with complaint of confusion. 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 She is being managed for the following: Complicated UTI Severe sepsis POA: Secondary to above. WBC, Pulse rate, lactic elevated at presentation. MATHIEU for CKD noted at presentation. Metabolic encephalopathy: Secondary to above in the setting of dementia. Resolved Generalized weakness: Secondary to above Patient presents with confusion and worsening weakness. Admitting UA suggestive of UTI, Urine culture growing E. coli. Blood culture negative Chest x-ray from 04/12 personally reviewed; opacity in right lower lung field; mild volume congestion. Will change Zosyn to Augmentin to cover for UTI and possible aspiration pneumonia. Plan for total of 7 days Flutter valve Patient remains awake and alert PT/OT AFib RVR: has h/o afib, went into rvr 04/12 evening likely iso infection. 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 Metoprolol dose increased to 50 mg 3 times daily for rate control MATHIEU over CKD III: Baseline creatinine of 1.2 to 1.4, admitting creatinine of 2.2. Status post IV fluid, creatinine resolved. c/w home lisinopril. Avoid nephrotoxic, labs in AM. Uncontrolled hyperglycemia: History of T2DM on oral medications, A1c of 6.9 in December 2023. A1c of 8.0 this admission. Hold home glipizide, continue sliding scale insulin while in hospital. Repeat A1c in 3 months. Follow-up with diabetic clinic upon discharge for ongoing monitoring/management. Demand ischemia: Troponin initially up trended then flat trended around 300. Patient with no chest pain. Admitting EKG with sinus tachycardia. Likely secondary to acute illness. Continue telemetry monitoring. Traumatic T12 compression fracture: Patient currently denies pain, orthospine evaluated, TLSO brace when OOB, PT/OT. no lifting greater than 5 pounds, no bending, twisting turning. f/u in 2-3 weeks. Hypothyroidism: Patient with TSH of 11.1 at presentation. Initiated levothyroxine, continue. Repeat thyroid function test in 6 weeks, follow-up with PCP office for ongoing monitoring/management. Other chronic medical conditions: Continue with/resume home meds as when able. chronic LBBB hypertension, BP fairly under control. hyperlipidemia, on statin Rx history SAH status post coil embolization DVT prophylaxis heparin PT OT, will need snf. awaiting placement DNR/dni Updated patient's granddaughter Sana [phone]) over the phone on 04/17/2024. She is agreeable with the plan and will relay the information to the family. Please note the above document was generated using voice recognition software. It may contain grammatical, syntax or spelling errors. Any formal questions or concerns about the content, text or information contained within the body of this dictation should be directly addressed to the provider for clarification Admission and Anticipated Discharge Date Admission Date: April 10, 2024 Subjective Patient seen and examined at bedside. Comfortable; not in distress. Denies fever, chills, chest pain, shortness of breath, abdominal pain or urinary symptoms. No significant overnight events Review of Systems Review of Systems: All systems reviewed & are unremarkable except as noted in Subjective Physical Exam Physical Exam: GENERAL: Demented, comfortable, no respiratory distress, alert and awake. SKIN: Normal color, warm HEENT: [place] palpebral conjunctivae, no ptosis, moist buccal mucosa NECK : Supple, no tenderness CHEST : RLL crackles noted, no tenderness HEART : irregular in 100s-110s, no obvious murmurs BACK : Minimal mid back tenderness. ABDOMEN: Some distention, nontender EXTREMITIES : No LE swelling/tenderness, no other conspicuous deformities noted NEUROLOGIC : Demented, no facial asymmetry, MMTS BUE 4/5. BLE 4/5, gait and stance not assessed Results & Data Results & Data Vital Signs (Past 12 Hours) Vital Signs Temp Pulse Pulse Resp BP Pulse Ox O2 Del Method 04/18/24 07:40 84 15 97 Nasal Cannula 04/18/24 07:31 Nasal Cannula 04/18/24 07:25 36.9 C 108 H 20 102/64 97 Nasal Cannula 04/18/24 03:46 37 C 79 18 128/73 95 Room Air 04/17/24 23:25 36.6 C 101 H 18 126/75 95 Nasal Cannula 04/17/24 22:11 Nasal Cannula O2 Flow Rate 04/18/24 07:40 2 04/18/24 07:31 2 04/18/24 07:25 2 04/18/24 03:46 04/17/24 23:25 2 04/17/24 22:11 2
[2024-04-18] MEDS: LOPERAMIDE HCL 2 MG CAP PO STA (15:07)
[2024-04-18] MEDS: guaiFENesin SUGAR FREE 200 MG/10 ML UDC PO PRN (20:21)
[2024-04-19 07:32] VITALS: RESP 18
--- NOTE | 2024-04-19 08:28 | Orthopedic Progress Note ---
Date of Service April 19, 2024 Assessment & Plan (1) T12 compression fracture: Plan Patient refused TLSO brace from the manufacturing chief engineer last weekon 04/12/24. Nursing staff and Dr. Garcia were made aware. Currently, no pain, so will continue with no brace. No lifting greater than 5 pounds. PT/OT for mobilization. Okay for f/u in approx. 2 wks if pain remains well-controlled and patient is able to ambulate. Will need to be able to be transported safely to orthopedic spine clinic. Admission and Anticipated Discharge Date Admission Date: April 10, 2024 Subjective Patient denying back pain this morning. She says that an attempt was made recently to fit her with a brace but she refused it. She is saying that it has been difficult for her to walk secondary to weakness in the legs. Physical Exam Physical Exam: GENERAL: Lying in bed receiving hygiene from nurses. Does not grimace or cry out with any pain. Appears comfortable with logrolling maneuvers. RESPIRATORY: Patient with unlabored breathing. No signs of respiratory distress. BACK: Nontender over thoracolumbar spine today. SKIN: [place], warm and dry. No rash noted. MS/EXTREMITY: No swelling, no deformities. Moving extremities appropriately. NEURO: Alert and appears oriented. Motor strength is 5/5 in bilateral hip flexors, quadriceps, tibialis anterior, extensor hallucis longus, and gastroc/soleus complex. Sensation intact to light touch in the L2-S1 dermatomes bilaterally. No ankle clonus. Results & Data Vital Signs (Past 12 Hours) Vital Signs Temp Pulse Pulse Pulse Resp BP BP 04/19/24 07:31 36.8 C 71 18 143/73 H 04/19/24 07:22 66 04/19/24 05:01 66 04/19/24 03:45 36.6 C 80 16 122/58 L 04/19/24 01:09 63 04/18/24 23:14 36.7 C 67 18 132/72 04/18/24 21:25 Pulse Ox O2 Del Method 04/19/24 07:31 92 Room Air 04/19/24 07:22 04/19/24 05:01 04/19/24 03:45 94 Room Air 04/19/24 01:09 04/18/24 23:14 94 Room Air 04/18/24 21:25 Room Air Diagnostic Findings EXAM: CT Thoracic Spine Without Intravenous Contrast INDICATION: Pain and weakness following fall 6 days ago. TECHNIQUE: Axial computed tomography images of the thoracic spine without intravenous contrast. Sagittal and coronal reformatted images were created and reviewed. This CT exam was performed using one or more of the following dose reduction techniques: automated exposure control, adjustment of the mA and/or kV according to patient size, and/or use of iterative reconstruction technique. COMPARISON: No relevant prior studies available. FINDINGS: Limitations: None. Vertebrae: There is an acute fracture of the inferior endplate of T12 with mild depression. No retropulsion or subluxation. There is mild scoliotic curvature of the spine and accentuated kyphosis. There is diffuse facet arthrosis and moderate spondylosis. Discs/spinal canal/neural foramina: Multilevel moderate to space narrowing present. No stenosis. Other bones/joints: No abnormality noted. Soft tissues: No significant abnormality noted. Lungs and pleural spaces: Airway thickening and atelectasis noted in the lower lobes. Heart: No abnormality noted. Mediastinum: No significant abnormality noted. Liver: No significant abnormality noted. IMPRESSION: 1. Acute fracture inferior endplate of T12. 2. Airway thickening and atelectasis noted in the lower lobes. This could be acute or chronic. ACT 112: Negative or not required by law. Electronically signed by Sandra Palacios 04-10-2024 6:54 PM Dictated: 04/10/24 1951 Transcribed: (1) T12 compression fracture Encounter type: initial encounter Qualified Code(s): S22.080A - Wedge compression fracture of T11-T12 vertebra, initial encounter for closed fracture
--- NOTE | 2024-04-19 08:44 | Hospitalist Progress Note ---
Date of Service April 19, 2024 Assessment & Plan (1) Encephalopathy: Plan: 88-year-old lady with PMH of chronic LBBB, HTN, HLD, SAH status post coil embolization, CKD [baseline creatinine 1.2], T2DM on oral meds, GERD, dementia, mood disorder was brought to the ED with complaint of confusion. 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 She is being managed for the following: Complicated UTI Severe sepsis POA: Secondary to above. WBC, Pulse rate, lactic elevated at presentation. MATHIEU for CKD noted at presentation. Metabolic encephalopathy: Secondary to above in the setting of dementia. Resolved Generalized weakness: Secondary to above Patient presents with confusion and worsening weakness. Admitting UA suggestive of UTI, Urine culture growing E. coli. Blood culture negative Chest x-ray from 04/12 personally reviewed; opacity in right lower lung field; mild volume congestion. Patient was treated with antibiotic to cover for UTI and possible pneumonia during the hospitalization. 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 PT OT recommended rehab. 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 Metoprolol dose increased to 50 mg 3 times daily for rate control. Updated family about the finding and agree with the plan. MATHIEU over CKD III: Baseline creatinine of 1.2 to 1.4, admitting creatinine of 2.2. Status post IV fluid, creatinine resolved. c/w home lisinopril. Avoid nephrotoxic, labs in AM. Uncontrolled hyperglycemia: History of T2DM on oral medications, A1c of 6.9 in December 2023. A1c of 8.0 this admission. Hold home glipizide, continue sliding scale insulin while in hospital. Repeat A1c in 3 months. Follow-up with diabetic clinic upon discharge for ongoing monitoring/management. Traumatic T12 compression fracture: Patient currently denies pain, orthospine evaluated, TLSO brace when OOB, PT/OT. no lifting greater than 5 pounds, no bending, twisting turning. f/u in 2-3 weeks. Hypothyroidism: Patient with TSH of 11.1 at presentation. Initiated levothyroxine, continue. Repeat thyroid function test in 6 weeks, follow-up with PCP office for ongoing monitoring/management. Other chronic medical conditions: Continue with/resume home meds as when able. chronic LBBB hypertension, BP fairly under control. hyperlipidemia, on statin Rx history SAH status post coil embolization DVT prophylaxis heparin PT OT, will need snf. awaiting placement DNR/dni Updated patient's granddaughter Sana ([phone]) over the phone on 04/17/2024. She is agreeable with the plan and will relay the information to the family. Please note the above document was generated using voice recognition software. It may contain grammatical, syntax or spelling errors. Any formal questions or concerns about the content, text or information contained within the body of this dictation should be directly addressed to the provider for clarification Admission and Anticipated Discharge Date Admission Date: April 10, 2024 Subjective Patient seen and examined at bedside. She is comfortable; tolerating diet well. No significant events overnight. Heart rate better controlled overall. Review of Systems Review of Systems: All systems reviewed & are unremarkable except as noted in Subjective Physical Exam Physical Exam: GENERAL: Demented, comfortable, no respiratory distress, alert and awake. SKIN: Normal color, warm HEENT: [place] palpebral conjunctivae, no ptosis, moist buccal mucosa NECK : Supple, no tenderness CHEST : RLL crackles noted, no tenderness HEART : irregular , no obvious murmurs BACK : Minimal mid back tenderness. ABDOMEN: Some distention, nontender EXTREMITIES : No LE swelling/tenderness, no other conspicuous deformities noted NEUROLOGIC : Demented, no facial asymmetry, MMTS BUE 4/5. BLE 4/5, gait and stance not assessed Results & Data Results & Data Vital Signs (Past 12 Hours) Vital Signs Temp Pulse Pulse Pulse Resp BP BP 04/19/24 07:31 36.8 C 71 18 143/73 H 04/19/24 07:22 66 04/19/24 05:01 66 04/19/24 03:45 36.6 C 80 16 122/58 L 04/19/24 01:09 63 04/18/24 23:14 36.7 C 67 18 132/72 04/18/24 21:25 Pulse Ox O2 Del Method 04/19/24 07:31 92 Room Air 04/19/24 07:22 04/19/24 05:01 04/19/24 03:45 94 Room Air 04/19/24 01:09 04/18/24 23:14 94 Room Air 04/18/24 21:25 Room Air
--- NOTE | 2024-04-19 12:53 | Discharge Summary ---
Date of Service April 19, 2024 Admission HPI Per Admitting Provider History obtained from patient, family, and records. Limited history from patient secondary to confusion. Medical history significant for chronic LBBB, hypertension, hyperlipidemia, history SAH status post coil embolization, CRI (baseline creatinine 1.2), DM2 on oral medications, GERD, dementia, mood disorder. Patient fell at home few days ago. No syncope as per family, no chest pain, no SOB, no head trauma. Patient complaining of back pain without radiation. Patient later on noted to be more confused than usual. Loose stools noted. Trouble walking from weakness. Patient brought to ER for evaluation. IV ceftriaxone administered at the ER. BSG 497 upon arrival at the ER. Medical History as above Surgical History : ANDRAE, BSO, cholecystectomy, vascular procedure Family History : Alcoholism Personal/Social history : Non-smoker, occasional EtOH intake, retired from factory work, lives with Admission Exam Per Admitting Provider GENERAL: Demented, comfortable, no respiratory distress SKIN: Normal color, warm HEENT: [place] palpebral conjunctivae, no ptosis, dry buccal mucosa NECK : Supple, no tenderness CHEST : CTA, no tenderness HEART : RRR, no obvious murmurs BACK : Minimal mid back tenderness, negative SLR ABDOMEN: Some distention, nontender EXTREMITIES : No LE swelling/tenderness, no other conspicuous deformities noted NEUROLOGIC : Demented, no facial asymmetry, MMTS BUE 4/5. BLE 3/5, gait and stance not assessed Principal Diagnosis Complicated UTI Severe sepsis POA: Metabolic encephalopathy: Generalized weakness: Discharge Exam GENERAL: Demented, comfortable, no respiratory distress, alert and awake. SKIN: Normal color, warm HEENT: [place] palpebral conjunctivae, no ptosis, moist buccal mucosa NECK : Supple, no tenderness CHEST : RLL crackles noted, no tenderness HEART : irregular , no obvious murmurs BACK : Minimal mid back tenderness. ABDOMEN: Some distention, nontender EXTREMITIES : No LE swelling/tenderness, no other conspicuous deformities noted NEUROLOGIC : Demented, no facial asymmetry, MMTS BUE 4/5. BLE 4/5, gait and stance not assessed Discharge Data Allergies Allergy/AdvReac Type Severity Reaction Status Date / Time No Known Allergies Allergy Unverified 08/15/18 15:13 Consultations 04/10/24 20:31 ED Decision to Admit Stat 04/10/24 22:17 Consult Orthopedic Spine Surgery Routine Ordered Studies 04/10/24 17:22 CT cervical spine wo con Stat CT head/brain wo con Stat 04/10/24 18:04 CT abd pelvis wo con Stat CT chest diagnostic wo con Stat CT lumbar spine wo con Stat CT thoracic spine wo con Stat 04/13/24 10:30 FL video swallow Routine Hospital Course (1) Encephalopathy: 88-year-old lady with PMH of chronic LBBB, HTN, HLD, SAH status post coil embolization, CKD [baseline creatinine 1.2], T2DM on oral meds, GERD, dementia, mood disorder was brought to the ED with complaint of confusion. Patient fell few days ago [employer], was complaining of back pain without radiation, currently having loose stool at the time of presentation and was getting weaker. She is being managed for the following: Complicated UTI Severe sepsis POA: Secondary to above. WBC, Pulse rate, lactic elevated at presentation. MATHIEU for CKD noted at presentation. Metabolic encephalopathy: Secondary to above in the setting of dementia. Resolved Generalized weakness: Secondary to above Patient presents with confusion and worsening weakness. Admitting UA suggestive of UTI, Urine culture growing E. coli. Blood culture negative Chest x-ray from 04/12 personally reviewed; opacity in right lower lung field; mild volume congestion. Patient was treated with antibiotic to cover for UTI and possible pneumonia during the hospitalization. She also went [employer] eval for possible aspiration which was negative She underwent airway clearance therapy with hypertonic saline, DuoNeb and fl utter valve. PT OT recommended rehab. 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 Metoprolol dose increased to 50 mg 3 times daily for rate control. Updated family about the finding and agree with the plan. MATHIEU over CKD III: Baseline creatinine of 1.2 to 1.4, admitting creatinine of 2.2. Status post IV fluid, creatinine resolved. c/w home lisinopril. Avoid nephrotoxic, labs in AM. Uncontrolled hyperglycemia: History of T2DM on oral medications, A1c of 6.9 in December 2023. A1c of 8.0 this admission. Hold home glipizide, continue sliding scale insulin while in hospital. Repeat A1c in 3 months. Follow-up with diabetic clinic upon discharge for ongoing monitoring/management. Traumatic T12 compression fracture: Patient currently denies pain, orthospine evaluated, TLSO brace when OOB, PT/OT. no lifting greater than 5 pounds, no bending, twisting turning. f/u in 2-3 weeks. Hypothyroidism: Patient with TSH of 11.1 at presentation. Initiated levothyroxine, continue. Repeat thyroid function test in 6 weeks, follow-up with PCP office for ongoing monitoring/management. Updated patient's granddaughter Sana [phone]) over the phone on 04/17/2024. She is agreeable with the plan and will relay the information to the family. Please note the above document was generated using voice recognition software. It may contain grammatical, syntax or spelling errors. Any formal questions or concerns about the content, text or information contained within the body of this dictation should be directly addressed to the provider for clarification Total Time Total Time Spent Total Time Spent (In Minutes): 45 Total Time Includes: Examination of the Patient, Discharge Planning, Medication Reconciliation, Communication With Other Providers and Other Discharge Plan Discharge Items Patient Disposition: Transfer [facility] Reason For Visit: ENCEPHALOPATHY, COMP UTI Discharge Diagnosis: Complicated UTI T12 compression fracture Activity: Resume your previous activity Lifting: No more than 5 pounds Non-emergency contact: Primary Care Provider Call non-emergency contact if: you have any medication questions and your symptoms worsen Follow-up/Referrals: Zainab Herndon DO [Primary Care Provider] - Diet: Carb Consistent or DM2 Addtl Attending Provider Instructions: You were admitted to the hospital due to UTI for which you are treated with antibiotics. Your heart rate was found to be on the higher side during the hospitalization; metoprolol succinate has been changed to metoprolol tartrate 50 mg 3 times a day for better heart rate control. Please follow-up with cardiology after discharge from the rehab facility. You are started on levothyroxine for hypothyroidism. Please repeat thyroid function test in 6 weeks to adjust the dosing. No lifting more than 5 pounds, no bending. Follow-up with orthospine in 2 weeks for Pending Studies at Discharge: No Stand-Alone Forms: [employer], Smoking Cessation Medications and DC Order Prescriptions: New levothyroxine [Synthroid] 25 mcg Tablet 25 mcg PO DAILYBB 30 Days Qty: 30 0RF metoprolol tartrate 50 mg Tablet 50 mg PO TID 30 Days Qty: 90 0RF Continued glipizide 2.5 mg tablet extended release 24hr 2.5 mg PO DAILY atorvastatin 10 mg tablet 10 mg PO DAILY Qty: 30 0RF amlodipine 10 mg tablet 10 mg PO DAILY Qty: 30 0RF pantoprazole 40 mg tablet,delayed release (DR/EC) 40 mg PO DAILY Qty: 30 0RF lisinopril 5 mg tablet 5 mg PO DAILY Qty: 30 0RF Discontinued metoprolol succinate 25 mg tablet extended release 24 hr 25 mg PO DAILY Discharge Orders: Discharge Order (Routine); Ordered 04/19/24 Ordered By: Arvind Kahn/Other Patient Handouts: Managing Type 2 Diabetes Admission Data Admit Date/Time: 04/10/24 21:58 Attending Provider: Arvind Redding Admit Provider: Matt Norris Primary Care Provider: Zainab Herndon Other Providers: Matt Norris; Ashok Garcia; [facility]
[2024-04-19 14:58] VITALS: BP 137/66; TEMP 99.1; O2SAT 93
[2024-04-19 17:08] VITALS: PULSE 80
== END 2024-04-19 17:08 | DRG 871 ==
LOC: ED 16:50 → SUATTDRO 21:58 → 2N 21:58